=== PATIENT | male | born 2000 | race Caucasian/White ===

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

== ENCOUNTER 2019-11-02 19:26 | Inpatient (IN) ==
--- NOTE | 2019-11-02 19:55 | Emergency Department Note ---
History of Present Illness General Chief complaint: Mental Health Evaluation Stated complaint: mental health eval Time Seen by Provider: 11/02/19 19:38 Source: patient and other (Mental health wrapper caser) History of Present Illness Provider complaint: Headache Onset (ago): hour(s) Location: head Radiation: non-radiation Severity: mild Pain Consistency: + constant Quality: + aching Exacerbated By: + none Associated symptoms: + other (Upset); no chest pain, no cough, no fever/chills, no nausea/vomiting and no shortness of breath This is a 19-year-old male who is brought in by police for mental health evaluation. The patient does complain of a mild frontal headache which occurred after hitting his head with a speaker earlier this morning. He describes it as an ache. Is located in the frontal region without radiation. No modifying factors. No associated numbness or weakness in his extremities, dizziness or vomiting. According to the mental health wrapper caser the patient was here about a week ago and lied about falling when he actually hit his head against a tree. His father reported that he try to cut his stroke with a knife last night and he had to stop them. The patient denies feeling suicidal. He states that he just got upset because people aggravate him and that if he was given some time he would be fine. He denies any other physical complaints. He has no chest pain, shortness of breath, abdominal pain, vomiting or diarrhea, cough or cold symptoms or fever. He does admit to some alcohol use today and denies drug use. Home Medications Home Medications Medication Instructions Recorded Confirmed Type amitriptyline 50 mg PO HS 04/18/19 11/02/19 History clonidine HCl 0.1 mg PO HS 04/18/19 11/02/19 History quetiapine 300 mg PO HS 04/18/19 11/02/19 History hydroxyzine HCl 50 mg PO HS PRN 09/24/19 11/02/19 History melatonin 3 mg PO HS PRN 11/02/19 11/02/19 History Allergies Allergy/AdvReac Type Severity Reaction Status Date / Time Penicillins Allergy Intermediate HIVES Verified 11/02/19 20:21 haloperidol [From Haldol] AdvReac Agitated Verified 11/02/19 21:29 Past Med/Surg History Medical History Autism spectrum disorder Cannabis abuse Cluster B personality disorder Mood disorder Outbursts of anger Surgical History No pertinent past surgical history Family History Mother Bipolar disorder Uncle Drug addiction Social History Smoking Status: Current every day smoker Tobacco Type: Cigarettes Preferred Language: Kiswahili Communication Ability: Effective Visual Impairment: No Limitations Hearing Ability: Normal Cork Tile Floor Layer Required: No Beliefs That Will Affect Care: None Current Living Situation: Family Feels Safe at Home: Yes Review of Systems See HPI for pertinent positives & negatives. and A total of 10 systems reviewed and were otherwise negative Physical Exam Vital Signs Vital Signs - 24 hr 11/02/19 19:33 11/02/19 23:29 Temperature 37 C Temperature Source Oral Pulse Rate 83 Pulse Rate [Finger] 129 H Respiratory Rate 18 18 Respiratory Effort / Characteristics Non-Labored Respiratory Depth Normal Respiratory Pattern Regular Blood Pressure 161/98 H Blood Pressure [Left Arm] 149/89 H Blood Pressure Mean 119 Blood Pressure Mean [Left Arm] 109 Pulse Oximetry 96 97 Oxygen Delivery Method Room Air Room Air Sepsis Recent Fever Within 48 Hours No Sepsis New/Unexplained Change in Mental Status No Sepsis Action Taken by Nursing No Action Required Constitutional: Vital signs reviewed. Eyes: Pupils are equal round reactive to light. Conjunctiva are noninjected. ENT: No soft tissue swelling to the head. Pharynx is clear without erythema or exudate. Mucous membranes are moist. Neck supple without meningeal signs. Respiratory: Clear to auscultation bilaterally. Breath sounds are equal bilaterally. Cardiovascular: Regular rate and rhythm. No rubs or gallops. GI: Soft, nondistended and nontender. Bowel sounds are present. Musculoskeletal: No peripheral edema. Old scattered lacerations to the left forearm. No signs of cellulitis. Integumentary: No cyanosis. or jaundice. Neurologic: The patient is awake and alert. Cranial nerves II-XII are intact. Motor is 5 out of 5 all extremities. Sensation is intact to light touch all extremities. Normal speech. No pronator drift. Psychiatric: Guarded affect. Course Administered Medications Discontinued Medications Diphenhydramine HCl (Diphenhydramine Hcl 50 Mg/Ml Vial) 50 mg IM NOW STA Stop: 11/02/19 21:44 Last Admin: 11/02/19 21:57 Dose: 50 mg Documented by: [id number] Haloperidol Lactate (Haloperidol Lactate 5 Mg/Ml 1 Ml Vial) 5 mg IM NOW STA Stop: 11/02/19 21:14 Last Admin: 11/02/19 21:29 Dose: Not Given Documented by: [id number] Haloperidol Lactate (Haloperidol Lactate 5 Mg/Ml 1 Ml Vial) 10 mg IM NOW STA Stop: 11/02/19 23:56 Last Admin: 11/03/19 00:01 Dose: 10 mg Documented by: [id number] Lorazepam (Lorazepam 2 Mg/Ml Vial (Im Use)) 2 mg IM NOW STA Stop: 11/02/19 21:14 Last Admin: 11/02/19 21:29 Dose: 2 mg Documented by: [id number] Medical Decision Making Differential Diagnosis Mood disorder, suicidal ideation, concussion, contusion, alcohol intoxication Medical Records Attestation: I reviewed the patient's medical records. I did perform a limited focused review of portions of the patient's old chart on the electronic medical record. The patient was seen here in July for self- injurious behavior including head banging and cutting of his left arm. He was discharged home after treatment in the emergency department. The patient was seen here October 25 for a head injury. He had a negative head CT at that time and was discharged home. Home Medications Current Medication List: was personally reviewed by me Laboratory Data Attestation: I reviewed the patient's lab results. Result diagrams: 11/02/19 20:15 11/02/19 20:15 Lab Results 11/02/19 11/02/19 11/02/19 Range/Units 20:15 20:15 20:15 WBC 7.50 (4.8-10.8) K/uL RBC 5.09 (4.7-6.1) M/uL Hgb 16.0 (14.0-18.0) g/dL Hct 45.3 (42-52) % MCV 89.0 (80-100) fL MCH 31.4 (25-34) pg MCHC 35.3 (32-36) g/dL RDW Std Deviation 41.7 (36.4-46.3) fL RDW Coeff of Efrem 12.9 (11.5-14.5) % Plt Count 336 (130-400) K/uL MPV 8.8 (7.4-10.4) fL Immature Gran % (Auto) 0.1 % Neut % (Auto) 62.5 % Lymph % (Auto) 31.1 % [place] % (Auto) 5.3 % Eos % (Auto) 0.7 % Baso % (Auto) 0.3 % Neut # (Auto) 4.69 (1.4-6.5) K/uL Lymph # (Auto) 2.33 (1.2-3.4) K/uL [place] # (Auto) 0.40 (0.11-0.59) K/uL Eos # (Auto) 0.05 (0-0.5) K/uL Baso # (Auto) 0.02 (0-0.2) K/uL Immature Gran # (Auto) 0.01 (0.00-0.02) K/uL Sodium 142 (136-145) mmol/L Potassium 3.8 (3.5-5.1) mmol/L Chloride 110 H (98-107) mmol/L Carbon Dioxide 24 (21-32) mmol/L Anion Gap 8.0 (3-11) BUN 8 (7-18) mg/dl Creatinine 0.74 (0.6-1.4) mg/dl Est Cr Clr Drug Dosing Not Reportable Est GFR ( Amer) > 150.0 Est GFR (Non-Af Amer) 132.8 BUN/Creatinine Ratio 11.1 (10-20) Glucose 84 (70-99) mg/dl Calcium 8.8 (8.5-10.1) mg/dl Total Bilirubin 0.4 (0.2-1) mg/dl AST 19 (15-37) U/L ALT 35 (12-78) U/L Alkaline Phosphatase 70 (45-117) U/L Total Protein 7.7 (6.4-8.2) gm/dl Albumin 3.9 (3.4-5.0) gm/dl Globulin 3.8 (2.5-4.0) gm/dl Albumin/Globulin Ratio 1.0 (0.9-2) TSH 0.255 L (0.300-4.500) uIu/ml Free T4 1.15 (0.8-1.6) ng/dl Urine Color Urine Appearance (Clear) Urine pH (4.5-7.5) Ur Specific [place] (1.000-1.030) Urine Protein (Negative) Urine Glucose (UA) (Negative) Urine Ketones (Negative) Urine Blood (Negative) Urine Nitrite (Negative) Urine Bilirubin (Negative) Urine Urobilinogen (Negative) Ur Leukocyte Esterase (Negative) Salicylates < 1.7 L (2.8-20) mg/dl Urine Opiates Screen (Neg) Ur Methadone, Qual (Neg) Acetaminophen < 2 L (10-30) ug/ml Urine Barbiturates (Neg) Ur Phencyclidine (PCP) (Neg) U Amphetamin/Meth Scrn (Neg) MDMA (Ecstasy) Screen (Neg) U Benzodiazepines Scrn (Neg) Ur Cocaine Metabolite (Neg) U Marijuana (THC) Screen (Neg) Ethyl Alcohol mg/dL (0-3) mg/dl 11/02/19 11/02/19 11/02/19 Range/Units 20:15 20:28 20:28 WBC (4.8-10.8) K/uL RBC (4.7-6.1) M/uL Hgb (14.0-18.0) g/dL Hct (42-52) % MCV (80-100) fL MCH (25-34) pg MCHC (32-36) g/dL RDW Std Deviation (36.4-46.3) fL RDW Coeff of Efrem (11.5-14.5) % Plt Count (130-400) K/uL MPV (7.4-10.4) fL Immature Gran % (Auto) % Neut % (Auto) % Lymph % (Auto) % [place] % (Auto) % Eos % (Auto) % Baso % (Auto) % Neut # (Auto) (1.4-6.5) K/uL Lymph # (Auto) (1.2-3.4) K/uL [place] # (Auto) (0.11-0.59) K/uL Eos # (Auto) (0-0.5) K/uL Baso # (Auto) (0-0.2) K/uL Immature Gran # (Auto) (0.00-0.02) K/uL Sodium (136-145) mmol/L Potassium (3.5-5.1) mmol/L Chloride (98-107) mmol/L Carbon Dioxide (21-32) mmol/L Anion Gap (3-11) BUN (7-18) mg/dl Creatinine (0.6-1.4) mg/dl Est Cr Clr Drug Dosing Est GFR ( Amer) Est GFR (Non-Af Amer) BUN/Creatinine Ratio (10-20) Glucose (70-99) mg/dl Calcium (8.5-10.1) mg/dl Total Bilirubin (0.2-1) mg/dl AST (15-37) U/L ALT (12-78) U/L Alkaline Phosphatase (45-117) U/L Total Protein (6.4-8.2) gm/dl Albumin (3.4-5.0) gm/dl Globulin (2.5-4.0) gm/dl Albumin/Globulin Ratio (0.9-2) TSH (0.300-4.500) uIu/ml Free T4 (0.8-1.6) ng/dl Urine Color Yellow Urine Appearance Clear (Clear) Urine pH 6.0 (4.5-7.5) Ur Specific [place] 1.019 (1.000-1.030) Urine Protein Negative (Negative) Urine Glucose (UA) Negative (Negative) Urine Ketones Trace H (Negative) Urine Blood Negative (Negative) Urine Nitrite Negative (Negative) Urine Bilirubin Negative (Negative) Urine Urobilinogen Negative (Negative) Ur Leukocyte Esterase Negative (Negative) Salicylates (2.8-20) mg/dl Urine Opiates Screen Neg (Neg) Ur Methadone, Qual Neg (Neg) Acetaminophen (10-30) ug/ml Urine Barbiturates Neg (Neg) Ur Phencyclidine (PCP) Neg (Neg) U Amphetamin/Meth Scrn Neg (Neg) MDMA (Ecstasy) Screen Neg (Neg) U Benzodiazepines Scrn Neg (Neg) Ur Cocaine Metabolite Neg (Neg) U Marijuana (THC) Screen Neg (Neg) Ethyl Alcohol mg/dL 133.0 H (0-3) mg/dl Blood Pressure Blood Pressure Findings: Elevated blood pressure Blood Pressure Disposition: Referred to patients primary care provider Head Trauma GCS Score: 15 MDM Narrative I did evaluate the patient as noted above. The patient is brought in here by police for self-injurious behavior. His father states that he tried to cut his own throat yesterday. He did fill out a 302 petition. The patient states that he was just upset and admits to drinking alcohol earlier today. He denies suicidal ideation or homicidal ideation at this time. He complains of minor headache from hitting his head with a speaker. He is absolutely refusing head CT at this time. He is neurologically intact. I did order a urine analysis. I did order and review the patient's blood work as noted in the electronic medical record. His CBC is unremarkable without leukocytosis or anemia. Electrolytes are unremarkable as well. Serum alcohol is 133. During his evaluation in the emergency department the patient became increasingly agitated. We were unable to talk him down and he became increasingly aggressive. He was given Benadryl 50 and Ativan 2 mg IM. Apparently he has a Haldol adverse reaction listed. The patient became increasingly more agitated and had to be placed in full leather restraints. At one point he tried to break his cell phone and use the last 2 cut himself. I did signed the 302 involuntary commitment form. The delegate from [facility] did evaluate the patient. She spoke to the psychiatrist on-call who requested the patient be given 10 mg of Haldol IM as he has received Haldol multiple times in the past. I did go ahead and order 10 mg of Haldol IM. He did calm down significantly. He was admitted to the [facility] behavioral unit under a 302 warrant. Impression & Plan Mood disorder, Head injury, Self-injurious behavior, Suicidal ideation Discharge Plan Visit Data Chief Complaint: Mental Health Evaluation Stated Complaint: mental health eval ED Provider: Brenden Licea Discharge Problem: Mood disorder, Head injury, Self-injurious behavior, Suicidal ideation Forms Stand Alone Forms: [facility], Suicide Prevention Resources Prescriptions Prescriptions: No Action amitriptyline 50 mg tablet 50 mg PO HS RF: 0 quetiapine 300 mg tablet 300 mg PO HS RF: 0 clonidine HCl 0.1 mg tablet 0.1 mg PO HS RF: 0 hydroxyzine HCl 50 mg tablet 50 mg PO HS PRN (Reason: Agitation) RF: 0 melatonin 3 mg Tablet 3 mg PO HS PRN (Reason: Sleep) RF: 0 Referrals Referrals: Qing Marquez MD [Primary Care Provider] - Discharge Problem: Head injury Qualifiers: Encounter type: initial encounter Qualified Code(s): S09.90XA - Unspecified injury of head, initial encounter
[2019-11-02 20:28] LABS: Basophils # (auto) 0.02 K/uL (0-0.2); Basophils % (auto) 0.3 %; Eosinophils # (auto) 0.05 K/uL (0-0.5); Eosinophils % (auto) 0.7 %; Hematocrit (blood only) 45.3 % (42-52); Immature Granulocytes # (auto) 0.01 K/uL (0.00-0.02); Immature Granulocytes % (auto) 0.1 %; Lymphocytes # (auto) 2.33 K/uL (1.2-3.4); Lymphocytes % (auto) 31.1 %; Mean Corpuscular Hemoglobin 31.4 pg (25-34); Mean Corpuscular Hgb Conc 35.3 g/dL (32-36); Mean Platelet Volume 8.8 fL (7.4-10.4); Monocytes % (auto) 5.3 %; Neutrophils # (auto) 4.69 K/uL (1.4-6.5); Neutrophils % (auto) 62.5 %; Platelet Count 336 K/uL (130-400); RDW Coefficient of Variation 12.9 % (11.5-14.5); RDW Standard Deviation 41.7 fL (36.4-46.3); Red Blood Count 5.09 M/uL (4.7-6.1)
[2019-11-02 20:37] LABS: Appearance Urine Clear (Clear); Bilirubin Urine Negative (Negative); Blood Urine Negative (Negative); Color Urine Yellow; Glucose Urine UA Negative (Negative); Ketones Urine Trace (Negative); Leukocyte Esterase Urine Negative (Negative); Nitrite Urine Negative (Negative); Protein Urine Negative (Negative); Specific Gravity Urine 1.019 (1.000-1.030); Urobilinogen Urine Negative (Negative)
[2019-11-02 20:45] LABS: Alanine Aminotransferase 35 U/L (12-78); Albumin Level 3.9 gm/dl (3.4-5.0); Aspartate Aminotransferase 19 U/L (15-37); BUN Creatinine Ratio 11.1 (10-20); Blood Urea Nitrogen 8 mg/dl (7-18); Calcium 8.8 mg/dl (8.5-10.1); Carbon Dioxide 24 mmol/L (21-32); Chloride 110 mmol/L (98-107); Est GFR (African American) > 150.0; Est GFR (Non-African American) 132.8; Glucose 84 mg/dl (70-99); Potassium 3.8 mmol/L (3.5-5.1); Sodium 142 mmol/L (136-145)
[2019-11-02 20:55] LABS: Alkaline Phosphatase 70 U/L (45-117); Bilirubin,Total 0.4 mg/dl (0.2-1); Globulin 3.8 gm/dl (2.5-4.0); Thyroid Stimulating Hormone 0.255 uIu/ml (0.300-4.500); Total Protein 7.7 gm/dl (6.4-8.2)
[2019-11-02 20:58] LABS: Acetaminophen < 2 ug/ml (10-30); Salicylate < 1.7 mg/dl (2.8-20)
[2019-11-02] MEDS ORDERED: NICOTINE POLACRILEX 2 MG GUM MT PRN (21:00)
[2019-11-02 21:08] LABS: T4 Free Thyroxine 1.15 ng/dl (0.8-1.6)
[2019-11-02] MEDS ORDERED: LORazepam 2 MG/ML VIAL (IM USE) IM STA (21:13)
[2019-11-02] MEDS ORDERED: HALOPERIDOL LACTATE 5 MG/ML 1 ML VIAL IM STA ×2 (21:13→23:55)
[2019-11-02] MEDS ORDERED: DiphenhydrAMINE HCL 50 MG/ML VIAL IM STA (21:43)
[2019-11-02 22:01] LABS: Amphetamines+Metham, Urine Neg (Neg); Barbiturates, Urine Neg (Neg); Benzodiazepine, Urine Neg (Neg); Cocaine, Urine Neg (Neg); MDMA (Ecstacy), Urine Neg (Neg); Methadone, Urine Neg (Neg); Opiate, Urine Neg (Neg); Phencyclidine, Urine Neg (Neg)
[2019-11-02] MEDS ORDERED: KETAMINE HCL INJ 50 MG/ML 10 ML VIAL IM PRN (22:13)
[2019-11-03] MEDS ORDERED: ACETAMINOPHEN 325 MG TAB PO PRN (02:47)
[2019-11-03] MEDS ORDERED: BISMUTH SUBSALICYLATE PER ML OMNICELL CHARGE PO PRN (02:47)
[2019-11-03] MEDS ORDERED: SODIUM CHLORIDE 0.65% NA SOLN 45 ML (OCEAN) PRN (02:47)
[2019-11-03] MEDS ORDERED: MAGNESIUM HYDROXIDE SUSP 30 ML UDC PO PRN (02:47)
[2019-11-03] MEDS ORDERED: ALUMINUM/MAGNESIUM SUSP 30 ML UDC PO PRN (02:47)
[2019-11-03] MEDS ORDERED: haloperidoL 5 MG TAB PO PRN (02:48)
[2019-11-03] MEDS ORDERED: BENZTROPINE MESYLATE 1 MG TAB PO PRN (02:51)
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
[2019-11-03] MEDS ORDERED: MELATONIN 3 MG TAB PO PRN (09:32)
[2019-11-03] MEDS: cloNIDine HCL 0.1 MG TAB PO SCH ×2 (10:48→19:57)
[2019-11-03] MEDS ORDERED: QUETIAPINE FUMARATE 300 MG TABLET PO ONE (19:45)
[2019-11-03] MEDS: haloperidoL 5 MG TAB PO SCH (20:01)
[2019-11-04 06:01] LABS: Glucose Fasting 75 mg/dl (70-99)
[2019-11-04 06:07] LABS: Chol HDL Ratio 3; Cholesterol 118 mg/dl (0-200); HDL Cholesterol 42 mg/dl; LDL Cholesterol Calculated 62 mg/dl; Triglycerides 72 mg/dl (0-150); VLDL Cholesterol 14 mg/dl
--- NOTE | 2019-11-04 06:29 | Electrocardiogram Report ---
Test Reason : Blood Pressure : / mmHG Vent. Rate : 093 BPM Atrial Rate : 093 BPM P-R Int : 214 ms QRS Dur : 096 ms QT Int : 340 ms P-R-T Axes : 047 029 046 degrees QTc Int : 422 ms Sinus rhythm with 1st degree A-V block Otherwise normal ECG When compared with ECG of 24-SEP-2019 22:37, [place] interval has increased Confirmed by Jama Mchugh ([id number]) on 11/04/2019 6:29:18 AM Referred By: REFERRED SELF Confirmed By:Jama Mchugh
[2019-11-04] MEDS: cloNIDine HCL 0.1 MG TAB PO SCH ×2 (07:53→20:27)
[2019-11-04] MEDS ORDERED: OLANZAPINE ZYDIS 10 MG ORALLY DIS. TAB PO STA ×2 (09:27→11:26)
--- NOTE | 2019-11-04 09:29 | Psychiatric Progress Note ---
Date of Service November 04, 2019 Impression / Recommendations Impression 19-year-old male who lives with a family friend, James, whom he refers to as his grandfather, has a history of schizophrenia, cluster B personality disorder, mood disorder with anger outbursts, substance abuse, and autism spectrum disorder, numerous previous inpatient hospitalizations, and longstanding treatment noncompliance who presented with police after he smashed a speaker over his head, and attempted to cut his throat with a knife the day prior. He is admitted on a 302 with petition from James stating he has been increasingly aggressive, noncompliant with medications, engaging in self injury, has been depressed, angry, and suicidal. The patient was agitated and aggressive in the ER, requiring physical and chemical restraints. He was uncooperative with the admission assessment. I will file for 303 hearing to be held tomorrow, as his commitment expires on Thursday which is a holiday, and recommend medications over objection. Inpatient treatment is medically necessary due to the severity of his symptoms and risk for harm to both himself and others if discharged. He would benefit from a long-acting injectable antipsychotic. Arrangements for a case resource manager have been made and his new case resource manager, Mr. Chatman, has been introduced to the patient. The 303 petition for continued hospitalization was granted and the hearing today, and although the patient had been quite agitated during the hearing he seemed to have calm down when the testimony cited our observation that he was having substantial difficulty regulating his mood in the face of relatively minor stimuli, whether positive or negative. When it was determined that he would be retained at the hospital, the patient smiled and said that he wanted to work with us to "get better," and hope that he could be discharged "as soon as possible." Ideally, the patient will be placed on a long-term injectable psychiatric medication. He received a stat dose of Zyprexa 10 mg this morning because of agitation, and the patient seems to responded quite well to it and even made a point several times to say that he liked the medication and that he would continue to take it because he feels that it helps. Accordingly, it may be somewhat difficult to convince him to an oral medication that can be converted to an injectable medication, such as aripiprazole or paliperidone. A second opinion regarding the need for medications over objection has been provided by the undersigned, but apart from Too the patient full except recently says that he does not want to take--finding a short acting medication that can be given over objection before converting to a long- acting medication is the issue. Accordingly, we may end up continuing Zyprexa with the patient's favorable response and his personal endorsement during the s lakes[place] and at discharge. (1) Suicidal ideation: 11/02 -continue involuntary hospitalization, suicide checks for safety. -He will need a family meeting with James once he is in better behavioral control, to review standard safety recommendations including ensuring no access to weapons or medications in the home, and review of a discharge safety plan. 11/03 -Today, the patient reports that he is not having thoughts of suicide, but he also says that he has had difficulty regaining self possession when irritated or frightened or frustrated. As recently as yesterday, this difficulty regaining self possession has led to dangerous behaviors; such as breaking solid objects over his head, banging his head, or attempting to cut himself with sharp objects, and the nature and degree these volitional behaviors represent a substantial and eminent risk of serious morbidity or mortality if not successfully treated. (2) Schizophrenia: 11/02 -history of schizophrenia noted in records, has been on multiple antipsychotics and reportedly did well on clozapine, but was nonadherent. Most recently was on quetiapine prescribed by Dr. Deshpande, but indicated he had not been taking it for several months. A more potent antipsychotic is indicated for acute stabilization, and as he responded well to haloperidol in the past and on presentation in the ER, I will order 5 mg at bedtime to start. -He would benefit from a long-acting injectable antipsychotic and will work towards that during this hospitalization. Fasting labs ordered tomorrow for monitoring on an antipsychotic. -Recommend ongoing involuntary inpatient treatment, and will file for 303 hearing to be held tomorrow, as his commitment expires 11/07/2019 which is a holiday. -Recommend medications over objection, as he has a clear history of severe mental illness with repeated serious attempts to harm himself in the setting of medication noncompliance. His symptoms are unlikely to improve without medication, and he has demonstrated improvement when on psychotropic medications in the past. Dr. Mcgee will see him tomorrow for a second opinion. -Coordinate care with outpatient clinicians (C[facility] Schuster at [facility] and Dr. Bassett), unclear if he has a blended case resource manager but would benefit from one. Consider a [address] [place] [address]. 11/03 -Second opinion for medication over objection completed by Dr. Mcgee today. (See supplemental note) -With a great deal of encouragement and explanations from Dr. Mcgee and staff the patient did agree to take Zyprexa Zydis 10 mg by mouth voluntarily. Approximately 30 or 40 minutes later he approached us to say that he feels that the medication had been helpful and that he was feeling "better." Later in the morning, the patient said that he had again started to a little anxious, and given the fact that he had responded favorably and without any noted adverse effects to Zyprexa 10 mg p.o., we gave him a second dose of Zyprexa Zydis 10 mg by mouth. The patient reported that he "likes" Zyprexa Zydis because it "calm his [him] down," and allows him to think "more slowly." He also spontaneously explained that he felt that Zyprexa was helping him to be far less emotionally irritable, and that he understood that that was 1 of the major goals of the current hospitalization. -It is agreed that given the patient's long history of nonadherence the ideal medication would be one that could be given as a long-acting injectable. However, at this point, the patient is saying that he does not want any medication other than Zyprexa, and that he absolutely would not consider ever voluntarily taking haloperidol. With the patient's condition improves and he regains behavioral control, it may be possible to convince the patient to try oral immediate release Invega, and then, if tolerated, switch to Invega Sustenna. However, it is anticipated that this will be a short stay with community reentry as soon as possible. (3) Mood disorder: 11/02 -in the past has been diagnosed with rule out bipolar disorder versus depressive disorder, and his paint and table edger notes he has appeared depressed lately. Patient not cooperative with assessment today, so we will continue to try to engage him. -Consider a trial of Depakote to target mood instability and anger outbursts. 11/02 -The patient does not meet standard criteria for bipolar 1 or 2, but the diagnosis of rapid cycling or atypical bipolar disorder must be considered. Zyprexa, alone, may prove to be effective in stabilizing the patient's mood. In addition to Depakote, other mood stabilizer such as lamotrigine may be an option. However, adherence with multiple psychiatric medications can reasonably be projected to be an issue in this case. (4) Outbursts of anger: 11/02 -longstanding issue, likely related to ASD and personality traits. Continue private room and use of the ALMITA, excused from groups until under better behavioral control. 11/03 -see above. (5) Self-injurious behavior: 11/02 -work on healthy coping skills to use in place of self injury, consider Depakote as above. 11/03 -Zyprexa Zydis 10 mg twice a day as being started. The patient has received a combined dosage of 20 mg of Zyprexa Zydis today and is self reporting improvemen t. The treatment team is also noticing that the patient's behavior seems to have come under much better control and that he seems less impulsive, and less emotionally labile. (6) Autism spectrum disorder: (7) Noncompliance: 11/02 -recommend OROZCO and 304 IOC. (8) Cluster B personality disorder: Risk Factors Assessment Male: Yes : Yes Do You Have Access To A Gun?: No Health Problems: No Mental Health Diagnoses: Yes Substance Use Disorders: Yes Previous Attempt: Yes Previous Psychiatric Hospitalization: Yes Smoker: Yes Protective Factors Assessment : No Responsible for Young Children: No Employed: No Stable Relationships: No Supportive Family: No Good Rapport with Provider: No Interval History Chief Complaint "I Got Paranoid and Busted up my speaker". Review of Systems Sleep Information Total Hours of Sleep: 8.25 Sleep Comments: Pt on Q 15 minute checks. Meal Information Percent Meal Consumed - Breakfast: 0 Percent Meal Consumed - Lunch: 50 Percent Meal Consumed - Dinner: 100 Nutrition Comment: pt. ate his breakfast at 1100 Subjective Subjective Patient was seen & assessed and interval progress reviewed with treatment team. I met individually with the patient in order to assess his mental status, evaluate his response to treatment, make any necessary changes in the patient's treatment regimen and coordination with the patient, explain the purpose of, and the procedures that were to be followed, during his involuntary commitment (303) hearing this morning, and address issues, questions and concerns that may arise. The patient began by describing the circumstances that had led to his admission. He told me that he was feeling "paranoid" (in his word) and said that he was aware that people were following him, attempting to harass him, and possibly trying to hurt him. The patient notes that he was frustrated by the above circumstance and, within this context, was feeling extremely irritable and sensitive to what he referred to as "Bull Shit from people." He acknowledges that he engaged in behaviors such as breaking his "speaker" (apparently referring to a portable audio device that he uses to play or listen to music) over his head. He also acknowledges that this had happened shortly prior to his evaluation in the emergency room. The patient also acknowledges that he had "banged" his head into a tree, again and frustration because he felt that he was being harassed and followed by people, or that people were intentionally trying to irritate him. I mentioned that there was a report in the record that he had also recently held a knife to his throat, and the patient said that this was not "exactly true," but did not have an alternative explanation. Also, he acknowledges that the multiple superficial cuts about both of his forearms were caused by self-inflicted wounds. Of note is the report that, in the emergency room when being evaluated for admission to 3 . the patient broke his cell phone and used pieces of the cell phone to attempt to cut himself. During our interview, the patient became very agitated when I brought up the question of medication. He told me that he would only consider "Xanax, Ativan, or may be Klonopin," and when I told him that I would not recommend prescribing a benzodiazepine, he became even more angry and said, "I am not asking for any of that shit. I want Xanax, Ativan or Klonopin." Attempts to explain that the medications that he mentioned were all benzodiazepines met with and even anger response and it became necessary to drop the subject. He became very angry when I suggested that perhaps we could prescribe haloperidol, particularly since he had had a favorable response to it in the emergency room on the day of admission (yesterday). Paradoxically, the patient acknowledged that it had helped him, and then after seeming to have realized what he had just said, he quickly added, "but it makes me worse. I cannot take it. It makes me extremely paranoid." Several other medications were mentioned in the patient also said that he would declined to take those medications and zeroed back to "Xanax, Ativan, or Klonopin." Although the purpose and details of what was then the upcoming involuntary 303 hearing were reviewed with the patient by the undersigned prior to the hearing, he entered the hearing and immediately said, on record, "what is this? Why am I here?" He shouted over attempts to again explain the purpose of the hearing, and he repeated several times "am I I going to go home after this?!" He frequently attempted to interrupt the hearing and we had trouble redirecting him. However, he did listen intently when I (Dr. Mcgee) testified that a serious concern is the fact that the patient is so emotionally explosive and that he has demonstrated that even slight provocations can lead to angry outbursts that are so intense that they frighten other people. The patient did agree to take Zyprexa Zydis 10 mg, and about 40 minutes later he said that it helped. Later in the morning, he told me that he felt that the Zyprexa had been "really good," and that he thought that it helped him be "more calm" and that it seemed to "stop [him] from getting upset and agitated like I have been doing." Later, he complained of anxiety, and received a second dose of Zyprexa Zydis 10 mg, and he reported that the anxiety resolved fairly quickly thereafter. He was retained at his 303 hearing after the petition was granted. We also met with the patient's new case resource manager, Mr. Chatman, described our goals for our plan effort to reintegrate Mr. Melchor back into the community when clinically stable. Physical Exam Psychiatric Orientation: alert, oriented x 3 and cooperative Apperance: appropriately dressed, appropriately groomed and appeared stated age Eye Contact: + fair eye contact Motor Behavior: + psychomotor agitation Speech: + loud speech The patient's speech ranged from normal and "playful" to furious and shouting, dependent on relatively minor queues. Affect: + labile affect and + angry affect The patient's affect ranged from silly to angry in rapid succession. Mood: + irritable mood and + angry mood Thought Process: + tangential thought process, + perseveration and + concrete thought process Thought Content: + delusions (Patient reports that he is being followed and harassed by other people and that these persons, usually unknown to him, may be planning to cause physical harm or emotional distress.) and + persecution Suicidal Thoughts: denies suicidal thoughts However, the patient is repeatedly engaged in self-injurious behaviors that are such that they have the potential to have caused serious physical harm or even . Homicidal Thoughts: denies homicidal thoughts Patient reports that he is not intending to cause physical harm to other people. However, he required physical restraints yesterday in the emergency department because he was perceived as being out of control and potentially dangerous to other people. Hallucinations: + auditory hallucinations Cognition: recent memory grossly intact; + attention not intact Estimated Intelligence: + below average estimated intelligence Insight: + poor insight Judgement: + poor judgement Vital Signs (Past 24 Hours) Last Vital Signs Temp 36.6 C 11/04/19 06:00 Pulse 65 11/04/19 06:48 Resp 20 11/04/19 06:00 BP 129/87 11/04/19 06:48 Pulse Ox 96 11/03/19 03:41 Results & Data ([facility]) Laboratory Results Laboratory Results - last 24 hr 11/04/19 04:41 Fasting Glucose 75 Triglycerides 72 Cholesterol 118 LDL Cholesterol, Calc 62 VLDL Cholesterol, Calc 14 HDL Cholesterol 42 Cholesterol/HDL Ratio 3 Current Inpatient Medications Current Inpatient Medications: Current Inpatient Medications Acetaminophen (Acetaminophen 325 Mg Tab) 650 mg PO Q4H PRN PRN Reason: Headache or Minor Fever Stop: 12/03/19 02:46 Al Hydrox/Mg Hydrox/Simethicone (Aluminum/Magnesium Susp 30 Ml Udc) 30 ml PO Q4H PRN PRN Reason: GI Upset Stop: 12/03/19 02:46 Benztropine Mesylate (Benztropine Mesylate 1 Mg Tab) 1 mg PO Q4 PRN PRN Reason: EPS SYMPTOMS Stop: 12/03/19 02:50 Bismuth Subsalicylate (Bismuth Subsalicylate Per Ml Omnicell Charge) 15 ml PO PRN PRN PRN Reason: Loose Stool Stop: 12/03/19 02:46 Clonidine HCl (Clonidine Hcl 0.1 Mg Tab) 0.1 mg PO BID FANNY Stop: 12/03/19 09:44 Last Admin: 11/04/19 07:53 Dose: 0.1 mg Documented by: Haloperidol (Haloperidol 5 Mg Tab) 5 mg PO Q4 PRN PRN Reason: Agitation Stop: 12/03/19 03:59 Haloperidol (Haloperidol 5 Mg Tab) 5 mg PO HS FANNY Stop: 12/03/19 21:59 Last Admin: 11/03/19 20:01 Dose: Not Given Documented by: Hydroxyzine HCl (Hydroxyzine Hcl 25 Mg Tab) 50 mg PO HSZ PRN PRN Reason: Insomnia or Anxiety Stop: 12/03/19 02:46 Hydroxyzine HCl (Hydroxyzine Hcl 25 Mg Tab) 25 mg PO Q4H PRN PRN Reason: Anxiety Stop: 12/03/19 02:46 Lorazepam (Lorazepam 1 Mg Tab) 2 mg PO Q4 PRN PRN Reason: Agitation Stop: 12/03/19 02:49 Magnesium Hydroxide (Magnesium Hydroxide Susp 30 Ml Udc) 30 ml PO DAILY PRN PRN Reason: Constipation Stop: 12/03/19 02:46 Melatonin (Melatonin 3 Mg Tab) 3 mg PO HS PRN PRN Reason: Sleep Stop: 12/03/19 09:31 Olanzapine (Olanzapine Zydis 10 Mg Orally Dis. Tab) 10 mg PO NOW STA Stop: 11/04/19 09:28 Sodium Chloride (Sodium Chloride 0.65% Na Soln 45 Ml (Armorel)) 1 - 2 sprays NA PRN PRN PRN Reason: Nasal Dryness/Congestion Stop: 12/03/19 02:46 Mental Health & Subst Abuse Tx Therapist Name of Therapist: unknown Project Builder Name of Project Builder: Santino Salgado
--- NOTE | 2019-11-04 09:31 | Communication Note ---
Date of Service: November 04, 2019 Patient was interviewed this morning by the undersigned, and his medical record was reviewed. He carries a primary diagnosis of schizophrenia, and has a recent history of behaviors such as striking himself in the head with hard objects, holding a knife to his throat and threatening to cut himself, and, yesterday in the ED he broke his phone and tried to use the pieces to cut himself. Mr. Melchor tells us that he is being followed and harassed by persons unknown. The patient is refusing multiple antipsychotic mediations when offered, and gives non sensical explanations for this "They all make [me] worse." There is a long history of non-adherence with medications. The patient's mental illness (schizophrenia) is unlikely to respond to any intervention other than psychiatric medications, medications that he is periodically and categorically refusing, medications over his objection is medically necessary and appropriate.
[2019-11-04] MEDS: haloperidoL 5 MG TAB PO SCH (20:27)
[2019-11-05] MEDS: cloNIDine HCL 0.1 MG TAB PO SCH ×2 (08:42→20:18)
[2019-11-05] MEDS ORDERED: OLANZAPINE ZYDIS 10 MG ORALLY DIS. TAB PO SCH (09:00)
--- NOTE | 2019-11-05 09:06 | Psychiatric Progress Note ---
Date of Service November 05, 2019 Impression / Recommendations Impression 19-year-old male who lives with a family friend, James, whom he refers to as his grandfather, has a history of schizophrenia, cluster B personality disorder, mood disorder with anger outbursts, substance abuse, and autism spectrum disorder, numerous previous inpatient hospitalizations, and longstanding treatment noncompliance who presented with police after he smashed a speaker over his head, and attempted to cut his throat with a knife the day prior. He is admitted on a 302 with petition from James stating he has been increasingly aggressive, noncompliant with medications, engaging in self injury, has been depressed, angry, and suicidal. The patient was agitated and aggressive in the ER, requiring physical and chemical restraints. He was uncooperative with the admission assessment. I will file for 303 hearing to be held tomorrow, as his commitment expires on Thursday which is a holiday, and recommend medications over objection. Inpatient treatment is medically necessary due to the severity of his symptoms and risk for harm to both himself and others if discharged. He would benefit from a long-acting injectable antipsychotic. Arrangements for a casework supervisor have been made and his new casework supervisor, Mr. Chatman, has been introduced to the patient. The 303 petition for continued hospitalization was granted and the hearing today, and although the patient had been quite agitated during the hearing he seemed to have calm down when the testimony cited our observation that he was having substantial difficulty regulating his mood in the face of relatively minor stimuli, whether positive or negative. When it was determined that he would be retained at the hospital, the patient smiled and said that he wanted to work with us to "get better," and hope that he could be discharged "as soon as possible." Ideally, the patient will be placed on a long-term injectable psychiatric medication. He received a stat dose of Zyprexa 10 mg this morning because of agitation, and the patient seems to responded quite well to it and even made a point several times to say that he liked the medication and that he would continue to take it because he feels that it helps. Accordingly, it may be somewhat difficult to convince him to an oral medication that can be converted to an injectable medication, such as aripiprazole or paliperidone. A second opinion regarding the need for medications over objection has been provided by the undersigned, but apart from Too the patient full except recently says that he does not want to take--finding a short acting medication that can be given over objection before converting to a long- acting medication is the issue. Accordingly, we may end up continuing Zyprexa with the patient's favorable response and his personal endorsement during the stay and at discharge. 11/04 Reviewed. continue current meds and treatment plan though shift dosing of Zyprexa more toward hs. Will check throat swab and offer Cepacol lozenges, feel mainly sinus drainage, no additional criteria for COVID testing. Risk Factors Assessment Male: Yes : Yes Do You Have Access To A Gun?: No Health Problems: No Mental Health Diagnoses: Yes Substance Use Disorders: Yes Previous Attempt: Yes Previous Psychiatric Hospitalization: Yes Smoker: Yes Protective Factors Assessment : No Responsible for Young Children: No Employed: No Stable Relationships: No Supportive Family: No Good Rapport with Provider: No Interval History Chief Complaint "nobody listens, I'm bored, I need ADHD medication, I need to not be sleepy in the am or I won't be able to get a job". Review of Systems Sleep Information Total Hours of Sleep: 4.25 Sleep Comments: Pt on Q 15 minute checks. Meal Information Percent Meal Consumed - Breakfast: 100 Percent Meal Consumed - Lunch: 100 Percent Meal Consumed - Dinner: 100 Nutrition Comment: pt. ate his breakfast at 1100 Subjective Subjective Patient was seen & assessed and interval progress reviewed with nursing and social work. Periods of restlessness yesterday. He did accept Zyprexa zydis 10 mg X2 yesterday as prn and then agreed to standing order via Dr. Mcgee so did not require meds over objection. Erik is well known to me from my outpatient practice when he was a child/adolescent. He has always had hyperactivity, short attention span and dysregulated sleep and never been able to tolerate ADHD meds due to agitation (even with Strattera) and chatman on stimulants. He does c/o ST and had some productive cough, describes color so likely related to postnasal drip with sinus congestion, no fever. No travel or exposures. Physical Exam Psychiatric Orientation: alert Apperance: + disheveled Eye Contact: + fair eye contact Motor Behavior: + psychomotor agitation Affect: + blunted affect Mood: + depressed mood Thought Process: + concrete thought process Thought Content: reality based without delusions Suicidal Thoughts: denies suicidal thoughts Homicidal Thoughts: denies homicidal thoughts Hallucinations: no auditory hallucinations and no visual hallucinations Cognition: language grossly intact; + attention not intact Estimated Intelligence: + below average estimated intelligence Insight: + severely impaired insight Judgement: + severely impaired judgement Vital Signs (Past 24 Hours) Last Vital Signs Temp 36.9 C 11/05/19 06:00 Pulse 70 11/05/19 06:49 Resp 16 11/05/19 06:00 BP 139/78 11/05/19 06:49 Pulse Ox 96 11/03/19 03:41 Results & Data ([facility]) Current Inpatient Medications Current Inpatient Medications: Current Inpatient Medications Acetaminophen (Acetaminophen 325 Mg Tab) 650 mg PO Q4H PRN PRN Reason: Headache or Minor Fever Stop: 12/03/19 02:46 Al Hydrox/Mg Hydrox/Simethicone (Aluminum/Magnesium Susp 30 Ml Udc) 30 ml PO Q4H PRN PRN Reason: GI Upset Stop: 12/03/19 02:46 Benztropine Mesylate (Benztropine Mesylate 1 Mg Tab) 1 mg PO Q4 PRN PRN Reason: EPS SYMPTOMS Stop: 12/03/19 02:50 Bismuth Subsalicylate (Bismuth Subsalicylate Per Ml Omnicell Charge) 15 ml PO PRN PRN PRN Reason: Loose Stool Stop: 12/03/19 02:46 Clonidine HCl (Clonidine Hcl 0.1 Mg Tab) 0.1 mg PO BID FANNY Stop: 12/03/19 09:44 Last Admin: 11/05/19 08:42 Dose: 0.1 mg Documented by: Haloperidol (Haloperidol 5 Mg Tab) 5 mg PO Q4 PRN PRN Reason: Agitation Stop: 12/03/19 03:59 Haloperidol (Haloperidol 5 Mg Tab) 5 mg PO HS FANNY Stop: 12/03/19 21:59 Last Admin: 11/04/19 20:27 Dose: 5 mg Documented by: Hydroxyzine HCl (Hydroxyzine Hcl 25 Mg Tab) 50 mg PO HSZ PRN PRN Reason: Insomnia or Anxiety Stop: 12/03/19 02:46 Hydroxyzine HCl (Hydroxyzine Hcl 25 Mg Tab) 25 mg PO Q4H PRN PRN Reason: Anxiety Stop: 12/03/19 02:46 Lorazepam (Lorazepam 1 Mg Tab) 2 mg PO Q4 PRN PRN Reason: Agitation Stop: 12/03/19 02:49 Magnesium Hydroxide (Magnesium Hydroxide Susp 30 Ml Udc) 30 ml PO DAILY PRN PRN Reason: Constipation Stop: 12/03/19 02:46 Melatonin (Melatonin 3 Mg Tab) 3 mg PO HS PRN PRN Reason: Sleep Stop: 12/03/19 09:31 Olanzapine (Olanzapine Zydis 10 Mg Orally Dis. Tab) 10 mg PO BID FANNY Stop: 12/05/19 08:59 Last Admin: 11/04/19 20:27 Dose: 10 mg Documented by: Sodium Chloride (Sodium Chloride 0.65% Na Soln 45 Ml ([place])) 1 - 2 sprays NA PRN PRN PRN Reason: Nasal Dryness/Congestion Stop: 12/03/19 02:46 Mental Health & Subst Abuse Tx Psychiatrist Name of Psychiatrist: [facility] - Dr. Bassett Psychiatrist's Psychiatric Appointment Comment: [address] [place] [address], [address], [place] Therapist Name of Therapist: . Bracelet Form Coverer Name of Bracelet Form Coverer: Santino Polanco Phone Number for Bracelet Form Coverer: [phone] Post Discharge Appointments Partial or Psych Rehab Name of Partial or Psych Rehab: [facility] - Deepika Schuster Phone Number of Partial or Psych Rehab: [phone] Contact Information Discharge Discharge Address: [address] [place] [address]
[2019-11-05] MEDS ORDERED: COUGH DROP (SUGAR FREE) LOZ 24 LOZ/1 BOX BUCCAL PRN (10:50)
[2019-11-05] MEDS: PSEUDOEPHEDRINE HCL 30 MG TAB PO PRN (12:00)
[2019-11-05] MEDS: OLANZAPINE ZYDIS 5 MG ORALLY DIS. TAB PO SCH ×2 (13:21→20:13)
[2019-11-06] MEDS: PSEUDOEPHEDRINE HCL 30 MG TAB PO PRN (08:11)
[2019-11-06] MEDS: OLANZAPINE ZYDIS 5 MG ORALLY DIS. TAB PO SCH ×2 (08:11→21:11)
[2019-11-06] MEDS: cloNIDine HCL 0.1 MG TAB PO SCH ×2 (08:11→21:11)
[2019-11-06] MEDS ORDERED: OLANZAPINE ZYDIS 5 MG ORALLY DIS. TAB PO SCH (09:00)
[2019-11-06] MEDS ORDERED: NICOTINE POLACRILEX 2 MG GUM MT PRN (09:23)
[2019-11-06] MEDS: NICOTINE 14 MG/24 HR PATCH TD SCH (11:28)
--- NOTE | 2019-11-06 12:08 | Psychiatric Progress Note ---
Date of Service November 06, 2019 Impression / Recommendations Impression 19-year-old male who lives with a family friend, James, whom he refers to as his grandfather, has a history of schizophrenia, cluster B personality disorder, mood disorder with anger outbursts, substance abuse, and autism spectrum disorder, numerous previous inpatient hospitalizations, and longstanding treatment noncompliance who presented with police after he smashed a speaker over his head, and attempted to cut his throat with a knife the day prior. He is admitted on a 302 with petition from James stating he has been increasingly aggressive, noncompliant with medications, engaging in self injury, has been depressed, angry, and suicidal. The patient was agitated and aggressive in the ER, requiring physical and chemical restraints. He was uncooperative with the admission assessment. I will file for 303 hearing to be held tomorrow, as his commitment expires on Thursday which is a holiday, and recommend medications over objection. Inpatient treatment is medically necessary due to the severity of his symptoms and risk for harm to both himself and others if discharged. He would benefit from a long-acting injectable antipsychotic. Arrangements for a trimming caser have been made and his new trimming caser, Mr. Chatman, has been introduced to the patient. The 303 petition for continued hospitalization was granted and the hearing today, and although the patient had been quite agitated during the hearing he seemed to have calm down when the testimony cited our observation that he was having substantial difficulty regulating his mood in the face of relatively minor stimuli, whether positive or negative. When it was determined that he would be retained at the hospital, the patient smiled and said that he wanted to work with us to "get better," and hope that he could be discharged "as soon as possible." Ideally, the patient will be placed on a long-term injectable psychiatric medication. He received a stat dose of Zyprexa 10 mg this morning because of agitation, and the patient seems to responded quite well to it and even made a point several times to say that he liked the medication and that he would continue to take it because he feels that it helps. Accordingly, it may be somewhat difficult to convince him to an oral medication that can be converted to an injectable medication, such as aripiprazole or paliperidone. A second opinion regarding the need for medications over objection has been provided by the undersigned, but apart from Too the patient full except recently says that he does not want to take--finding a short acting medication that can be given over objection before converting to a long- acting medication is the issue. Accordingly, we may end up continuing Zyprexa with the patient's favorable response and his personal endorsement during the stay and at discharge. 11/05 minimal improvement (1) Suicidal ideation: 11/02 -continue involuntary hospitalization, suicide checks for safety. -He will need a family meeting with James once he is in better behavioral control, to review standard safety recommendations including ensuring no access to weapons or medications in the home, and review of a discharge safety plan. 11/03 -Today, the patient reports that he is not having thoughts of suicide, but he also says that he has had difficulty regaining self possession when irritated or frightened or frustrated. As recently as yesterday, this difficulty regaining self possession has led to dangerous behaviors; such as breaking solid objects over his head, banging his head, or attempting to cut himself with sharp objects, and the nature and degree these volitional behaviors represent a substantial and eminent risk of serious morbidity or mortality if not successfully treated. 11/05 reviewed, continues to deny SI (2) Schizophrenia: 11/02 -history of schizophrenia noted in records, has been on multiple antipsychotics and reportedly did well on clozapine, but was nonadherent. Most recently was on quetiapine prescribed by Dr. Deshpande, but indicated he had not been taking it for several months. A more potent antipsychotic is indicated for acute stabilization, and as he responded well to haloperidol in the past and on presentation in the ER, I will order 5 mg at bedtime to start. -He would benefit from a long-acting injectable antipsychotic and will work towards that during this hospitalization. Fasting labs ordered tomorrow for monitoring on an antipsychotic. -Recommend ongoing involuntary inpatient treatment, and will file for 303 hearing to be held tomorrow, as his commitment expires 11/07/2019 which is a holiday. -Recommend medications over objection, as he has a clear history of severe mental illness with repeated serious attempts to harm himself in the setting of medication noncompliance. His symptoms are unlikely to improve without medication, and he has demonstrated improvement when on psychotropic medications in the past. Dr. Mcgee will see him tomorrow for a second opinion. -Coordinate care with outpatient clinicians (Cory Schuster at [facility] and Dr. Bassett), unclear if he has a blended trimming caser but would benefit from one. Consider a [address] [place] [address]. 11/03 -Second opinion for medication over objection completed by Dr. Mcgee today. (See supplemental note) -With a great deal of encouragement and explanations from Dr. Mcgee and staff the patient did agree to take Zyprexa Zydis 10 mg by mouth voluntarily. Approximately 30 or 40 minutes later he approached us to say that he feels that the medication had been helpful and that he was feeling "better." Later in the morning, the patient said that he had again started to a little anxious, and given the fact that he had responded favorably and without any noted adverse effects to Zyprexa 10 mg p.o., we gave him a second dose of Zyprexa Zydis 10 mg by mouth. The patient reported that he "likes" Zyprexa Zydis because it "calm his [him] down," and allows him to think "more slowly." He also spontaneously explained that he felt that Zyprexa was helping him to be far less emotionally irritable, and that he understood that that was 1 of the major goals of the current hospitalization. -It is agreed that given the patient's long history of nonadherence the ideal medication would be one that could be given as a long-acting injectable. Duane berry, at this point, the patient is saying that he does not want any medication other than Zyprexa, and that he absolutely would not consider ever voluntarily taking haloperidol. With the patient's condition improves and he regains behavioral control, it may be possible to convince the patient to try oral immediate release Invega, and then, if tolerated, switch to Invega Sustenna. However, it is anticipated that this will be a short stay with community reentry as soon as possible. 11/05--patient is tolerating BID dosing of Zyprexa, currently 5 mg am and 15 mg hs. He does state "I won't take this if makes me gain weight". Reviewed that could retry metformin as took as teen when on various trials. He declines, "you gave me that before just give me a weight loss pill, a stimulant". Again reviewed why stimulant is not appropriate. (3) Mood disorder: 11/02 -in the past has been diagnosed with rule out bipolar disorder versus depressive disorder, and his director of manufacturing operations notes he has appeared depressed lately. Patient not cooperative with assessment today, so we will continue to try to engage him. -Consider a trial of Depakote to target mood instability and anger outbursts. 11/02 -The patient does not meet standard criteria for bipolar 1 or 2, but the diagnosis of rapid cycling or atypical bipolar disorder must be considered. Zyprexa, alone, may prove to be effective in stabilizing the patient's mood. In addition to Depakote, other mood stabilizer such as lamotrigine may be an option. However, adherence with multiple psychiatric medications can reasonably be projected to be an issue in this case. 11/05--discussed with patient as some response to lithium in past but he declines and I do not feel he will comply with Depakote due to combined weight gain with Zyprexa. Will add Ativan TID for the anxiety component and has shown to have calming effect during previous hospitalizations. No ideal for longer term rx of benzo and reviewed that cannot combine with Etoh. He has been tried on multiple psychiatric medications, including klonopin. For now will RX 0.5 mg ativan am, 0.5 mg pm and 1 mg po qhs. He is well aware it is a controlled substance with risk of dependence. (4) Outbursts of anger: 11/02 -longstanding issue, likely related to ASD and personality traits. Continue private room and use of the ALMITA, excused from groups until under better behavioral control. 11/03 -see above. 11/05 continue clonidine to address the ADHD component, he declines the patch (5) Self-injurious behavior: 11/02 -work on healthy coping skills to use in place of self injury, consider Depakote as above. 11/03 -Zyprexa Zydis 10 mg twice a day as being started. The patient has received a combined dosage of 20 mg of Zyprexa Zydis today and is self reporting improvement. The treatment team is also noticing that the patient's behavior seems to have come under much better control and that he seems less impulsive, and less emotionally labile. (6) Autism spectrum disorder: (7) Noncompliance: 11/02 -recommend OROZCO and 304 IO. (8) Cluster B personality disorder: Risk Factors Assessment Male: Yes : Yes Do You Have Access To A Gun?: No Health Problems: No Mental Health Diagnoses: Yes Substance Use Disorders: Yes Previous Attempt: Yes Previous Psychiatric Hospitalization: Yes Smoker: Yes Protective Factors Assessment : No Responsible for Young Children: No Employed: No Stable Relationships: No Supportive Family: No Good Rapport with Provider: No Interval History Chief Complaint "I hate being like this--restless all the time, you don't know what I need, etc.". Review of Systems Sleep Information Total Hours of Sleep: 8.75 Sleep Comments: Pt on Q 15 minute checks. Meal Information Percent Meal Consumed - Breakfast: 100 Percent Meal Consumed - Lunch: 100 Percent Meal Consumed - Dinner: 100 Nutrition Comment: pt. ate his breakfast at 1100 Subjective Subjective Patient was seen & assessed and interval progress reviewed with nursing and social work. very short attention span, pacing, interrupting others, swearing. Was rude to grandmother on phone call (typical). States he doesn't like prns here for sleep as increase nightmares. Tolerating shift in Zyprexa. Remains on 303 commitment. Physical Exam Psychiatric Orientation: alert; + uncooperative Apperance: appropriately groomed Eye Contact: + poor eye contact Motor Behavior: no abnormal motor movements and + psychomotor agitation (hyperactivity) Speech: normal rate/rhythm/volume of speech (but hyperverbal, intrussive) Affect: + anxious affect Mood: + irritable mood Thought Process: + perseveration and + concrete thought process Thought Content: no delusions Suicidal Thoughts: denies suicidal thoughts Homicidal Thoughts: denies homicidal thoughts Hallucinations: no auditory hallucinations and no visual hallucinations Cognition: + attention not intact Insight: + poor insight Judgement: + poor judgement Vital Signs (Past 24 Hours) Last Vital Signs Temp 36.3 C L 11/06/19 06:29 Pulse 57 L 11/06/19 06:30 Resp 18 11/06/19 06:29 BP 123/75 11/06/19 06:30 Pulse Ox 96 11/03/19 03:41 Results & Data ([facility]) Current Inpatient Medications Current Inpatient Medications: Current Inpatient Medications Acetaminophen (Acetaminophen 325 Mg Tab) 650 mg PO Q4H PRN PRN Reason: Headache or Minor Fever Stop: 12/03/19 02:46 Al Hydrox/Mg Hydrox/Simethicone (Aluminum/Magnesium Susp 30 Ml Udc) 30 ml PO Q4H PRN PRN Reason: GI Upset Stop: 12/03/19 02:46 Benztropine Mesylate (Benztropine Mesylate 1 Mg Tab) 1 mg PO Q4 PRN PRN Reason: EPS SYMPTOMS Stop: 12/03/19 02:50 Bismuth Subsalicylate (Bismuth Subsalicylate Per Ml Omnicell Charge) 15 ml PO PRN PRN PRN Reason: Loose Stool Stop: 12/03/19 02:46 Clonidine HCl (Clonidine Hcl 0.1 Mg Tab) 0.1 mg PO BID [facility] Stop: 12/03/19 09:44 Last Admin: 11/06/19 08:11 Dose: 0.1 mg Documented by: Haloperidol (Haloperidol 5 Mg Tab) 5 mg PO Q4 PRN PRN Reason: Agitation Stop: 12/03/19 03:59 Lorazepam (Lorazepam 1 Mg Tab) 2 mg PO Q4 PRN PRN Reason: Agitation Stop: 12/03/19 02:49 Lorazepam (Lorazepam 0.5 Mg Tab) 0.5 mg PO BIDM [facility] Stop: 12/06/19 09:24 Lorazepam (Lorazepam 1 Mg Tab) 1 mg PO HS [facility] Stop: 12/06/19 21:59 Magnesium Hydroxide (Magnesium Hydroxide Susp 30 Ml Udc) 30 ml PO DAILY PRN PRN Reason: Constipation Stop: 12/03/19 02:46 Melatonin (Melatonin 3 Mg Tab) 9 mg PO HS [facility] Stop: 12/06/19 21:59 Menthol (Cough Drop (Sugar Free) Krupa 24 Krupa/1 Box) 1 krupa BUCCAL Q4 PRN PRN Reason: Sore Throat Stop: 12/05/19 10:49 Last Admin: 11/05/19 16:48 Dose: 1 krupa Documented by: Miscellaneous (Remove Nicoderm Patch) 1 ea N/A DAILY@[id number] [facility] Stop: 12/07/19 08:58 Nicotine (Nicotine 14 Mg/24 Hr Patch) 14 mg TD QAM [facility] Stop: 12/07/19 08:59 Last Admin: 11/06/19 11:28 Dose: 14 mg Documented by: Nicotine Polacrilex (Nicotine Polacrilex 2 Mg Gum) 1 piece MT PRN PRN PRN Reason: nicotine withdrawal Stop: 12/06/19 09:22 Olanzapine (Olanzapine Zydis 5 Mg Orally Dis. Tab) 15 mg PO HS FANNY Stop: 12/05/19 21:59 Last Admin: 11/05/19 20:13 Dose: 15 mg Documented by: Olanzapine (Olanzapine Zydis 5 Mg Orally Dis. Tab) 5 mg PO QAM FANNY Stop: 12/05/19 12:59 Last Admin: 11/06/19 08:11 Dose: 5 mg Documented by: Pseudoephedrine HCl (Pseudoephedrine Hcl 30 Mg Tab) 30 mg PO Q6H PRN PRN Reason: Congestion Stop: 12/05/19 10:49 Last Admin: 11/06/19 08:11 Dose: 30 mg Documented by: Sodium Chloride (Sodium Chloride 0.65% Na Soln 45 Ml ([place])) 1 - 2 sprays NA PRN PRN PRN Reason: Nasal Dryness/Congestion Stop: 12/03/19 02:46 Mental Health & Subst Abuse Tx Psychiatrist Name of Psychiatrist: [facility] - Dr. Bassett Psychiatrist's Psychiatric Appointment Comment: [address] [place] [address], [facility], [address], [place] Therapist Name of Therapist: . Plastic Card Grader Cardroom Name of Plastic Card Grader Cardroom: Santino Polanco Phone Number for Plastic Card Grader Cardroom: [phone] Post Discharge Appointments Partial or Psych Rehab Name of Partial or Psych Rehab: [facility] - Deepika Schuster Phone Number of Partial or Psych Rehab: [phone] Contact Information Discharge Discharge Address: [address] [place] [address]
[2019-11-06] MEDS: LORazepam 0.5 MG TAB PO SCH ×2 (12:27→17:08)
--- NOTE | 2019-11-06 19:13 | Progress Note ---
Date of Service November 06, 2019 Assessment & Plan Admission and Anticipated Discharge Date Admission Date: November 03, 2019 Subjective patient developed throat irritation yesterday from some post nasal drip which responded to lozenges. He was improved on interactions today and remained afebrile. Staff notified me this pm that developed cough and not observing unit precautions re: masking. He is physically active about the unit but generally not physically intrussive. Directed staff to have patient mask and/or stay in AL[facility]A pending COVID test.
[2019-11-06] MEDS: LORazepam 1 MG TAB PO PRN (19:18)
[2019-11-06 20:57] LABS: Influenza A virus by PCR Neg for Influ A (Neg); Influenza B virus by PCR Neg for Influ B (Neg)
[2019-11-06] MEDS: LORazepam 1 MG TAB PO SCH (21:14)
[2019-11-06] MEDS: MELATONIN 3 MG TAB PO SCH (21:14)
[2019-11-07] MEDS: LORazepam 0.5 MG TAB PO SCH ×2 (09:25→18:32)
[2019-11-07] MEDS: cloNIDine HCL 0.1 MG TAB PO SCH ×2 (09:25→20:16)
[2019-11-07] MEDS: OLANZAPINE ZYDIS 5 MG ORALLY DIS. TAB PO SCH ×2 (09:25→20:17)
[2019-11-07] MEDS: NICOTINE 14 MG/24 HR PATCH TD SCH (09:29)
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
[2019-11-07] MEDS: LORazepam 1 MG TAB PO PRN (16:29)
[2019-11-07] MEDS: LORazepam 1 MG TAB PO SCH (20:20)
[2019-11-07] MEDS: MELATONIN 3 MG TAB PO SCH (21:50)
[2019-11-08] MEDS: cloNIDine HCL 0.1 MG TAB PO SCH (09:29)
[2019-11-08] MEDS: OLANZAPINE ZYDIS 5 MG ORALLY DIS. TAB PO SCH (09:29)
[2019-11-08] MEDS: LORazepam 0.5 MG TAB PO SCH (09:29)
[2019-11-08] MEDS: NICOTINE 14 MG/24 HR PATCH TD SCH (09:33)
--- NOTE | 2019-11-08 14:24 | Discharge Summary ---
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 less emotionally labile. 11/07 -Patient's dose of olanzapine has been adjusted to olanzapine 5 mg in the morning and 15 mg at bedtime. The patient indicates that he is tolerating this well, notes good sleep, and relative freedom from excess sedation. -The admission was primarily precipitated by the fact the patient was engaging in intentional self-injurious behaviors such as breaking objects over his head or banging his head against the tree or threatening to cut his throat with a knife. There have been no instances of intentional self-injurious behaviors (6) Autism spectrum disorder: (7) Noncompliance: 11/02 -recommend OROZCO and 304 IO. (8) Cluster B personality disorder: 11/07 -Not a focus of treatment during a current hospitalization. Mental Health & Subst Abuse Tx Psychiatrist Name of Psychiatrist: [facility] - Dr. Bassett Psychiatrist's Date of Appointment with Psychiatrist: 11/14/19 Time of Appointment with Psychiatrist: 12:20 p.m. Psychiatric Appointment Comment: [address] [facility] [facility] [address], [address], [place] Psychiatrist Release of Information: Obtained, Reviewed and Signed Therapist Name of Therapist: . Scale Clerk Name of Scale Clerk: Santino Polanco Phone Number for Scale Clerk: [phone] Case Management Appointment Comment: Will follow up with you to schedule Scale Clerk Release of Information: Obtained, Reviewed and Signed Post Discharge Appointments Partial or Psych Rehab Name of Partial or Psych Rehab: [facility] Dottie Schuster Phone Number of Partial or Psych Rehab: [phone] Date of Appointment at Partial or Psych Rehab: 11/08/19 Partial or Psych Rehab Appointment Comment: Will connect with Richie to schedule appt for this afternoon Release of Information for Partial or Psych Rehab: Obtained, Reviewed and Signed Smoking Cessation Counseling Tobacco Cessation Medication Prescribed at Discharge: Offered & Pt Refused Contact Information Discharge Discharge Address: [address] [place] [id number] Discharge Plan Discharge Items Patient Disposition: Home - Self-Care Reason For Visit: UNSPECIFIED MOOD D/O Discharge Diagnosis: Unspecified Mood Disorder Activity: Resume your previous activity Non-emergency contact: Primary Care Provider, Psychiatrist, Therapist and Flight Coordinator Call non-emergency contact if: you have any medication questions and your symptoms worsen Follow-up/Referrals: Qing Marquez MD [Primary Care Provider] - Diet: Regular Addtl Attending Provider Instructions: SPECIAL CARE INSTRUCTIONS: 1. Follow through with your scheduled aftercare appointments. If unable to keep an appointment, please call to reschedule. 2. Take your medication only as prescribed. Medication should not be changed or stopped without the approval of your doctor. In the event of worsening symptoms or concerns about side effects, contact your doctor immediately. 3. Utilize new healthy coping skills, anger management skills, and stress management skills learned during your hospitalization. Journal feelings and process them with a support person. Identify stressors or situations that may result in relapse, deterioration or inappropriate behaviors and develop a plan to deal with those issues. 4. If your coping skills are ineffective and you are in crisis, contact your outpatient providers for direction. If unable to reach your providers, please call the [facility] CRISIS LINE AT , go to the [facility] walk-in center at [address] [facility], [address], [place], or go to the closest Emergency Room. 5. Avoid alcohol and un-prescribed drugs. 6. You have been provided with the Mental Health Advance Directives Pamphlet for your review. AFTERCARE APPOINTMENTS: * Please call your insurance company prior to your scheduled appointment to confirm your aftercare providers are covered. Take your insurance information to your appointments. WHO TO CALL AND WHEN: Medical Emergencies: For questions or emergencies related to your hospital stay, please contact the Inpatient Behavioral Health Unit at [phone]. A geothermal heat pump machinist is on-call 22/09 for the Behavioral Health Unit for emergencies At any time you feel your situation is an emergency, you may also call 911 immediately. Pending Studies at Discharge: No Stand-Alone Forms: My [facility], Smoking Cessation, Suicide P revention Resources Medications and DC Order Prescriptions: New melatonin 3 mg Tablet 9 mg PO HS Qty: 90 RF: 0 olanzapine 5 mg Tablet,Disintegrating 5 mg PO QAM Qty: 30 RF: 0 olanzapine 5 mg Tablet,Disintegrating 15 mg PO HS Qty: 60 RF: 0 lorazepam 0.5 mg tablet 0.5 mg PO BID Qty: 30 RF: 1 lorazepam 0.5 mg tablet 1 mg PO DAILY MDD 30 Qty: 30 RF: 1 Continued clonidine HCl 0.1 mg tablet 0.1 mg PO HS RF: 0 Discontinued amitriptyline 50 mg tablet 50 mg PO HS RF: 0 quetiapine 300 mg tablet 300 mg PO HS RF: 0 hydroxyzine HCl 50 mg tablet 50 mg PO HS PRN (Reason: Agitation) RF: 0 melatonin 3 mg Tablet 3 mg PO HS PRN (Reason: Sleep) RF: 0 Discharge Orders: Discharge Order (Routine); Ordered 11/08/19 Ordered By: Will Mcgee Admission Data Admit Date/Time: 11/03/19 02:11 Attending Provider: Winnie Pollard Admit Provider: Bryn Stiles Primary Care Provider: Qing Marquez Other Interventions: Discharge Summary Assessment (RN) Last Done: 11/08/19 12:04 PSY Interdisciplinary Discharge Planning Last Done: 11/08/19 12:06 [place] [address] D/C day mgmt > 30 min Patient Type Established History Expanded Problem Focused Exam Expanded Problem Focused Medical Decision Making Moderate Complexity Diagnoses Suicidal ideation R45.851 Schizophrenia F20.9 Mood disorder F39 Outbursts of anger R45.4 Self-injurious behavior Z72.89 Autism spectrum disorder F84.0 Noncompliance Z91.19 Cluster B personality disorder F60.9 Time Spent (min) 60
== END 2019-11-08 14:33 | disposition home or self-care (01) | DRG 885 ==
LOC: ED 19:26 → 3S 11-03 01:59

== ENCOUNTER 2019-12-09 18:17 | Inpatient (IN) ==
[2019-12-09] MEDS ORDERED: LORazepam 1 MG TAB PO STA (18:36)
[2019-12-09 18:54] LABS: Appearance Urine Clear (Clear); Bacteria Urine Automated Negative (Negative); Bilirubin Urine Negative (Negative); Blood Urine Negative (Negative); Color Urine Yellow; Epithelial Cell Urine Auto 0-5 /lpf (0-5); Glucose Urine UA Negative (Negative); Ketones Urine Trace (Negative); Leukocyte Esterase Urine Negative (Negative); Nitrite Urine Negative (Negative); Protein Urine 1+ (Negative); RBC Urine Automated 0-4 /hpf (0-4); Specific Gravity Urine 1.024 (1.000-1.030); Urobilinogen Urine Negative (Negative); WBC Urine Automated 0 /hpf (0-5)
--- NOTE | 2019-12-09 19:01 | Emergency Department Note ---
History of Present Illness General Chief complaint: Mental Health Evaluation Stated complaint: 302 Time Seen by Provider: 12/09/19 18:22 Source: patient, RN notes reviewed, old records reviewed and police Mode of arrival: other (police) Limitations: patient cooperation and intoxication History of Present Illness Provider complaint: Hearing voices, threw self in traffic Onset (ago): hour(s) less than 1 Current Pain Intensity: 0 Treatments prior to arrival: other (alcohol) This is a 19-year-old male who presents emergency department complaining of throwing himself in traffic. The patient is brought in by police under 302 warrant. The patient reports he has been hearing voices. He cannot understand what they are saying. To self medicate for the voices he has been drinking alcohol. He reports no improvement in the voices. He tried to throw himself into traffic however the car he threw himself in front of stopped. He reports no injury from this event. Of note the patient reports he does not wish to go to [facility]. He reports at one point they gave him Haldol which he is not supposed to have. He is requesting a turkey sandwich here. Home Medications Home Medications Medication Instructions Recorded Confirmed Type clonidine HCl 0.1 mg PO HS 04/18/19 12/09/19 History lorazepam 0.5 mg PO BID #30 tab 11/08/19 12/09/19 Rx lorazepam 1 mg PO DAILY #30 tab MDD 30 11/08/19 12/09/19 Rx melatonin 9 mg PO HS #90 tab 11/08/19 12/09/19 Rx olanzapine 5 mg PO QAM #30 tab 11/08/19 12/09/19 Rx olanzapine 15 mg PO HS #60 tab 11/08/19 12/09/19 Rx hydroxyzine HCl 50 mg PO DAILY 12/09/19 12/09/19 History melatonin 25 mg PO HS 12/09/19 12/09/19 History quetiapine [Seroquel] 300 mg PO HS 12/09/19 12/09/19 History Allergies Allergy/AdvReac Type Severity Reaction Status Date / Time Penicillins Allergy Intermediate HIVES Verified 12/09/19 19:14 Past Med/Surg History Medical History Autism spectrum disorder Cannabis abuse Cluster B personality disorder Noncompliance Outbursts of anger Self-injurious behavior Suicidal ideation Surgical History No pertinent past surgical history Family History Mother Bipolar disorder Uncle Drug addiction Social History Smoking Status: Current every day smoker Tobacco Type: Cigarettes Preferred Language: Sami Communication Ability: Effective Visual Impairment: No Limitations Hearing Ability: Normal Medical Professionals Required: No Beliefs That Will Affect Care: None Current Living Situation: Family Feels Safe at Home: Yes Assistive Devices: None Review of Systems A total of 10 systems reviewed and were otherwise negative Physical Exam Vital Signs Vital Signs - 24 hr 12/09/19 20:20 12/10/19 03:20 12/10/19 11:54 Pulse Rate [Right Finger] 72 66 68 Respiratory Rate 20 20 20 Respiratory Effort / Characteristics Non-Labored Non-Labored Spontaneous Non-Labored Spontaneous Respiratory Depth Normal Normal Normal Respiratory Pattern Regular Regular Blood Pressure [Right Arm] 147/83 H 149/80 H 119/93 Blood Pressure Mean [Right Arm] 104 103 101 Blood Pressure Position [Right Arm] Lying Pulse Oximetry 97 98 97 Oxygen Delivery Method Room Air Room Air VITAL SIGNS - Vital signs and nursing notes were reviewed. GENERAL - 19-year-old male appearing stated age who is in no acute distress. Pressured speech, continues to interrupt. SKIN - Multiple scars b/l to forearms HEAD - NC/AT. EYES - PERRL with EOMI bilaterally. Sclera anicteric. Palpebral conjunctiva pin k and moist with no injection noted. EARS - No deformities of external structures noted on gross examination bilaterally. No pain elicited with palpation of the tragus bilaterally. External auditory canals without discharge or otorrhea. Tympanic membranes pearly davis without retraction or bulging. No fluid or purulent material visualized behind the TM. Handle of malleus, umbo, cone of light, pars tensa/flaccid all easily visualized. NOSE - Midline and without cyanosis. No epistaxis or purulent drainage noted. Septum midline without deviation or septal hematoma noted. MOUTH/OROPHARYNX - Without perioral cyanosis. Buccal mucosa pink and moist and without leukoplakia. Tongue midline with equal elevation of palate bilaterally. No tonsillar hypertrophy, erythema, or exudates noted. dentition noted. NECK - Neck with FROM. Supple to palpation. lymphadenopathy noted. No nuchal rigidity. LUNGS - Chest wall symmetric without accessory muscle use, intercostals retractions, or central cyanosis. Normal vesicular breath sounds CTA B/L. No wheezes, rales, or rhonchi appreciated. CARDIAC - RRR with S1/S2. No murmur, rubs, or gallops appreciated. ABDOMEN - Abdominal contour without pulsations or visible masses. BS normoactive all four quadrants. No tenderness, palpable masses, hepatosp lenomegaly, or ascites noted. EXTREMITIES - No clubbing or peripheral cyanosis. No pretibial edema present. +3/5 radial, posterior tibial, and dorsalis pedis pulses palpated throughout. +5/5 strength noted in UE/LE bilaterally. NEUROLOGIC - Cranial nerves II through XII grossly intact. Sensory intact to light touch throughout. Patellar reflexes +2/4. PSYCH - A&Ox3 and cooperates fully with examiner. Pt is very pleasant and interacts well with examiner. Course Administered Medications Nicotine (Nicotine 21 Mg/24 Hr Tdsy) 21 mg TD QAM FANNY Stop: 01/09/20 17:29 Last Admin: 12/10/19 17:51 Dose: 21 mg Documented by: [id number] Discontinued Medications Lorazepam (Lorazepam 1 Mg Tab) 2 mg PO NOW STA Stop: 12/09/19 18:37 Last Admin: 12/09/19 18:45 Dose: 2 mg Documented by: [id number] Lorazepam (Lorazepam 1 Mg Tab) 2 mg PO NOW STA Stop: 12/10/19 03:14 Last Admin: 12/10/19 03:20 Dose: 2 mg Documented by: [id number] Lorazepam (Lorazepam 1 Mg Tab) 1 mg PO NOW STA Stop: 12/10/19 12:37 Last Admin: 12/10/19 12:41 Dose: 1 mg Documented by: [id number] Lorazepam (Lorazepam 1 Mg Tab) 1 mg PO NOW STA Stop: 12/10/19 13:58 Last Admin: 12/10/19 14:23 Dose: 1 mg Documented by: [id number] Lorazepam (Lorazepam 1 Mg Tab) 2 mg SL NOW STA Stop: 12/10/19 17:21 Last Admin: 12/10/19 17:51 Dose: 2 mg Documented by: [id number] Medical Decision Making Differential Diagnosis Mood disorder, infection, hypoglycemia, electrolyte abnormalities, cardiac sources, intracerebral event, toxicologic, trauma, neurologic, as well as other pathologies. Medical Records Attestation: I reviewed the patient's medical records. Home Medications Current Medication List: was personally reviewed by me Laboratory Data Attestation: I reviewed the patient's lab results. Result diagrams: 12/09/19 18:57 12/09/19 18:57 Lab Results 12/09/19 12/09/19 12/09/19 Range/Units 18:27 18:27 18:57 WBC 6.66 (4.8-10.8) K/uL RBC 5.14 (4.7-6.1) M/uL Hgb 16.1 (14.0-18.0) g/dL Hct 46.0 (42-52) % MCV 89.5 (80-100) fL MCH 31.3 (25-34) pg MCHC 35.0 (32-36) g/dL RDW Std Deviation 40.9 (36.4-46.3) fL RDW Coeff of Efrem 12.5 (11.5-14.5) % Plt Count 292 (130-400) K/uL MPV 8.7 (7.4-10.4) fL Immature Gran % (Auto) 0.2 % Neut % (Auto) 59.5 % Lymph % (Auto) 33.2 % [place] % (Auto) 6.0 % Eos % (Auto) 0.6 % Baso % (Auto) 0.5 % Neut # (Auto) 3.97 (1.4-6.5) K/uL Lymph # (Auto) 2.21 (1.2-3.4) K/uL [place] # (Auto) 0.40 (0.11-0.59) K/uL Eos # (Auto) 0.04 (0-0.5) K/uL Baso # (Auto) 0.03 (0-0.2) K/uL Immature Gran # (Auto) 0.01 (0.00-0.02) K/uL Sodium (136-145) mmol/L Potassium (3.5-5.1) mmol/L Chloride (98-107) mmol/L Carbon Dioxide (21-32) mmol/L Anion Gap (3-11) BUN (7-18) mg/dl Creatinine (0.6-1.4) mg/dl Est Cr Clr Drug Dosing Est GFR ( Amer) Est GFR (Non-Af Amer) BUN/Creatinine Ratio (10-20) Glucose (70-99) mg/dl Calcium (8.5-10.1) mg/dl Total Bilirubin (0.2-1) mg/dl AST (15-37) U/L ALT (12-78) U/L Alkaline Phosphatase (45-117) U/L Total Protein (6.4-8.2) gm/dl Albumin (3.4-5.0) gm/dl Globulin (2.5-4.0) gm/dl Albumin/Globulin Ratio (0.9-2) TSH (0.300-4.500) uIu/ml Urine Color Yellow Urine Appearance Clear (Clear) Urine pH 6.0 (4.5-7.5) Ur Specific [place] 1.024 (1.000-1.030) Urine Protein 1+ H (Negative) Urine Glucose (UA) Negative (Negative) Urine Ketones Trace H (Negative) Urine Blood Negative (Negative) Urine Nitrite Negative (Negative) Urine Bilirubin Negative (Negative) Urine Urobilinogen Negative (Negative) Ur Leukocyte Esterase Negative (Negative) Urine WBC (Auto) 0 (0-5) /hpf Urine RBC (Auto) 0-4 (0-4) /hpf U Hyaline Cast (Auto) 1-5 (0-5) /lpf U Epithel Cells (Auto) 0-5 (0-5) /lpf Urine Bacteria (Auto) Negative (Negative) Salicylates (2.8-20) mg/dl Urine Opiates Screen Neg (Neg) Ur Methadone, Qual Neg (Neg) Acetaminophen (10-30) ug/ml Urine Barbiturates Neg (Neg) Ur Phencyclidine (PCP) Neg (Neg) U Amphetamin/Meth Scrn Neg (Neg) MDMA (Ecstasy) Screen Neg (Neg) U Benzodiazepines Scrn Neg (Neg) Ur Cocaine Metabolite Neg (Neg) U Marijuana (THC) Screen Neg (Neg) Ethyl Alcohol mg/dL (0-3) mg/dl COVID-19 Eval Order COVID-19 PCR (Negative) 12/09/19 12/09/19 12/09/19 Range/Units 18:57 18:57 18:57 WBC (4.8-10.8) K/uL RBC (4.7-6.1) M/uL Hgb (14.0-18.0) g/dL Hct (42-52) % MCV (80-100) fL MCH (25-34) pg MCHC (32-36) g/dL RDW Std Deviation (36.4-46.3) fL RDW Coeff of Efrem (11.5-14.5) % Plt Count (130-400) K/uL MPV (7.4-10.4) fL Immature Gran % (Auto) % Neut % (Auto) % Lymph % (Auto) % [place] % (Auto) % Eos % (Auto) % Baso % (Auto) % Neut # (Auto) (1.4-6.5) K/uL Lymph # (Auto) (1.2-3.4) K/uL [place] # (Auto) (0.11-0.59) K/uL Eos # (Auto) (0-0.5) K/uL Baso # (Auto) (0-0.2) K/uL Immature Gran # (Auto) (0.00-0.02) K/uL Sodium 139 (136-145) mmol/L Potassium 3.8 (3.5-5.1) mmol/L Chloride 108 H (98-107) mmol/L Carbon Dioxide 25 (21-32) mmol/L Anion Gap 6.0 (3-11) BUN 11 (7-18) mg/dl Creatinine 0.79 (0.6-1.4) mg/dl Est Cr Clr Drug Dosing Not Reportable Est GFR ( Amer) 149.8 Est GFR (Non-Af Amer) 129.3 BUN/Creatinine Ratio 13.4 (10-20) Glucose 83 (70-99) mg/dl Calcium 9.6 (8.5-10.1) mg/dl Total Bilirubin 0.4 (0.2-1) mg/dl AST 25 (15-37) U/L ALT 31 (12-78) U/L Alkaline Phosphatase 74 (45-117) U/L Total Protein 7.5 (6.4-8.2) gm/dl Albumin 3.8 (3.4-5.0) gm/dl Globulin 3.7 (2.5-4.0) gm/dl Albumin/Globulin Ratio 1.0 (0.9-2) TSH 0.441 (0.300-4.500) uIu/ml Urine Color Urine Appearance (Clear) Urine pH (4.5-7.5) Ur Specific [place] (1.000-1.030) Urine Protein (Negative) Urine Glucose (UA) (Negative) Urine Ketones (Negative) Urine Blood (Negative) Urine Nitrite (Negative) Urine Bilirubin (Negative) Urine Urobilinogen (Negative) Ur Leukocyte Esterase (Negative) Urine WBC (Auto) (0-5) /hpf Urine RBC (Auto) (0-4) /hpf U Hyaline Cast (Auto) (0-5) /lpf U Epithel Cells (Auto) (0-5) /lpf Urine Bacteria (Auto) (Negative) Salicylates 1.8 L (2.8-20) mg/dl Urine Opiates Screen (Neg) Ur Methadone, Qual (Neg) Acetaminophen < 2 L (10-30) ug/ml Urine Barbiturates (Neg) Ur Phencyclidine (PCP) (Neg) U Amphetamin/Meth Scrn (Neg) MDMA (Ecstasy) Screen (Neg) U Benzodiazepines Scrn (Neg) Ur Cocaine Metabolite (Neg) U Marijuana (THC) Screen (Neg) Ethyl Alcohol mg/dL 125.0 H (0-3) mg/dl COVID-19 Eval Order COVID-19 PCR (Negative) 12/09/19 12/09/19 Range/Units 22:55 22:55 WBC (4.8-10.8) K/uL RBC (4.7-6.1) M/uL Hgb (14.0-18.0) g/dL Hct (42-52) % MCV (80-100) fL MCH (25-34) pg MCHC (32-36) g/dL RDW Std Deviation (36.4-46.3) fL RDW Coeff of Efrem (11.5-14.5) % Plt Count (130-400) K/uL MPV (7.4-10.4) fL Immature Gran % (Auto) % Neut % (Auto) % Lymph % (Auto) % [place] % (Auto) % Eos % (Auto) % Baso % (Auto) % Neut # (Auto) (1.4-6.5) K/uL Lymph # (Auto) (1.2-3.4) K/uL [place] # (Auto) (0.11-0.59) K/uL Eos # (Auto) (0-0.5) K/uL Baso # (Auto) (0-0.2) K/uL Immature Gran # (Auto) (0.00-0.02) K/uL Sodium (136-145) mmol/L Potassium (3.5-5.1) mmol/L Chloride (98-107) mmol/L Carbon Dioxide (21-32) mmol/L Anion Gap (3-11) BUN (7-18) mg/dl Creatinine (0.6-1.4) mg/dl Est Cr Clr Drug Dosing Est GFR ( Amer) Est GFR (Non-Af Amer) BUN/Creatinine Ratio (10-20) Glucose (70-99) mg/dl Calcium (8.5-10.1) mg/dl Total Bilirubin (0.2-1) mg/dl AST (15-37) U/L ALT (12-78) U/L Alkaline Phosphatase (45-117) U/L Total Protein (6.4-8.2) gm/dl Albumin (3.4-5.0) gm/dl Globulin (2.5-4.0) gm/dl Albumin/Globulin Ratio (0.9-2) TSH (0.300-4.500) uIu/ml Urine Color Urine Appearance (Clear) Urine pH (4.5-7.5) Ur Specific [place] (1.000-1.030) Urine Protein (Negative) Urine Glucose (UA) (Negative) Urine Ketones (Negative) Urine Blood (Negative) Urine Nitrite (Negative) Urine Bilirubin (Negative) Urine Urobilinogen (Negative) Ur Leukocyte Esterase (Negative) Urine WBC (Auto) (0-5) /hpf Urine RBC (Auto) (0-4) /hpf U Hyaline Cast (Auto) (0-5) /lpf U Epithel Cells (Auto) (0-5) /lpf Urine Bacteria (Auto) (Negative) Salicylates (2.8-20) mg/dl Urine Opiates Screen (Neg) Ur Methadone, Qual (Neg) Acetaminophen (10-30) ug/ml Urine Barbiturates (Neg) Ur Phencyclidine (PCP) (Neg) U Amphetamin/Meth Scrn (Neg) MDMA (Ecstasy) Screen (Neg) U Benzodiazepines Scrn (Neg) Ur Cocaine Metabolite (Neg) U Marijuana (THC) Screen (Neg) Ethyl Alcohol mg/dL (0-3) mg/dl COVID-19 Eval Order Covid19 Done at [facility] COVID-19 PCR NEGATIVE (Negative) MDM Narrative Patient was seen and evaluated as above in room A8. Review was performed of nursing notes and vital signs. I did review pertinent previous visits and patient history. After obtaining a thorough history and physical examination the above work up was performed. This is a 19-year-old male with a history of personality disorder as well as autism that threw himself into traffic in a suicide gesture. He also reports drinking today. He was medically cleared by me after his alcohol level cleared. He was signed out to Dr Apodaca at change of shift. While in the department, I personally reevaluated the patient several times and each time the patient was found to be resting comfortably. The patient was educ ated upon management, educated upon todays findings/results, educated upon importance of follow up from today's visit, educated upon symptoms in which to return, had questions answered prior to discharge, verbalized understanding, and was discharged home in good condition. The patient was evaluated during the global COVID-19 pandemic, and that diagnosis was suspected/considered upon their initial presentation. Their evaluation, treatment and testing was consistent with current guidelines for patients who present with complaints or symptoms that may be related to COVID- 19. Impression & Plan Suicide gesture, Alcohol intoxication Discharge Plan Visit Data Chief Complaint: Mental Health Evaluation Stated Complaint: 302 ED Provider: Rao Easton Discharge Problem: Suicide gesture, Alcohol intoxication Forms Stand Alone Forms: My [facility], Suicide Prevention Resources Prescriptions Prescriptions: No Action clonidine HCl 0.1 mg tablet 0.1 mg PO HS RF: 0 melatonin 3 mg Tablet 9 mg PO HS Qty: 90 RF: 0 olanzapine 5 mg Tablet,Disintegrating 5 mg PO QAM Qty: 30 RF: 0 olanzapine 5 mg Tablet,Disintegrating 15 mg PO HS Qty: 60 RF: 0 lorazepam 0.5 mg tablet 0.5 mg PO BID Qty: 30 RF: 1 lorazepam 0.5 mg tablet 1 mg PO DAILY MDD 30 Qty: 30 RF: 1 quetiapine [Seroquel] 300 mg tablet 300 mg PO HS RF: 0 hydroxyzine HCl 50 mg tablet 50 mg PO DAILY RF: 0 melatonin 5 mg Tablet 25 mg PO HS RF: 0 Discharge Problem: Suicide gesture Qualifiers: Encounter type: initial encounter Qualified Code(s): X83.8XXA - Intentional self-harm by other specified means, initial encounter Alcohol intoxication Qualifiers: Complication of substance-induced condition: uncomplicated Qualified Code(s): F10.920 - Alcohol use, unspecified with intoxication, uncomplicated
[2019-12-09 19:10] LABS: Basophils # (auto) 0.03 K/uL (0-0.2); Basophils % (auto) 0.5 %; Eosinophils # (auto) 0.04 K/uL (0-0.5); Eosinophils % (auto) 0.6 %; Hemoglobin 16.1 g/dL (14.0-18.0); Immature Granulocytes # (auto) 0.01 K/uL (0.00-0.02); Immature Granulocytes % (auto) 0.2 %; Lymphocytes # (auto) 2.21 K/uL (1.2-3.4); Lymphocytes % (auto) 33.2 %; Mean Corpuscular Hemoglobin 31.3 pg (25-34); Mean Corpuscular Volume 89.5 fL (80-100); Mean Platelet Volume 8.7 fL (7.4-10.4); Neutrophils # (auto) 3.97 K/uL (1.4-6.5); Neutrophils % (auto) 59.5 %; Platelet Count 292 K/uL (130-400); RDW Coefficient of Variation 12.5 % (11.5-14.5); RDW Standard Deviation 40.9 fL (36.4-46.3); Red Blood Count 5.14 M/uL (4.7-6.1); White Blood Count 6.66 K/uL (4.8-10.8)
[2019-12-09 19:12] LABS: Barbiturates, Urine Neg (Neg)
[2019-12-09 19:29] LABS: Alanine Aminotransferase 31 U/L (12-78); Albumin Level 3.8 gm/dl (3.4-5.0); Aspartate Aminotransferase 25 U/L (15-37); BUN Creatinine Ratio 13.4 (10-20); Blood Urea Nitrogen 11 mg/dl (7-18); Calcium 9.6 mg/dl (8.5-10.1); Carbon Dioxide 25 mmol/L (21-32); Chloride 108 mmol/L (98-107); Est GFR (African American) 149.8; Est GFR (Non-African American) 129.3; Glucose 83 mg/dl (70-99); Potassium 3.8 mmol/L (3.5-5.1); Sodium 139 mmol/L (136-145)
[2019-12-09 19:34] LABS: Acetaminophen < 2 ug/ml (10-30); Salicylate 1.8 mg/dl (2.8-20)
[2019-12-09 19:36] LABS: Amphetamines+Metham, Urine Neg (Neg); Benzodiazepine, Urine Neg (Neg); Cocaine, Urine Neg (Neg); MDMA (Ecstacy), Urine Neg (Neg); Methadone, Urine Neg (Neg); Opiate, Urine Neg (Neg); Phencyclidine, Urine Neg (Neg)
[2019-12-09 19:39] LABS: Alkaline Phosphatase 74 U/L (45-117); Bilirubin,Total 0.4 mg/dl (0.2-1); Globulin 3.7 gm/dl (2.5-4.0); Thyroid Stimulating Hormone 0.441 uIu/ml (0.300-4.500); Total Protein 7.5 gm/dl (6.4-8.2)
--- NOTE | 2019-12-10 01:02 | Emergency Department Note ---
ED Visit Note This case was signed out to me at change of shift awaiting bed placement. 0115: The patient is cooperative at this time. The bed search continues. 0315: The patient is requesting something to help him relax and sleep. He was given 2 mg of oral Ativan. 0640: The case was signed out to Dr. Alcaraz awaiting bed placement. . : Suicide gesture Qualifiers: Encounter type: initial encounter Qualified Code(s): X83.8XXA - Intentional self-harm by other specified means, initial encounter Alcohol intoxication Qualifiers: Complication of substance-induced condition: uncomplicated Qualified Code(s): F10.920 - Alcohol use, unspecified with intoxication, uncomplicated
[2019-12-10] MEDS ORDERED: LORazepam 1 MG TAB PO STA ×3 (03:13→13:57)
--- NOTE | 2019-12-10 06:49 | Emergency Department Note ---
ED Visit Note 0649: Signout from Dr. Apodaca. 19-year-old male who is intoxicated with alcohol who presented for suicidal gesture/ideation after trying to throw himself into traffic last night. Patient medically cleared vital signs stable. Awaiting psychiatric placement. 1504: Vital signs stable. Awaiting psychiatric placement. Case signed out to Dr. chen. . : Suicide gesture Qualifiers: Encounter type: initial encounter Qualified Code(s): X83.8XXA - Intentional self-harm by other specified means, initial encounter Alcohol intoxication Qualifiers: Complication of substance-induced condition: uncomplicated Qualified Code(s): F10.920 - Alcohol use, unspecified with intoxication, uncomplicated
--- NOTE | 2019-12-10 15:05 | Emergency Department Note ---
ED Visit Note The patient was taken in signout from Dr. Alcaraz at the change of shift. The patient seen initially by Dr. Easton. Please see that note for details. The patient was pending inpatient psychiatric placement for suicidal ideation with attempt at self-harm by being found lying in the road last night. The patient did present intoxicated with alcohol of 125. After ED observation it was determined the patient is medically cleared. 302 has been signed. Placement pending. Patient signed out to Dr. Easton. . : Suicide gesture Qualifiers: Encounter type: initial encounter Qualified Code(s): X83.8XXA - Intentional self-harm by other specified means, initial encounter Alcohol intoxication Qualifiers: Complication of substance-induced condition: uncomplicated Qualified Code(s): F10.920 - Alcohol use, unspecified with intoxication, uncomplicated
[2019-12-10] MEDS ORDERED: NICOTINE POLACRILEX 2 MG GUM MT PRN (17:20)
[2019-12-10] MEDS ORDERED: LORazepam 1 MG TAB SL STA (17:20)
[2019-12-10] MEDS ORDERED: OLANZapine 5 MG TABLET PO STA (17:21)
--- NOTE | 2019-12-10 17:23 | Emergency Department Note ---
ED Visit Note Received patient in sign out. History and physical verified by me. At change of shift patient is angrily pacing hallway and wont respond to verbal deescalation. Demanding cigarettes. He is belligerent and angry and is a risk to other patients. Knowing this patient's past medical history as well as his criminal history he will need to be sedated further if he cannot control his actions. Security called to the bedside. The patient was offered oral medications however he refused these therefore he was given IM Zyprexa and IM Ativan. He continued to pace around the hallway without wearing a mask during a time of a pandemic without his shirt on. He is become an interference to the other patients and is risking a catastrophe. He eventually slept after the Zyprexa and ativan and was signed out to Dr Apodaca. . : Suicide gesture Qualifiers: Encounter type: initial encounter Qualified Code(s): X83.8XXA - Intentional self-harm by other specified means, initial encounter Alcohol intoxication Qualifiers: Complication of substance-induced condition: uncomplicated Qualified Code(s): F10.920 - Alcohol use, unspecified with intoxication, uncomplicated
[2019-12-10] MEDS ORDERED: NICOTINE 21 MG/24 HR TDSY TD SCH (17:30)
[2019-12-10] MEDS ORDERED: LORazepam 2 MG/ML VIAL (IM USE) IM STA (20:21)
[2019-12-10] MEDS ORDERED: OLANZapine 10 MG/2.1 ML SDV IM STA (20:21)
--- NOTE | 2019-12-11 05:24 | Emergency Department Note ---
ED Visit Note This case has been signed out to me awaiting bed placement. The patient has been sleeping throughout my shift. The patient will be evaluated by staff from 3 S. in the morning. The case will be signed out to Dr. Alcaraz at change of shift for bed placement. . : Suicide gesture Qualifiers: Encounter type: initial encounter Qualified Code(s): X83.8XXA - Intentional self-harm by other specified means, initial encounter Alcohol intoxication Qualifiers: Complication of substance-induced condition: uncomplicated Qualified Code(s): F10.920 - Alcohol use, unspecified with intoxication, uncomplicated
--- NOTE | 2019-12-11 07:45 | Emergency Department Note ---
ED Visit Note 0744: Signout from Dr. Apodaca. Vital signs stable. Patient medically cleared. Awaiting psychiatric evaluation/placement. 1100: Dr. Pollard psychiatry stated Erik's "grandfather" James, reported concerns about patient as he has been noncompliant with medications for at least 5 weeks, abusing drugs and alcohol, staying at a homeless senior care, and has upcoming court date for aggravated assault. James visited patient yesterday and Erik told him he was going to say whatever he needed to get out of "this shithole," and didn't care about anything. Given his high risk for self harm, I'd recommend a 302 and expanding the bed search to facilities more likely to be able to manage him, such as [facility], [facility]. Psychiatry states they might have a discharge on the floor available tomorrow and might be able to admit him to the floor tomorrow. 1417: Patient became agitated with staff and required restraints as well as Zyprexa IM, Haldol IM, Ativan IM. Patient required physical restraints also. 1453: Case signed out to Dr. chen . : Suicide gesture Qualifiers: Encounter type: initial encounter Qualified Code(s): X83.8XXA - Intentional self-harm by other specified means, initial encounter Alcohol intoxication Qualifiers: Complication of substance-induced condition: uncomplicated Qualified Code(s): F10.920 - Alcohol use, unspecified with intoxication, uncomplicated
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
[2019-12-11] MEDS ORDERED: LORazepam 2 MG/ML VIAL (IM USE) IM STA ×2 (11:45→19:19)
[2019-12-11] MEDS ORDERED: HALOPERIDOL LACTATE 5 MG/ML 1 ML VIAL IM STA (11:45)
[2019-12-11] MEDS ORDERED: diphenhydrAMINE 50 MG/ML VIAL IM STA (11:45)
[2019-12-11] MEDS ORDERED: ZIPRASIDONE 20 MG/ML SDV IM STA (12:55)
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
[2019-12-11] MEDS ORDERED: OLANZapine 10 MG/2.1 ML SDV IM STA (19:19)
--- NOTE | 2019-12-11 19:56 | Emergency Department Note ---
ED Visit Note Received patient in signout. At change of shift the patient is standing in the hallway without a shirt being belligerent. As we have a full mental health denis he is refusing commands to stay in his room he has become threatening to the nursing staff. For this reason he will be sedated again with Zyprexa and Ativan. Signed out to Dr Apodaca at change of shift. . : Suicide gesture Qualifiers: Encounter type: initial encounter Qualified Code(s): X83.8XXA - Intentional self-harm by other specified means, initial encounter Alcohol intoxication Qualifiers: Complication of substance-induced condition: uncomplicated Qualified Code(s): F10.920 - Alcohol use, unspecified with intoxication, uncomplicated
[2019-12-12] MEDS ORDERED: ZOLPIDEM TARTRATE 5 MG TAB PO PRN (01:02)
--- NOTE | 2019-12-12 03:00 | Emergency Department Note ---
ED Visit Note This case was signed out to me at change of shift awaiting bed placement. I have cared for this patient over the past couple of nights while he has been held here in the emergency department. The patient was asking for something to help him sleep. He was given 5 mg of oral Ambien. 0520: The patient is still not sleeping at this time. However, he is cooperative. He declines wanting anything more to help him sleep. Patient will be signed out to Dr. Bosch at change of shift awaiting further evaluation by psychiatry and possible bed placement. . : Suicide gesture Qualifiers: Encounter type: initial encounter Qualified Code(s): X83.8XXA - Intentional self-harm by other specified means, initial encounter Alcohol intoxication Qualifiers: Complication of substance-induced condition: uncomplicated Qualified Code(s): F10.920 - Alcohol use, unspecified with intoxication, uncomplicated
[2019-12-12] MEDS ORDERED: LORazepam 1 MG TAB SL STA (08:02)
[2019-12-12] MEDS ORDERED: hydrOXYzine HCl 25 MG TAB PO PRN ×2 (11:25)
[2019-12-12] MEDS ORDERED: ALUMINUM/MAGNESIUM SUSP 30 ML UDC PO PRN (11:25)
[2019-12-12] MEDS ORDERED: BISMUTH SUBSALICYLATE LIQD 236 ML PO PRN (11:25)
[2019-12-12] MEDS ORDERED: MAGNESIUM HYDROXIDE SUSP 30 ML UDC PO PRN (11:25)
[2019-12-12] MEDS ORDERED: ACETAMINOPHEN 325 MG TAB PO PRN (11:25)
[2019-12-12] MEDS ORDERED: SODIUM CHLORIDE 0.65% NA SOLN 45 ML (OCEAN) PRN (11:25)
[2019-12-12] MEDS ORDERED: ZIPRASIDONE 20 MG/ML SDV IM STA (11:28)
[2019-12-12] MEDS ORDERED: LORazepam 2 MG/4 ML VIAL IV ONE (11:29)
[2019-12-12] MEDS ORDERED: OLANZapine 10 MG/2.1 ML SDV IM PRN (11:31)
[2019-12-12] MEDS ORDERED: LORazepam 2 MG/ML VIAL (IM USE) IM STA (11:32)
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
--- NOTE | 2019-12-12 14:02 | Emergency Department Note ---
ED Visit Note The patient was signed out to me. The patient received Ativan sublingual while here as well as IM Geodon and IM Ativan. He was accepted at [facility] . : Suicide gesture Qualifiers: Encounter type: initial encounter Qualified Code(s): X83.8XXA - Intentional self-harm by other specified means, initial encounter Alcohol intoxication Qualifiers: Complication of substance-induced condition: uncomplicated Qualified Code(s): F10.920 - Alcohol use, unspecified with intoxication, uncomplicated
[2019-12-12] MEDS: cloNIDine HCL 0.1 MG TAB PO SCH (18:56)
[2019-12-12] MEDS: OLANZapine 10 MG TAB PO PRN (18:57)
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
[2019-12-13] MEDS ORDERED: NICOTINE POLACRILEX 2 MG GUM MT PRN (08:15)
[2019-12-13] MEDS: NICOTINE 21 MG/24 HR TDSY TD SCH ×2 (10:10→13:20)
[2019-12-13] MEDS: FLUTICASONE PROPIONATE NA SPR 16 GM BTL SCH ×2 (10:10→11:03)
--- NOTE | 2019-12-13 12:48 | Hospitalist Progress Note ---
Date of Service December 13, 2019 Assessment & Plan (1) Sinusitis: unclear reliability of hx, but does note that he was sick with congestion for a while and then has been getting worse the last few days -- therefore, risk/benefit favors treating as bacterial overgrowth -PCN allergy "severe hives" -- probably could treat w cephalosporin but don't want to risk reaction given circumstances -doxy 100mg bid x 7-10 days (7 if better by then, 10 if slower to improve); would not anticipate rapid immediate improvement - likely to take a few days for improvement to begin -afrin BID for drainage/decongestion 3 days (6 doses max - to avoid rebound congestion) -will sign off for now, if not showing significant improvement by around 12/16 (or if any marked worsening -- fever/intractable facial pain/SOB) then please reconsult me directly. Admission and Anticipated Discharge Date Admission Date: December 12, 2019 Subjective asked to see for congestion/green drainage notes sick for a while w congestion - really can't give a good time frame - on directed questioning even gives very scant details but seems to loosely endorse probably a few weeks. green drainage, congestion. does not that things definitely have been getting worse since coming to ER no other acute sx noted, again fairly vague historian at best outside of stating bad congestion and green drainage. notes PCN causes "severe hives" Review of Systems Review of Systems: Other difficult historian but ROS seems otherwise negative except for as above Physical Exam Physical Exam: gen aao pleasant but soemwhat odd affect, nad. heent nc at mmm. pharynx clear no exudate or tonsilar hypertrophy, maybe faint erythema. (+) TTP L>R maxillary > frontal sinuses. breathing unlabored no accessory muscles good effort skin no rashes no pallor or icterus neuro no focal deficits Results & Data Results & Data ([facility]) Vital Signs (Past 12 Hours) Vital Signs Temp Pulse Resp BP 12/13/19 06:32 98.2 F 76 16 121/81 PG Care Time/CCT Total # of Minutes Spent Total Time Spent with Patient: Total time spent is greater than 50% in coordination of care (as documented) at patient's floor/unit and/or counseling patient: Coding Level of Care Code 62244 Inpt Consult Level 2 Diagnoses Sinusitis J32.9
[2019-12-13] MEDS: DOXYCYCLINE HYCLATE 100 MG CAP PO SCH ×2 (13:44→19:30)
[2019-12-13] MEDS: OLANZapine 10 MG TAB PO PRN ×2 (13:44→19:33)
[2019-12-13] MEDS ORDERED: LORazepam 1 MG TAB PO STA (14:46)
[2019-12-13] MEDS: cloNIDine HCL 0.1 MG TAB PO SCH (19:30)
[2019-12-13] MEDS: OXYMETAZOLINE 0.05% 30 ML BTL SCH (19:32)
[2019-12-14] MEDS: OLANZapine 10 MG TAB PO PRN ×2 (01:30→10:36)
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
[2019-12-14] MEDS: DOXYCYCLINE HYCLATE 100 MG CAP PO SCH (08:36)
[2019-12-14] MEDS: NICOTINE 21 MG/24 HR TDSY TD SCH (08:39)
[2019-12-14] MEDS: FLUTICASONE PROPIONATE NA SPR 16 GM BTL SCH (08:39)
[2019-12-14] MEDS: OXYMETAZOLINE 0.05% 30 ML BTL SCH (08:41)
[2019-12-14] MEDS ORDERED: OLANZapine 10 MG TAB PO SCH (09:00)
--- NOTE | 2019-12-14 11:23 | Discharge Summary ---
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 negative symptoms of schizophrenia, and it is difficult to tell if hallucinations are related to a mood disorder, substance abuse, or personality disorder. Continue to monitor and gather information. 12/12 -patient denying hallucinations since arrival, unwilling to discuss the hallucinations he was experiencing when he first came to the ER. Although his UDS was negative, we cannot rule out substance abuse, as multiple substances are not detected in our drug screen. (5) Outbursts of anger: 12/11 -diagnosis of oppositional defiant disorder as a child, and now demonstrating antisocial personality traits as an adult. -I have ordered olanzapine 10 mg p.o. and IM as needed for psychosis and/or agitation. If this is ineffective, we could try ziprasidone 15 mg IM, which could be combined with lorazepam 2 mg IM (this combination was helpful in the ER). 12/12 -behavior is consistent with antisocial personality disorder, patient uses intimidation and threats to attempt to manipulate others. He has already been informed that if he is violent or threatening here, that police will be conta cted and criminal charges pressed. He is aware of what he is doing, is not currently manic or psychotic, and should be held responsible for his behavior. (6) Alcohol abuse: 12/11 -we will need to address with patient once he is awake and cooperative. His alcohol abuse has contributed to disinhibition, worsening of underlying symptoms and unsafe behavior. -Avoid prescription of controlled substances given the risk of abuse/misuse/negative outcomes. 12/12 -patient is refusing the brief intervention, remains agitated and uncooperative. 12/13 - Brief intervention was offered and accepted Intervention was greater than 5 min in length. Brief interventions include: 1. Assess Readiness to Quit, 2. Advise: Help Patient to Reduce or Abstain from Alcohol, 3. Agree: Set Specific, Feasible Goals, 4. Assist: Anticipate barriers, Problem-Solving Solutions. Social work to 5. Arrange: Referrals to appropriate treatment. Summary of intervention: The patient is in contemplation stage with regards to transtheoretical model of change. The patient is advised to decrease alcohol consumption due to depressant effects and risk of interactions with prescription medications. The patient agreed to abstain from alcohol, and will be provided with recovery materials to continue to education self on how to cope with their condition without drinking. (7) Autism spectrum disorder: 12/11 -I am unaware if he was actually diagnosed with this as a child, as we do not have copies of neuropsychological testing, but it is listed in the EMR as a past diagnosis. It would be helpful to clarify this. Mental Health & Subst Abuse Tx Banker Mason Name of Banker Mason: Chevy, "won't talk to him." Post Discharge Appointments Smoking Cessation Counseling Tobacco Cessation Medication Prescribed at Discharge: Offered & Pt Refused Discharge Plan Discharge Items Patient Disposition: Home - Self-Care Reason For Visit: SUICIDE ATTEMPT/AGGRESSIVE BEHAVIOR Discharge Diagnosis: Mood disorder NOS Alcohol abuse Activity: Per Instructions section Non-emergency contact: Primary Care Provider, Psychiatrist, Therapist and [employer] Tech Call non-emergency contact if: you have any medication questions and your symptoms worsen Follow-up/Referrals: PCP,NO [Primary Care Provider] - Diet: Regular Addtl Attending Provider Instructions: SPECIAL CARE INSTRUCTIONS: 1. Follow through with your scheduled aftercare appointments. If unable to keep an appointment, please call to reschedule. 2. Take your medication only as prescribed. Medication should not be changed or stopped without the approval of your doctor. In the event of worsening symptoms or concerns about side effects, contact your doctor immediately. 3. Utilize new healthy coping skills, anger management skills, and stress management skills learned during your hospitalization. Journal feelings and process them with a support person. Identify stressors or situations that may result in relapse, deterioration or inappropriate behaviors and develop a plan to deal with those issues. 4. If your coping skills are ineffective and you are in crisis, contact your outpatient providers for direction. If unable to reach your providers, please call the [facility] CRISIS LINE AT , go to the [facility] walk-in center at [address], [address], [place], or go to the closest Emergency Room. 5. Avoid alcohol and un-prescribed drugs. 6. You have been provided with the Mental Health Advance Directives Pamphlet for your review. AFTERCARE APPOINTMENTS: * Please call your insurance company prior to your scheduled appointment to confirm your aftercare providers are covered. Take your insurance information to your appointments. WHO TO CALL AND WHEN: Medical Emergencies: For questions or emergencies related to your hospital stay, please contact the Inpatient Behavioral Health Unit at [phone]. A special agent in charge is on-call 22/09 for the Behavioral Health Unit for emergencies At any time you feel your situation is an emergency, you may also call 911 immediately. Pending Studies at Discharge: No Stand-Alone Forms: My [facility], Smoking Cessation, Suicide Prevention Resources Medications and DC Order Prescriptions: New doxycycline hyclate 100 mg Capsule 100 mg PO BID Qty: 18 RF: 0 olanzapine 10 mg Tablet 10 mg PO BID Qty: 60 RF: 0 Continued clonidine HCl 0.1 mg tablet 0.1 mg PO HS RF: 0 melatonin 3 mg Tablet 9 mg PO HS Qty: 90 RF: 0 fluticasone propionate 50 mcg/actuation spray,suspension 1 spray INTRANASAL DAILY RF: 0 Discontinued olanzapine 5 mg Tablet,Disintegrating 5 mg PO QAM Qty: 30 RF: 0 olanzapine 5 mg Tablet,Disintegrating 15 mg PO HS Qty: 60 RF: 0 quetiapine [Seroquel] 300 mg tablet 300 mg PO HS RF: 0 hydroxyzine HCl 50 mg tablet 50 mg PO DAILY RF: 0 lorazepam 0.5 mg tablet 0.5 mg PO UD RF: 0 Discharge Orders: Discharge Order (Routine); Ordered 12/14/19 Ordered By: Winnie Pollard Admission Data Admit Date/Time: 12/12/19 11:25 Attending Provider: Winnie Pollard Admit Provider: Winnie Pollard Primary Care Provider: PCP,NO Other Providers: Jayce Starks ; Yoko Hernandez ; Wilmer Terry ; Kevin Liu ; Anna Jackson ; Brenden Josue ; Marquise Soto ; Hardik Wilcox ; Brisa Jeter ; Christy Aguilar ; Halle Langley ; Iker Gallagher ; Aliza Sosa ; Brenda Hernandez ; Ashish Daniel ; Ian Munson ; Lai Gill ; Cassidy Joseph ; Antonino Yates ; Jonas Garcia ; Wilmer Harrison ; Avinash Blanchard ; Rehana Escalona ; Yolie Escalona ; Jerman Lee ; Radha Bailey ; Kailash Bailey ; Feliciano Breen ; Parker Reyes Other Interventions: Discharge Summary Assessment (RN) Last Done: 12/14/19 10:45 Coding Level of Care Code 58232 D/C day mgmt > 30 min Diagnoses Antisocial personality disorder F60.2 Noncompliance Z91.19 Mood disorder F39 Auditory hallucination R44.0 Outbursts of anger R45.4 Alcohol abuse F10.10 Autism spectrum disorder F84.0
== END 2019-12-14 11:22 | disposition home or self-care (01) | DRG 883 ==
LOC: ED 18:17 → 3S 12-12 11:25

== ENCOUNTER 2020-07-29 19:48 | Inpatient (IN) ==
[2020-07-29] MEDS ORDERED: RAPID SEQUENCE INDUCTION BAG ONE (19:49)
[2020-07-29] MEDS ORDERED: ONDANSETRON INJ 2 MG/ML 2 ML VIAL IV STA (19:57)
[2020-07-29] MEDS ORDERED: SODIUM CHLORIDE 0.9% 1000ML 1,000 ML IV SCH (20:00)
[2020-07-29] MEDS ORDERED: PROPOFOL IV EMULSION 10 MG/ML 100 ML VIAL IV ONE (20:10)
[2020-07-29 20:18] LABS: Basophils # (auto) 0.06 K/uL (0-0.2); Basophils % (auto) 0.6 %; Eosinophils # (auto) 0.18 K/uL (0-0.5); Eosinophils % (auto) 1.9 %; Hematocrit (blood only) 48.1 % (42-52); Hemoglobin 16.6 g/dL (14.0-18.0); Lymphocytes # (auto) 4.17 K/uL (1.2-3.4); Lymphocytes % (auto) 43.9 %; Mean Corpuscular Hgb Conc 34.5 g/dL (32-36); Mean Corpuscular Volume 92.9 fL (80-100); Mean Platelet Volume 8.8 fL (7.4-10.4); Monocytes # (auto) 0.47 K/uL (0.11-0.59); Monocytes % (auto) 4.9 %; Neutrophils # (auto) 4.62 K/uL (1.4-6.5); Neutrophils % (auto) 48.7 %; Platelet Count 385 K/uL (130-400); RDW Coefficient of Variation 13.2 % (11.5-14.5); RDW Standard Deviation 44.8 fL (36.4-46.3); Red Blood Count 5.18 M/uL (4.7-6.1)
--- NOTE | 2020-07-29 20:26 | Emergency Department Note ---
Impression & Plan Aggressive behavior, Head banging, Outbursts of anger, Mood disorder, Antisocial personality disorder ED Provider Note NAME: DANYEL Lawrence SENIOR AGE: 20 SEX: M : 2000 ARRIVES VIA: Police Cruiser INFORMANT: Patient, the [place] [employer] ED PROVIDER(S): Santiago Gonzales DO CHIEF COMPLAINT: Overdose HPI: The patient is a 20-year-old male who presented to the emergency department with police. We received a prehospital notification from the police about this patient because he was very combative. He was exhibiting self harming behavior. When the patient arrived he was very difficult to obtain a history from as he was yelling and thrashing about. I was able to obtain some history from the patient as well as from the police. Apparently the patient does have a history of alcohol abuse as well as suicidal ideation. The patient recently had a friend who is staying with him who . There is some suspicion this may have been an overdose. It is unclear if it was accidental or intentional. The patient then started to drink alcohol this evening and then called the police. Apparently he has done this before. He was having suicidal ideation. The patient also cut his left arm with a steak knife. On route to the hospital the patient was thrashing about and hit his head as well as his face. He was pu nching himself. The police were very fearful for his overall safety so presented to the emergency department with him as quickly as possible. Upon arrival to the emergency department the patient was very verbally abusive. He was still thrashing about and trying to hurt himself. The patient was a clear threat to himself as well as staff. He was also threatening me personally as well as my children. The patient was threatening to kill me and "masturbate while my kids ". He received ketamine for clear agitation. He was still admitting to wanting to . The patient himself did deny any drug use but did admit to significant alcohol use prior to calling the police. ROS: See above HPI for pertinent positives & negatives. A total of 10 systems reviewed and were otherwise negative. PAST MEDICAL HISTORY: See Below PAST SURGICAL HISTORY: See Below FAMILY HISTORY: See Below SOCIAL HISTORY: See Below HOME MEDICATIONS: See Below ALLERGIES: See Below VITALS: See Below PHYSICAL EXAMINATION: GENERAL: The patient is awake and alert but very anxious appearing. He is thrashing about. He follows commands intermittently. EYES: The conjunctivae are injected bilaterally. The pupils are round and reactive. EARS, NOSE, MOUTH AND THROAT: The nose is without any evidence of any deformity. Mucous membranes are moist. There is a bite rony to the tongue. There is also a cut on his inner upper lip. There is clotted blood in the right nares. No septal hematoma was noted. No active bleeding was noted. Dentition appeared intact. NECK: The neck is nontender and supple. RESPIRATORY: Normal respiratory effort is noted there is no evidence of wheezing rhonchi or rales CARDIOVASCULAR: Tachycardic rate with regular rhythm was noted. There is no definite murmur. GASTROINTESTINAL: The abdomen is soft. Abdomen is nontender. MUSCULOSKELETAL/EXTREMITIES: There is no evidence of gross deformity full range of motion is noted in the hips and shoulders. SKIN: No pedal edema was noted. Skin was warm and dry. There is a superficial laceration to the left forearm. No active bleeding was noted. NEUROLOGIC: Patient is awake and oriented to person place and situation. Strength was symmetric. Patellar tendon reflexes were 2+ bilaterally. MEDICAL DECISION MAKING: The patient is a 20-year-old male who presented to the emergency department for an evaluation after the police brought the patient to the emergency department. The patient has a history of similar episodes in the past. When the police picked the patient up he became very belligerent and aggressive. We were notified about the patient coming and told to be ready with security. Upon arrival the patient was very aggressive and threatening to staff and he was also hurting himself. Because of this behavior the patient was sedated and intubated for patient safety as well as staff safety. He was medically cleared in the emergency department but will still require medical management until he is no longer a threat to himself or others. He was treated multiple times with sedation to help manage the endotracheal tube. I discussed his case with the varnishing unit operator group as well as the on-call [facility] hospitalist group. They have agreed to evaluate the patient in the emergency department for further management and disposition. Triage Nursing notes reviewed. Prior medical records reviewed Vital Signs: reviewed and remarkable for elevated blood pressure and tachycardia. Differential diagnosis: Overdose, toxicologic, infection, hypoglycemia, electrolyte abnormalities, cardiac sources, intracerebral event, neurologic, trauma, as well as other pathologies. ER treatment provided: See below Diagnostics interpreted by me: ECG: EKG was obtained in the emergency department. My interpretation is sinus tachycardia at 114 bpm. There was no ectopy. There was no acute ST segment abnormalities noted. Nonspecific interventricular conduction delay was noted with a QRS duration of 108. QTc was 463. This was compared to a tracing from November 022019. No significant changes were noted. Cardiac Monitoring: An order was placed for continuous cardiac monitoring. The monitor shows a rate of 98 bpm with sinus rhythm. Laboratory studies: As stated above and show below. Imaging studies: See below Consultation(s): 2114: I discussed this case with Dr. Pope. ED COURSE: Procedures: none Critical Care: I have personally spent greater than 60 minutes of critical care time in the direct management of this patient. This includes bedside care, interpretation of diagnostic studies, and testing, discussion with consultants, patient, and family members, and other required patient management activities. This 60 minutes is in excess of all separately billable procedures. Past Med/Surg History Medical History Alcohol abuse Alcohol intoxication Antisocial personality disorder Autism spectrum disorder Cannabis abuse Cluster B personality disorder Noncompliance Outbursts of anger Self-injurious behavior Suicidal ideation Suicide gesture Surgical History No pertinent past surgical history Family History Mother Bipolar disorder Uncle Drug addiction Social History Smoking Status: Smoker, status unknown Tobacco Type: Cigarettes Hx Alcohol Use: Yes Alcohol type: beer, wine and hard liquor Preferred Language: Swedish Communication Ability: Effective Communication Ability Comment: pt currently intubated Visual Impairment: No Limitations Hearing Ability: Normal Licensed Nuclear Operator Required: No Beliefs That Will Affect Care: None Current Living Situation: Family Other Information That Helps Us Care for You: No Assistive Devices: None Allergies Allergies Allergy/AdvReac Type Severity Reaction Status Date / Time Penicillins Allergy Intermediate Unknown Verified 05/08/20 01:36 haloperidol [From Haldol] AdvReac Unknown Verified 05/08/20 01:36 Home Meds Home Medications Medication Instructions Recorded Confirmed clonidine HCl 0.1 mg PO HS 05/08/20 05/08/20 lorazepam 0.5 mg PO UD PRN 05/08/20 05/08/20 olanzapine 20 mg PO DAILY 05/08/20 05/08/20 Results & Data (ED) Vital Signs Vital Signs - 24 hr 07/29/20 19:53 07/29/20 20:02 07/29/20 20:06 Temperature Source Oral Pulse Rate 115 H 111 H 108 H Pulse Rate from SpO2 Sensor 109 H 112 H Respiratory Rate 18 Blood Pressure 175/115 H 175/115 H 169/121 H Blood Pressure Mean 135 135 137 Pulse Oximetry 97 100 100 Oxygen Delivery Method Room Air Sepsis Recent Fever Within 48 Hours No Sepsis New/Unexplained Change in Mental Status N/A Sepsis Action Taken by Nursing No Action Required End-Tidal CO2 07/29/20 20:08 07/29/20 20:10 07/29/20 20:11 Temperature Source Pulse Rate 119 H 114 H 113 H Pulse Rate from SpO2 Sensor 119 H 115 H 114 H Respiratory Rate Blood Pressure 167/128 H 163/125 H 158/129 H Blood Pressure Mean 141 137 138 Pulse Oximetry 100 100 100 Oxygen Delivery Method Sepsis Recent Fever Within 48 Hours Sepsis New/Unexplained Change in Mental Status Sepsis Action Taken by Nursing End-Tidal CO2 07/29/20 20:13 07/29/20 20:15 07/29/20 20:18 Temperature Source Pulse Rate 114 H 115 H 115 H Pulse Rate from SpO2 Sensor 114 H 115 H 116 H Respiratory Rate Blood Pressure 156/114 H 170/125 H 171/127 H Blood Pressure Mean 128 140 141 Pulse Oximetry 100 99 98 Oxygen Delivery Method Sepsis Recent Fever Within 48 Hours Sepsis New/Unexplained Change in Mental Status Sepsis Action Taken by Nursing End-Tidal CO2 46 07/29/20 20:20 07/29/20 20:23 07/29/20 20:25 Temperature Source Pulse Rate 118 H 121 H 123 H Pulse Rate from SpO2 Sensor 118 H 121 H 123 H Respiratory Rate Blood Pressure 168/120 H 172/128 H 179/131 H Blood Pressure Mean 136 142 147 Pulse Oximetry 97 99 95 Oxygen Delivery Method Sepsis Recent Fever Within 48 Hours Sepsis New/Unexplained Change in Mental Status Sepsis Action Taken by Nursing End-Tidal CO2 50 51 51 07/29/20 20:28 07/29/20 20:30 07/29/20 20:33 Temperature Source Pulse Rate 119 H 113 H 117 H Pulse Rate from SpO2 Sensor 119 H 116 H 117 H Respiratory Rate Blood Pressure 174/124 H 171/120 H 168/119 H Blood Pressure Mean 140 137 135 Pulse Oximetry 94 95 95 Oxygen Delivery Method Sepsis Recent Fever Within 48 Hours Sepsis New/Unexplained Change in Mental Status Sepsis Action Taken by Nursing End-Tidal CO2 52 52 52 07/29/20 20:35 07/29/20 21:02 07/29/20 21:03 Temperature Source Pulse Rate 115 H 108 H 102 H Pulse Rate from SpO2 Sensor 115 H 108 H 101 H Respiratory Rate Blood Pressure 186/128 H 195/143 H 189/133 H Blood Pressure Mean 147 160 151 Pulse Oximetry 94 98 96 Oxygen Delivery Method Sepsis Recent Fever Within 48 Hours Sepsis New/Unexplained Change in Mental Status Sepsis Action Taken by Nursing End-Tidal CO2 52 8 47 07/29/20 21:05 07/29/20 21:08 07/29/20 21:10 Temperature Source Pulse Rate 102 H 102 H 105 H Pulse Rate from SpO2 Sensor 102 H 102 H 106 H Respiratory Rate Blood Pressure 198/138 H 160/118 H 173/116 H Blood Pressure Mean 158 132 135 Pulse Oximetry 96 96 96 Oxygen Delivery Method Sepsis Recent Fever Within 48 Hours Sepsis New/Unexplained Change in Mental Status Sepsis Action Taken by Nursing End-Tidal CO2 43 47 21 07/29/20 21:13 07/29/20 21:15 07/29/20 21:18 Temperature Source Pulse Rate 98 H 102 H 97 H Pulse Rate from SpO2 Sensor 98 H 101 H 97 H Respiratory Rate Blood Pressure 178/119 H 162/115 H 157/102 H Blood Pressure Mean 138 130 120 Pulse Oximetry 96 95 96 Oxygen Delivery Method Sepsis Recent Fever Within 48 Hours Sepsis New/Unexplained Change in Mental Status Sepsis Action Taken by Nursing End-Tidal CO2 54 52 47 07/29/20 21:20 Temperature Source Pulse Rate 96 H Pulse Rate from SpO2 Sensor 96 H Respiratory Rate Blood Pressure 155/102 H Blood Pressure Mean 119 Pulse Oximetry 96 Oxygen Delivery Method Sepsis Recent Fever Within 48 Hours Sepsis New/Unexplained Change in Mental Status Sepsis Action Taken by Nursing End-Tidal CO2 43 Home Medications Current Medication List: was personally reviewed by me Laboratory Data Attestation: I reviewed the patient's lab results. Result diagrams: 07/29/20 20:01 07/29/20 20:01 Lab Results 07/29/20 07/29/20 07/29/20 Range/Units 20:01 20:01 20:01 WBC 9.50 (4.8-10.8) K/uL RBC 5.18 (4.7-6.1) M/uL Hgb 16.6 (14.0-18.0) g/dL Hct 48.1 (42-52) % MCV 92.9 (80-100) fL MCH 32.0 (25-34) pg MCHC 34.5 (32-36) g/dL RDW Std Deviation 44.8 (36.4-46.3) fL RDW Coeff of Efrem 13.2 (11.5-14.5) % Plt Count 385 (130-400) K/uL MPV 8.8 (7.4-10.4) fL Immature Gran % (Auto) 0.0 % Neut % (Auto) 48.7 % Lymph % (Auto) 43.9 % [place]ward % (Auto) 4.9 % Eos % (Auto) 1.9 % Baso % (Auto) 0.6 % Neut # (Auto) 4.62 (1.4-6.5) K/uL Lymph # (Auto) 4.17 H (1.2-3.4) K/uL [place]ward # (Auto) 0.47 (0.11-0.59) K/uL Eos # (Auto) 0.18 (0-0.5) K/uL Baso # (Auto) 0.06 (0-0.2) K/uL Immature Gran # (Auto) 0.00 (0.00-0.02) K/uL PT 10.1 (9.0-12.0) Seconds INR 1.0 (0.9-1.1) APTT 25.1 (21.0-31.0) Seconds PTT Ratio 1.0 Sodium 141 (136-145) mmol/L Potassium 3.5 (3.5-5.1) mmol/L Chloride 106 (98-107) mmol/L Carbon Dioxide 17 L (21-32) mmol/L Anion Gap 17.0 H (3-11) BUN 13 (7-18) mg/dl Creatinine 0.92 (0.6-1.4) mg/dl Est Cr Clr Drug Dosing 136.9 ml/min Est GFR ( Amer) 137.3 ml/min Est GFR (Non-Af Amer) 118.5 ml/min BUN/Creatinine Ratio 13.7 (10-20) Glucose 80 (70-99) mg/dl Calcium 9.0 (8.5-10.1) mg/dl Magnesium 2.1 (1.8-2.4) mg/dl Total Bilirubin 0.4 (0.2-1) mg/dl AST 25 (15-37) U/L ALT 35 (12-78) U/L Alkaline Phosphatase 65 (45-117) U/L Total Creatine Kinase 255 (39-308) U/L Troponin I < 0.015 (0-0.045) ng/ml Total Protein 8.1 (6.4-8.2) gm/dl Albumin 4.3 (3.4-5.0) gm/dl Globulin 3.8 (2.5-4.0) gm/dl Albumin/Globulin Ratio 1.1 (0.9-2) Lipase 122 (73-393) U/L Urine Color Urine Appearance (Clear) Urine pH (4.5-7.5) Ur Specific [place] (1.000-1.030) Urine Protein (Negative) Urine Glucose (UA) (Negative) Urine Ketones (Negative) Urine Blood (Negative) Urine Nitrite (Negative) Urine Bilirubin (Negative) Urine Urobilinogen (Negative) Ur Leukocyte Esterase (Negative) Salicylates (2.8-20) mg/dl Urine Opiates Screen (Neg) Ur Methadone, Qual (Neg) Acetaminophen (10-30) ug/ml Urine Barbiturates (Neg) Ur Phencyclidine (PCP) (Neg) U Amphetamin/Meth Scrn (Neg) MDMA (Ecstasy) Screen (Neg) U Benzodiazepines Scrn (Neg) Ur Cocaine Metabolite (Neg) U Marijuana (THC) Screen (Neg) Ethyl Alcohol mg/dL (0-3) mg/dl COVID-19 Eval Order SARS-CoV-2 (PCR) (Negative) 07/29/20 07/29/20 07/29/20 Range/Units 20:01 20:10 20:25 WBC (4.8-10.8) K/uL RBC (4.7-6.1) M/uL Hgb (14.0-18.0) g/dL Hct (42-52) % MCV (80-100) fL MCH (25-34) pg MCHC (32-36) g/dL RDW Std Deviation (36.4-46.3) fL RDW Coeff of Efrem (11.5-14.5) % Plt Count (130-400) K/uL MPV (7.4-10.4) fL Immature Gran % (Auto) % Neut % (Auto) % Lymph % (Auto) % Woodward % (Auto) % Eos % (Auto) % Baso % (Auto) % Neut # (Auto) (1.4-6.5) K/uL Lymph # (Auto) (1.2-3.4) K/uL [place] # (Auto) (0.11-0.59) K/uL Eos # (Auto) (0-0.5) K/uL Baso # (Auto) (0-0.2) K/uL Immature Gran # (Auto) (0.00-0.02) K/uL PT (9.0-12.0) Seconds INR (0.9-1.1) APTT (21.0-31.0) Seconds PTT Ratio Sodium (136-145) mmol/L Potassium (3.5-5.1) mmol/L Chloride (98-107) mmol/L Carbon Dioxide (21-32) mmol/L Anion Gap (3-11) BUN (7-18) mg/dl Creatinine (0.6-1.4) mg/dl Est Cr Clr Drug Dosing ml/min Est GFR ( Amer) ml/min Est GFR (Non-Af Amer) ml/min BUN/Creatinine Ratio (10-20) Glucose (70-99) mg/dl Calcium (8.5-10.1) mg/dl Magnesium (1.8-2.4) mg/dl Total Bilirubin (0.2-1) mg/dl AST (15-37) U/L ALT (12-78) U/L Alkaline Phosphatase (45-117) U/L Total Creatine Kinase (39-308) U/L Troponin I (0-0.045) ng/ml Total Protein (6.4-8.2) gm/dl Albumin (3.4-5.0) gm/dl Globulin (2.5-4.0) gm/dl Albumin/Globulin Ratio (0.9-2) Lipase (73-393) U/L Urine Color Yellow Urine Appearance Clear (Clear) Urine pH 5.5 (4.5-7.5) Ur Specific [place] 1.007 (1.000-1.030) Urine Protein Negative (Negative) Urine Glucose (UA) Negative (Negative) Urine Ketones Negative (Negative) Urine Blood Negative (Negative) Urine Nitrite Negative (Negative) Urine Bilirubin Negative (Negative) Urine Urobilinogen Negative (Negative) Ur Leukocyte Esterase Negative (Negative) Salicylates < 1.7 L (2.8-20) mg/dl Urine Opiates Screen (Neg) Ur Methadone, Qual (Neg) Acetaminophen < 2 L (10-30) ug/ml Urine Barbiturates (Neg) Ur Phencyclidine (PCP) (Neg) U Amphetamin/Meth Scrn (Neg) MDMA (Ecstasy) Screen (Neg) U Benzodiazepines Scrn (Neg) Ur Cocaine Metabolite (Neg) U Marijuana (THC) Screen (Neg) Ethyl Alcohol mg/dL 152.2 H (0-3) mg/dl COVID-19 Eval Order SARS-CoV-2 (PCR) (Negative) 07/29/20 07/29/20 07/29/20 Range/Units 20:25 20:30 20:30 WBC (4.8-10.8) K/uL RBC (4.7-6.1) M/uL Hgb (14.0-18.0) g/dL Hct (42-52) % MCV (80-100) fL MCH (25-34) pg MCHC (32-36) g/dL RDW Std Deviation (36.4-46.3) fL RDW Coeff of Efrem (11.5-14.5) % Plt Count (130-400) K/uL MPV (7.4-10.4) fL Immature Gran % (Auto) % Neut % (Auto) % Lymph % (Auto) % [place] % (Auto) % Eos % (Auto) % Baso % (Auto) % Neut # (Auto) (1.4-6.5) K/uL Lymph # (Auto) (1.2-3.4) K/uL [place] # (Auto) (0.11-0.59) K/uL Eos # (Auto) (0-0.5) K/uL Baso # (Auto) (0-0.2) K/uL Immature Gran # (Auto) (0.00-0.02) K/uL PT (9.0-12.0) Seconds INR (0.9-1.1) APTT (21.0-31.0) Seconds PTT Ratio Sodium (136-145) mmol/L Potassium (3.5-5.1) mmol/L Chloride (98-107) mmol/L Carbon Dioxide (21-32) mmol/L Anion Gap (3-11) BUN (7-18) mg/dl Creatinine (0.6-1.4) mg/dl Est Cr Clr Drug Dosing ml/min Est GFR ( Amer) ml/min Est GFR (Non-Af Amer) ml/min BUN/Creatinine Ratio (10-20) Glucose (70-99) mg/dl Calcium (8.5-10.1) mg/dl Magnesium (1.8-2.4) mg/dl Total Bilirubin (0.2-1) mg/dl AST (15-37) U/L ALT (12-78) U/L Alkaline Phosphatase (45-117) U/L Total Creatine Kinase (39-308) U/L Troponin I (0-0.045) ng/ml Total Protein (6.4-8.2) gm/dl Albumin (3.4-5.0) gm/dl Globulin (2.5-4.0) gm/dl Albumin/Globulin Ratio (0.9-2) Lipase (73-393) U/L Urine Color Urine Appearance (Clear) Urine pH (4.5-7.5) Ur Specific [place] (1.000-1.030) Urine Protein (Negative) Urine Glucose (UA) (Negative) Urine Ketones (Negative) Urine Blood (Negative) Urine Nitrite (Negative) Urine Bilirubin (Negative) Urine Urobilinogen (Negative) Ur Leukocyte Esterase (Negative) Salicylates (2.8-20) mg/dl Urine Opiates Screen Neg (Neg) Ur Methadone, Qual Neg (Neg) Acetaminophen (10-30) ug/ml Urine Barbiturates Neg (Neg) Ur Phencyclidine (PCP) Neg (Neg) U Amphetamin/Meth Scrn Neg (Neg) MDMA (Ecstasy) Screen Neg (Neg) U Benzodiazepines Scrn Neg (Neg) Ur Cocaine Metabolite Neg (Neg) U Marijuana (THC) Screen Neg (Neg) Ethyl Alcohol mg/dL (0-3) mg/dl COVID-19 Eval Order Covid19 at [facility] SARS-CoV-2 (PCR) NEGATIVE (Negative) Administered Medications Discontinued Medications Etomidate (Etomidate 2 Mg/Ml 20 Ml Vial) Confirm Administered Dose 40 mg IV .STK-MED ONE Stop: 07/29/20 22:30 Last Increment: 07/29/20 22:31 Dose: 20 mg Documented by: [id number] Sodium Chloride (Nss 1000ml) 1,000 mls @ 999 mls/hr IV .Q1H1M FANNY Stop: 07/29/20 21:00 Last Infusion: 07/29/20 21:01 Dose: 0 mls/hr Documented by: [id number] Admin: 07/29/20 20:00 Dose: 999 mls/hr Documented by: [id number] Miscellaneous (Rapid Sequence Induction Bag) Confirm Administered Dose 1 ea .ROUTE .STK-MED ONE Stop: 07/29/20 19:50 Last Admin: 07/29/20 20:38 Dose: 1 ea Documented by: [id number] Ondansetron HCl (Ondansetron Inj 2 Mg/Ml 2 Ml Vial) 4 mg IV NOW STA Stop: 07/29/20 19:58 Last Admin: 07/29/20 20:39 Dose: Not Given Documented by: [id number] Propofol (Propofol Iv Emulsion 10 Mg/Ml 100 Ml Vial) Confirm Administered Dose 1,000 mg IV .STK-MED ONE Stop: 07/29/20 20:11 Last Admin: 07/29/20 20:10 Dose: 1,000 mg Documented by: [id number] Cosigned by: [id number] Imaging Data Radiologist's Impression: Cervical Spine CT 07/29/20 19:57 CT SCAN OF THE CERVICAL SPINE CLINICAL HISTORY: Trauma. COMPARISON STUDY: CT of the cervical spine dated 05/08/2020. TECHNIQUE: CT scan of the cervical spine is performed from the skull base to the upper thoracic spine. Images are reviewed in the axial, sagittal, and coronal planes. IV contrast was not administered for this examination. A dose lowering technique was utilized adhering to the principles of ALARA. CT DOSE: 1452.73 mGy.cm FINDINGS: Skeletal structures: The skeletal structures are well mineralized. There is no evidence of fracture or subluxation involving the cervical spine. Vertebral body height and alignment are maintained. There is straightening of the cervical lordosis. The odontoid process and lateral masses are intact. The atlantoaxial articulation is preserved. The spinous processes appear intact. Intervertebral discs: The disc spaces are well maintained. Central canal: Widely patent. Soft tissues: The prevertebral and paraspinous soft tissues are within normal limits. Fluid/secretions fill the pharynx. Calvarium: The visualized calvarium at the skull base appears intact. Brain parenchyma: Partially visualized brain parenchyma at the skull base is within normal limits. Sinuses and mastoids: The visualized paranasal sinuses are clear. The mastoid air cells are well pneumatized. Cerumen fills the external auditory canals. Lung apices: An endotracheal tube is in place. Apical lung parenchyma is clear as visualized. IMPRESSION: There is no evidence of fracture or subluxation involving the cervical spine. ACT 112: Negative or not required by law. Electronically signed by: Dewayne Lackey M.D. 07/29/2020 9:07 PM Chest X-Ray 07/29/20 19:57 SINGLE VIEW CHEST CLINICAL HISTORY: Intubation. Overdose. FINDINGS: 2 AP, portable, supine and upright chest radiographs are obtained. No prior studies are available for comparison at the time of dictation. The examination is degraded by portable technique and patient rotation. An endotracheal tube has been placed. On the initial image this projects over the right mainstem bronchus. On the second image this is been pulled back and projects 1.4 cm above the luis. The cardiomediastinal silhouette is unremarkable. The lungs and pleural spaces are clear. No pneumothorax is seen. The bony thorax is grossly intact. IMPRESSION: 1. An endotracheal tube has been placed as above. This projects 1.4 cm above the luis. 2. There is no airspace consolidation, pleural effusion, or pneumothorax.. ACT 112: Negative or not required by law. Electronically signed by: Dewayne Lackey M.D. 07/29/2020 8:[address] 07/29/20 19:57 CT SCAN OF THE FACIAL BONES WITHOUT IV CONTRAST CLINICAL HISTORY: Trauma. Intoxication. Facial injury. COMPARISON STUDY: CT of the facial bones dated 11/23/2018. TECHNIQUE: High-resolution CT scan of the facial bones is performed. Images are reviewed in the axial, sagittal, and coronal planes. IV contrast was not administered for this examination. A dose lowering technique was utilized adhering to the principles of ALARA. FINDINGS: The skeletal structures are well mineralized. There is no evidence of facial bone fracture. The bony orbits are intact and the orbital contents are within normal limits. The zygomatic arches, nasal bones, and pterygoid plates are preserved. The maxilla and mandible are intact. There are no layering blood products within the paranasal sinuses. There is no air-fluid level in the right maxillary antrum. Mild mucosal thickening is noted in the ethmoid sinuses. The remaining paranasal sinuses are clear. The mastoid air cells are well pneumatized. The visualized calvarium and upper cervical spine are maintained. Partially imaged brain parenchyma is within normal limits. Cerumen fills the external auditory canals. An endotracheal tube is in place. There is fluid within the nasal cavity and pharynx. IMPRESSION: There is no evidence of facial bone fracture. ACT 112: Negative or not required by law. Electronically signed by: Dewayne Lackey M.D. 07/29/2020 9:[address] 07/29/20 19:57 CT SCAN OF THE BRAIN WITHOUT IV CONTRAST CLINICAL HISTORY: Trauma. COMPARISON STUDY: CT of the brain dated 05/08/2020. TECHNIQUE: Unenhanced axial CT scan of the brain is performed from the vertex to the skull base. A dose lowering technique was utilized adhering to the principles of ALARA. The examination is compromised by motion artifact. The patient was scanned twice in an effort to improve image quality. FINDINGS: An endotracheal tube is noted on the manager nursing tomogram. Brain parenchyma: The brain parenchyma is normal in appearance. There is no hemorrhage, mass effect, or evidence of acute territorial ischemia by CT criteria. Sharma-white matter differentiation is preserved. No extra-axial fluid collection is seen. Ventricles, sulci, cisterns: Normal in configuration. Intracranial vasculature: The visualized intracranial vasculature at the skull base is normal in appearance. Calvarium: There is no depressed calvarial fracture. Sinuses and mastoids: There is an air-fluid level in the right maxillary antrum. The remaining visualized paranasal sinuses are clear. The mastoid air cells are well pneumatized. Orbits: The bony orbits are grossly intact. IMPRESSION: No acute intracranial abnormality noting a motion degraded ex amination. ACT 112: Negative or not required by law. Electronically signed by: Dewayne Lackey M.D. 07/29/2020 9:03 PM Discharge Plan Visit Data Chief Complaint: Mental Health Evaluation Stated Complaint: 302 MENTAL HEALTH EVAL ED Provider: Santiago Gonzales Discharge Problem: Aggressive behavior, Head banging, Outbursts of anger, Mood disorder, Antisocial personality disorder Patient Disposition: Admitted As Inpatient Condition: Good Discharge Instructions Interventions: ED Discharge Assessment Last Done: 07/29/20 22:25
[2020-07-29 20:28] LABS: Partial Thromboplastin Time 25.1 Seconds (21.0-31.0); Prothrombin Time 10.1 Seconds (9.0-12.0)
--- NOTE | 2020-07-29 20:34 | XRay Report ---
SINGLE VIEW CHEST CLINICAL HISTORY: Intubation. Overdose. FINDINGS: 2 AP, portable, supine and upright chest radiographs are obtained. No prior studies are donny ilable for comparison at the time of dictation. The examination is degraded by portable technique and patient rotation. An endotracheal tube has been placed. On the initial image this projects over the right mainstem bronchus. On the second image this is been pulled back and projects 1.4 cm above the c alex. The cardiomediastinal silhouette is unremarkable. The lungs and pleural spaces are clear. No p neumothorax is seen. The bony thorax is grossly intact. IMPRESSION: 1. An endotracheal tube has been placed as above. This projects 1.4 cm above the luis. 2. There is no airspace consolidation, pleural effusion, or pneumothorax.. ACT 112: Negative or not required by law. Electronically signed by: Dewayne Lackey M.D. 07/29/2020 8:33 PM
[2020-07-29 20:38] LABS: Alanine Aminotransferase 35 U/L (12-78); Albumin Level 4.3 gm/dl (3.4-5.0); Aspartate Aminotransferase 25 U/L (15-37); BUN Creatinine Ratio 13.7 (10-20); Blood Urea Nitrogen 13 mg/dl (7-18); Carbon Dioxide 17 mmol/L (21-32); Chloride 106 mmol/L (98-107); Creatinine Clr Calc Pharmacy 136.9 ml/min; Est GFR (African American) 137.3 ml/min; Est GFR (Non-African American) 118.5 ml/min; Glucose 80 mg/dl (70-99); Lipase 122 U/L (73-393); Magnesium 2.1 mg/dl (1.8-2.4); Potassium 3.5 mmol/L (3.5-5.1); Sodium 141 mmol/L (136-145)
[2020-07-29 20:40] LABS: Acetaminophen < 2 ug/ml (10-30)
[2020-07-29 20:40] LABS: Appearance Urine Clear (Clear); Bilirubin Urine Negative (Negative); Blood Urine Negative (Negative); Color Urine Yellow; Glucose Urine UA Negative (Negative); Ketones Urine Negative (Negative); Leukocyte Esterase Urine Negative (Negative); Nitrite Urine Negative (Negative); Protein Urine Negative (Negative); Specific Gravity Urine 1.007 (1.000-1.030); Urobilinogen Urine Negative (Negative); pH Urine 5.5 (4.5-7.5)
[2020-07-29 20:41] LABS: Salicylate < 1.7 mg/dl (2.8-20)
[2020-07-29 20:43] LABS: Albumin Globulin Ratio 1.1 (0.9-2); Alkaline Phosphatase 65 U/L (45-117); Bilirubin,Total 0.4 mg/dl (0.2-1); Creatine Kinase 255 U/L (39-308); Globulin 3.8 gm/dl (2.5-4.0); Total Protein 8.1 gm/dl (6.4-8.2); Troponin I < 0.015 ng/ml (0-0.045)
--- NOTE | 2020-07-29 21:04 | CT Scan Report ---
CT SCAN OF THE BRAIN WITHOUT IV CONTRAST CLINICAL HISTORY: Trauma. COMPARISON STUDY: CT of the brain dated 05/08/2020. TECHNIQUE: Unenhanced axial CT scan of the brain is performed from the vertex to the skull base. A d ose lowering technique was utilized adhering to the principles of ALARA. The examination is compromis ed by motion artifact. The patient was scanned twice in an effort to improve image quality. FINDINGS: An endotracheal tube is noted on the buckle strap puncher tomogram. Brain parenchyma: The brain parenchyma is normal in appearance. There is no hemorrhage, mass effect, or evidence of acute territorial ischemia by CT criteria. Sharma-white matter differentiation is preser santiago. No extra-axial fluid collection is seen. Ventricles, sulci, cisterns: Normal in configuration. Intracranial vasculature: The visualized intracranial vasculature at the skull base is normal in appe arance. Calvarium: There is no depressed calvarial fracture. Sinuses and mastoids: There is an air-fluid level in the right maxillary antrum. The remaining visual ized paranasal sinuses are clear. The mastoid air cells are well pneumatized. Orbits: The bony orbits are grossly intact. IMPRESSION: No acute intracranial abnormality noting a motion degraded examination. ACT 112: Negative or not required by law. Electronically signed by: Dewayne Lackey M.D. 07/29/2020 9:03 PM
--- NOTE | 2020-07-29 21:08 | CT Scan Report ---
CT SCAN OF THE CERVICAL SPINE CLINICAL HISTORY: Trauma. COMPARISON STUDY: CT of the cervical spine dated 05/08/2020. TECHNIQUE: CT scan of the cervical spine is performed from the skull base to the upper thoracic spine . Images are reviewed in the axial, sagittal, and coronal planes. IV contrast was not administered fo r this examination. A dose lowering technique was utilized adhering to the principles of ALARA. CT DOSE: 1452.73 mGy.cm FINDINGS: Skeletal structures: The skeletal structures are well mineralized. There is no evidence of fracture o r subluxation involving the cervical spine. Vertebral body height and alignment are maintained. There is straightening of the cervical lordosis. The odontoid process and lateral masses are intact. The a tlantoaxial articulation is preserved. The spinous processes appear intact. Intervertebral discs: The disc spaces are well maintained. Central canal: Widely patent. Soft tissues: The prevertebral and paraspinous soft tissues are within normal limits. Fluid/secretion s fill the pharynx. Calvarium: The visualized calvarium at the skull base appears intact. Brain parenchyma: Partially visualized brain parenchyma at the skull base is within normal limits. Sinuses and mastoids: The visualized paranasal sinuses are clear. The mastoid air cells are well pneu matized. Cerumen fills the external auditory canals. Lung apices: An endotracheal tube is in place. Apical lung parenchyma is clear as visualized. IMPRESSION: There is no evidence of fracture or subluxation involving the cervical spine. ACT 112: Negative or not required by law. Electronically signed by: Dewayne Lackey M.D. 07/29/2020 9:07 PM
--- NOTE | 2020-07-29 21:12 | CT Scan Report ---
CT SCAN OF THE FACIAL BONES WITHOUT IV CONTRAST CLINICAL HISTORY: Trauma. Intoxication. Facial injury. COMPARISON STUDY: CT of the facial bones dated 11/23/2018. TECHNIQUE: High-resolution CT scan of the facial bones is performed. Images are reviewed in the axia l, sagittal, and coronal planes. IV contrast was not administered for this examination. A dose lower ing technique was utilized adhering to the principles of ALARA. FINDINGS: The skeletal structures are well mineralized. There is no evidence of facial bone fracture. The bony orbits are intact and the orbital contents are within normal limits. The zygomatic arches, nasal bones, and pterygoid plates are preserved. The maxilla and mandible are intact. There are no la yering blood products within the paranasal sinuses. There is no air-fluid level in the right maxillar y antrum. Mild mucosal thickening is noted in the ethmoid sinuses. The remaining paranasal sinuses ar e clear. The mastoid air cells are well pneumatized. The visualized calvarium and upper cervical spin e are maintained. Partially imaged brain parenchyma is within normal limits. Cerumen fills the manager story al auditory canals. An endotracheal tube is in place. There is fluid within the nasal cavity and phar ynx. IMPRESSION: There is no evidence of facial bone fracture. ACT 112: Negative or not required by law. Electronically signed by: Dewayne Lackey M.D. 07/29/2020 9:11 PM
--- NOTE | 2020-07-29 21:23 | History & Physical Report ---
Date of Service July 29, 2020 Assessment & Plan (1) Admitted to intensive care unit: The patient was intubated in the emergency department for self protection and protection of others. He is admitted to the intensive care unit. Consult to the fulfillment coordinator. Routine ICU orders for intubated patient Present on Admission?: Yes (2) Aggressive behavior: Aggressive behavior/antisocial personality disorder/autism spectrum disorder/head-banging/homicidal ideation/outbursts of anger/self-injurious behavior- Patient was brought to the emergency department by the police and was found to be very combative. He was a danger to himself and others, and patient was intubated in the ED. All medications will be held. Psychiatry will be consulted when the patient is extubated, and will likely need admission to mental health unit. Present on Admission?: Yes (3) Antisocial personality disorder: Present on Admission?: Yes (4) Cluster B personality disorder: Present on Admission?: Yes (5) Mood disorder: Present on Admission?: Yes (6) Autism spectrum disorder: Present on Admission?: Yes (7) Head banging: Present on Admission?: Yes (8) Homicidal ideation: Present on Admission?: Yes (9) Outbursts of anger: Present on Admission?: Yes (10) Self-injurious behavior: Present on Admission?: Yes (11) Endotracheally intubated: See above Present on Admission?: Yes History of Present Illness Chief Complaint: The patient presented to the emergency department with uncontrolled aggressive behavior, head banging, outbursts of anger, mood disorder antisocial personality disorder. Primary Care Provider: NO PCP The patient is a 20-year-old male who was brought to the emergency department with police due to being very combative, exhibiting self harming behavior, yelling and thrashing about in the ED, and threatening to hurt himself and staff. Patient was intubated after receiving ketamine IV, with plans to admit to the ICU. Patient was noted to have a history of alcohol abuse, and alcohol level in the ED with 152.2. There were no active signs of infection. Allergies Allergy/AdvReac Type Severity Reaction Status Date / Time Penicillins Allergy Intermediate Unknown Verified 05/08/20 01:36 haloperidol [From Haldol] AdvReac Unknown Verified 05/08/20 01:36 Home Medications Medication Instructions Recorded Confirmed Type clonidine HCl 0.1 mg PO HS 05/08/20 05/08/20 History lorazepam 0.5 mg PO UD PRN 05/08/20 05/08/20 History olanzapine 20 mg PO DAILY 05/08/20 05/08/20 History Past Med/Surg History Medical History Alcohol abuse Alcohol intoxication Antisocial personality disorder Autism spectrum disorder Cannabis abuse Cluster B personality disorder Noncompliance Outbursts of anger Self-injurious behavior Suicidal ideation Suicide gesture Surgical History No pertinent past surgical history Family History Mother Bipolar disorder Uncle Drug addiction Social History Smoking Status: Smoker, status unknown Tobacco Type: Cigarettes Hx Alcohol Use: Yes Alcohol type: beer, wine and hard liquor Preferred Language: Slovak Communication Ability: Effective Communication Ability Comment: pt currently intubated Visual Impairment: No Limitations Hearing Ability: Normal Rehab Services Aide Required: No Beliefs That Will Affect Care: None Current Living Situation: Family Other Information That Helps Us Care for You: No Assistive Devices: None Review of Systems Review of Systems: Unobtainable due to cognitive status Physical Exam Physical Exam: The patient is sedated and intubated, well developed and well nourished, normocephalic and atraumatic, lying in bed and in no acute distress. HEENT--PERRL, EOMI, mucous membranes and oropharynx dry. Neck--No JVD. No bruits. Heart--mildly tachycardic normal S1 and S2. No murmurs, rubs or gallops. Lungs--clear bilaterally, no respiratory distress, no accessory muscle use. Abdomen--normal bowel sounds and soft. Nontender. Nondistended, no hernias or masses, no organomegaly. Extremities--no cyanosis or clubbing. No edema. There are good distal pulses b/l. Dermatologic--normal skin turgor, normal color, no abnormal lymph nodes, no rash. Neurologic--limited exam Rheumatologic--limited exam Psychiatric-limited exam due to sedation and intubation Results & Data Results & Data ([facility]) Vital Signs (Past 12 Hours) Vital Signs Pulse Resp BP Pulse Ox 07/29/20 20:35 115 H 186/128 H 94 07/29/20 20:33 117 H 168/119 H 95 07/29/20 20:30 113 H 171/120 H 95 07/29/20 20:28 119 H 174/124 H 94 07/29/20 20:25 123 H 179/131 H 95 07/29/20 20:23 121 H 172/128 H 99 07/29/20 20:20 118 H 168/120 H 97 07/29/20 20:18 115 H 171/127 H 98 07/29/20 20:15 115 H 170/125 H 99 07/29/20 20:13 114 H 156/114 H 100 07/29/20 20:11 113 H 158/129 H 100 07/29/20 20:10 114 H 163/125 H 100 07/29/20 20:08 119 H 167/128 H 100 07/29/20 20:06 108 H 169/121 H 100 07/29/20 20:02 111 H 175/115 H 100 07/29/20 19:53 115 H 18 175/115 H 97 Laboratory Results Laboratory Results WBC 9.50 K/uL (4.8-10.8) 07/29/20 20:01 RBC 5.18 M/uL (4.7-6.1) 07/29/20 20:01 Hgb 16.6 g/dL (14.0-18.0) 07/29/20 20:01 Hct 48.1 % (42-52) 07/29/20 20:01 MCV 92.9 fL (80-100) 07/29/20 20:01 MCH 32.0 pg (25-34) 07/29/20 20:01 MCHC 34.5 g/dL (32-36) 07/29/20 20:01 RDW Std Deviation 44.8 fL (36.4-46.3) 07/29/20 20:01 RDW Coeff of Efrem 13.2 % (11.5-14.5) 07/29/20 20:01 Plt Count 385 K/uL (130-400) 07/29/20 20:01 MPV 8.8 fL (7.4-10.4) 07/29/20 20:01 Immature Gran % (Auto) 0.0 % 07/29/20 20:01 Neut % (Auto) 48.7 % 07/29/20 20:01 Lymph % (Auto) 43.9 % 07/29/20 20:01 Quay % (Auto) 4.9 % 07/29/20 20:01 Eos % (Auto) 1.9 % 07/29/20 20:01 Baso % (Auto) 0.6 % 07/29/20 20:01 Neut # (Auto) 4.62 K/uL (1.4-6.5) 07/29/20 20:01 Lymph # (Auto) 4.17 K/uL (1.2-3.4) H 07/29/20 20:01 Quay # (Auto) 0.47 K/uL (0.11-0.59) 07/29/20 20:01 Eos # (Auto) 0.18 K/uL (0-0.5) 07/29/20 20:01 Baso # (Auto) 0.06 K/uL (0-0.2) 07/29/20 20:01 Immature Gran # (Auto) 0.00 K/uL (0.00-0.02) 07/29/20 20:01 PT 10.1 Seconds (9.0-12.0) 07/29/20 20: INR 1.0 (0.9-1.1) 07/29/20 20: APTT 25.1 Seconds (21.0-31.0) 07/29/20 20: PTT Ratio 1.0 07/29/20 20:01 Sodium 141 mmol/L (136-145) 07/29/20 20:01 Potassium 3.5 mmol/L (3.5-5.1) 07/29/20 20:01 Chloride 106 mmol/L (98-107) 07/29/20 20:01 Carbon Dioxide 17 mmol/L (21-32) L 07/29/20 20:01 Anion Gap 17.0 (3-11) H 07/29/20 20:01 BUN 13 mg/dl (7-18) 07/29/20 20:01 Creatinine 0.92 mg/dl (0.6-1.4) 07/29/20 20: Est Cr Clr Drug Dosing 136.9 ml/min 07/29/20 20:01 Est GFR ( Amer) 137.3 ml/min 07/29/20 20: Est GFR (Non-Af Amer) 118.5 ml/min 07/29/20 20:01 BUN/Creatinine Ratio 13.7 (10-20) 07/29/20 20: Glucose 80 mg/dl (70-99) 07/29/20 20: POC Glucose 76 mg/dl (70-99) 07/29/20 23:26 Calcium 9.0 mg/dl (8.5-10.1) 07/29/20 20: Magnesium 2.1 mg/dl (1.8-2.4) 07/29/20 20: Total Bilirubin 0.4 mg/dl (0.2-1) 07/29/20 20: AST 25 U/L (15-37) 07/29/20 20: ALT 35 U/L (12-78) 07/29/20 20: Alkaline Phosphatase 65 U/L (45-117) 07/29/20 20: Total Creatine Kinase 255 U/L (39-308) 07/29/20 20: Troponin I < 0.015 ng/ml (0-0.045) 07/29/20 20: Total Protein 8.1 gm/dl (6.4-8.2) 07/29/20 20: Albumin 4.3 gm/dl (3.4-5.0) 07/29/20 20: Globulin 3.8 gm/dl (2.5-4.0) 07/29/20 20: Albumin/Globulin Ratio 1.1 (0.9-2) 07/29/20 20: Lipase 122 U/L (73-393) 07/29/20 20: Urine Color Yellow 07/29/20: Urine Appearance Clear (Clear) 07/29/20: Urine pH 5.5 (4.5-7.5) 07/29/20 20: Ur Specific [place] 1.007 (1.000-1.030) 07/29/20 20: Urine Protein Negative (Negative) 07/29/20 Urine Glucose (UA) Negative (Negative) 05/30/21 20:25 Urine Ketones Negative (Negative) 07/29/20 20:25 Urine Blood Negative (Negative) 07/29/20 20:25 Urine Nitrite Negative (Negative) 07/29/20 20:25 Urine Bilirubin Negative (Negative) 07/29/20 20:25 Urine Urobilinogen Negative (Negative) 07/29/20 20:25 Ur Leukocyte Esterase Negative (Negative) 07/29/20 20:25 Salicylates < 1.7 mg/dl (2.8-20) L 07/29/20 20:01 Urine Opiates Screen Neg (Neg) 07/29/20 20:25 Ur Methadone, Qual Neg (Neg) 07/29/20 20:25 Acetaminophen < 2 ug/ml (10-30) L 07/29/20 20:01 Urine Barbiturates Neg (Neg) 07/29/20 20:25 Ur Phencyclidine (PCP) Neg (Neg) 07/29/20 20:25 U Amphetamin/Meth Scrn Neg (Neg) 07/29/20 20:25 MDMA (Ecstasy) Screen Neg (Neg) 07/29/20 20:25 U Benzodiazepines Scrn Neg (Neg) 07/29/20 20:25 Ur Cocaine Metabolite Neg (Neg) 07/29/20 20:25 U Marijuana (THC) Screen Neg (Neg) 07/29/20 20:25 Ethyl Alcohol mg/dL 152.2 mg/dl (0-3) H 07/29/20 20:10 COVID-19 Eval Order Covid19 at [facility] 07/29/20 20:30 SARS-CoV-2 (PCR) NEGATIVE (Negative) 07/29/20 20:[address] 07/29/20 19:57 CT SCAN OF THE CERVICAL SPINE CLINICAL HISTORY: Trauma. COMPARISON STUDY: CT of the cervical spine dated 05/08/2020. TECHNIQUE: CT scan of the cervical spine is performed from the skull base to the upper thoracic spine. Images are reviewed in the axial, sagittal, and coronal planes. IV contrast was not administered for this examination. A dose lowering technique was utilized adhering to the principles of ALARA. CT DOSE: 1452.73 mGy.cm FINDINGS: Skeletal structures: The skeletal structures are well mineralized. There is no evidence of fracture or subluxation involving the cervical spine. Vertebral body height and alignment are maintained. There is straightening of the cervical lordosis. The odontoid process and lateral masses are intact. The atlantoaxial articulation is preserved. The spinous processes appear intact. Intervertebral discs: The disc spaces are well maintained. Central canal: Widely patent. Soft tissues: The prevertebral and paraspinous soft tissues are within normal limits. Fluid/secretions fill the pharynx. Calvarium: The visualized calvarium at the skull base appears intact. Brain parenchyma: Partially visualized brain parenchyma at the skull base is within normal limits. Sinuses and mastoids: The visualized paranasal sinuses are clear. The mastoid air cells are well pneumatized. Cerumen fills the external auditory canals. Lung apices: An endotracheal tube is in place. Apical lung parenchyma is clear as visualized. IMPRESSION: There is no evidence of fracture or subluxation involving the cervi julian spine. ACT 112: Negative or not required by law. Electronically signed by: Dewayne Lackey M.D. 07/29/2020 9:[address] 07/29/20 19:57 CT SCAN OF THE FACIAL BONES WITHOUT IV CONTRAST CLINICAL HISTORY: Trauma. Intoxication. Facial injury. COMPARISON STUDY: CT of the facial bones dated 11/23/2018. TECHNIQUE: High-resolution CT scan of the facial bones is performed. Images are reviewed in the axial, sagittal, and coronal planes. IV contrast was not administered for this examination. A dose lowering technique was utilized adhering to the principles of ALARA. FINDINGS: The skeletal structures are well mineralized. There is no evidence of facial bone fracture. The bony orbits are intact and the orbital contents are within normal limits. The zygomatic arches, nasal bones, and pterygoid plates are preserved. The maxilla and mandible are intact. There are no layering blood products within the paranasal sinuses. There is no air-fluid level in the right maxillary antrum. Mild mucosal thickening is noted in the ethmoid sinuses. The remaining paranasal sinuses are clear. The mastoid air cells are well pneumatized. The visualized calvarium and upper cervical spine are maintained. Partially imaged brain parenchyma is within normal limits. Cerumen fills the external auditory canals. An endotracheal tube is in place. There is fluid wi thin the nasal cavity and pharynx. IMPRESSION: There is no evidence of facial bone fracture. ACT 112: Negative or not required by law. Electronically signed by: Dewayne Lackey M.D. 07/29/2020 9:[address] 07/29/20 19:57 CT SCAN OF THE BRAIN WITHOUT IV CONTRAST CLINICAL HISTORY: Trauma. COMPARISON STUDY: CT of the brain dated 05/08/2020. TECHNIQUE: Unenhanced axial CT scan of the brain is performed from the vertex to the skull base. A dose lowering technique was utilized adhering to the principles of ALARA. The examination is compromised by motion artifact. The patient was scanned twice in an effort to improve image quality. FINDINGS: An endotracheal tube is noted on the scene painter tomogram. Brain parenchyma: The brain parenchyma is normal in appearance. There is no hemorrhage, mass effect, or evidence of acute territorial ischemia by CT criteria. Sharma-white matter differentiation is preserved. No extra-axial fluid collection is seen. Ventricles, sulci, cisterns: Normal in configuration. Intracranial vasculature: The visualized intracranial vasculature at the skull base is normal in appearance. Calvarium: There is no depressed calvarial fracture. Sinuses and mastoids: There is an air-fluid level in the right maxillary antrum. The remaining visualized paranasal sinuses are clear. The mastoid air cells are well pneumatized. Orbits: The bony orbits are grossly intact. IMPRESSION: No acute intracranial abnormality noting a motion degraded examination. ACT 112: Negative or not required by law. Electronically signed by: Dewayne Lackey M.D. 07/29/2020 9:03 PM Chest X-Ray 07/29/20 21:43 SINGLE VIEW CHEST CLINICAL HISTORY: Vomiting. FINDINGS: An AP, portable, supine chest radiograph is compared to study performed earlier the same day 07/29/2020. The endotracheal tube has been pulled back, now projecting 4.5 cm above the luis. An enteric tube has been placed. The tip projects below the diaphragm and is coiled over the gastric fundus. The cardiomediastinal silhouette is unremarkable. Atelectasis is noted in the right upper lobe. No airspace consolidation is seen typical for pneumonia and no large pleural effusion is identified. No pneumothorax is seen. The bony thorax is grossly intact. IMPRESSION: 1. Endotracheal and enteric tubes are in place as above. 2. Right upper lobe atelectasis is new as compared to previous. ACT 112: Negative or not required by law. Electronically signed by: Dewayne Lackey M.D. 07/29/2020 10:07 PM KUB X-Ray 07/29/20 21:43 KUB CLINICAL HISTORY: Vomiting. FINDINGS: An AP, portable, supine abdominal radiograph is compared to study dated 07/15/2011 and correlated with abdominal CT dated 09/24/2019. There is a nonobstructed abdominal bowel gas pattern. [id number] fecal retention is seen throughout the colon. No evidence of intraperitoneal free air is identified on these supine views. An enteric tube is partially visualized projecting below the left hemidiaphragm. The bony structures appear intact. IMPRESSION: 1. No bowel obstruction. 2. An enteric tube projects below the diaphragm. Electronically signed by: Dewayne Lackey M.D. 07/29/2020 10:05 PM Code Status & VTE Plan Code Status Full code VTE Prophylaxis Plan VTE Prophylaxis will be ordered: Yes Critical Care Time Critical Care Time: Yes Total Critical Care Time: 40 PG Care Time/CCT Total # of Minutes Spent Total Time Spent with Patient: Total time spent is greater than 50% in coordination of care (as documented) at patient's floor/unit and/or counseling patient: Critical Care Time: Yes Total Critical Care Time: 40 Coding Level of Care Code 00582 Initial Inpt Care Lvl 3 Diagnoses Admitted to intensive care unit Z78.9 Aggressive behavior R46.89 Antisocial personality disorder F60.2 Cluster B personality disorder F60.9 Mood disorder F39 Autism spectrum disorder F84.0 Head banging F98.4 Homicidal ideation R45.850 Outbursts of anger R45.4 Self-injurious behavior Z72.89 Endotracheally intubated Z97.8 Additional Codes Critical Care Time - Critical Care Time: Yes ([id number]) Time Spent (min) 40
[2020-07-29 21:35] LABS: Amphetamines+Metham, Urine Neg (Neg); Barbiturates, Urine Neg (Neg); Benzodiazepine, Urine Neg (Neg); Cocaine, Urine Neg (Neg); MDMA (Ecstacy), Urine Neg (Neg); Methadone, Urine Neg (Neg); Opiate, Urine Neg (Neg); Phencyclidine, Urine Neg (Neg)
--- NOTE | 2020-07-29 21:40 | Procedure Note ---
Procedure Note Date of Service July 29, 2020 APC: Andrea Day PA-C. Attending: Dr. Hoffman A time-out was completed verifying correct patient, procedure, site, positioning. Patient was evaluated and required intubation for airway protection and safety of patient/staff in the setting of acute psychosis and self-harm as well as violent activity towards staff. Sedative agent used: Etomidate Paralysis agent used: Succinylcholine Emergent consent was implied given patients rapidly declining clinical status and need for airway protection. The patient was prepared in the appropriate fashion. Sedation was achieved utilizing Etomidate and Succinylcholine, per Dr. Gonzales administration. The patient was easily ventilated using [id number] to achieve adequate oxygenation. A 8.0 Mongolian endotracheal tube was placed under Video Laryngoscope to 27 cm at the lip. The stylette was removed and balloon was inflated with 10mL of air. Appropriate Colorimetric change was appreciated. Bilateral breath sounds were heard without air sounds in the abdomen - decreased LEFT breath sounds. Tube backed out [address] Gonzales was present for the entire procedure. Post Intubation Chest X-ray shows ET Tube in the RIGHT mainstem. Backed out an additional 3cm w/ repeat CXR showing 1.5 cm above the luis. Without pneumothorax. Patient tolerated the procedure well and there were no immediate complications. Coding CPT Codes Resuscitation - Resuscitation: 61591 Endotracheal Intubation, emergency ([id number]) [facility] [place] Codes (Charges) Resuscitation Resuscitation: 09338 Endotracheal Intubation, emergency
--- NOTE | 2020-07-29 22:06 | XRay Report ---
KUB CLINICAL HISTORY: Vomiting. FINDINGS: An AP, portable, supine abdominal radiograph is compared to study dated 07/15/2011 and corre lated with abdominal CT dated 09/24/2019. There is a nonobstructed abdominal bowel gas pattern. Mild-t o-moderate fecal retention is seen throughout the colon. No evidence of intraperitoneal free air is i dentified on these supine views. An enteric tube is partially visualized projecting below the left he midiaphragm. The bony structures appear intact. IMPRESSION: 1. No bowel obstruction. 2. An enteric tube projects below the diaphragm. Electronically signed by: Dewayne Lackey M.D. 07/29/2020 10:05 PM
--- NOTE | 2020-07-29 22:08 | XRay Report ---
SINGLE VIEW CHEST CLINICAL HISTORY: Vomiting. FINDINGS: An AP, portable, supine chest radiograph is compared to study performed earlier the same da y 07/29/2020. The endotracheal tube has been pulled back, now projecting 4.5 cm above the luis. An e nteric tube has been placed. The tip projects below the diaphragm and is coiled over the gastric fund us. The cardiomediastinal silhouette is unremarkable. Atelectasis is noted in the right upper lobe. N o airspace consolidation is seen typical for pneumonia and no large pleural effusion is identified. N o pneumothorax is seen. The bony thorax is grossly intact. IMPRESSION: 1. Endotracheal and enteric tubes are in place as above. 2. Right upper lobe atelectasis is new as compared to previous. ACT 112: Negative or not required by law. Electronically signed by: Dewayne Lackey M.D. 07/29/2020 10:07 PM
--- NOTE | 2020-07-29 22:23 | Critical Care Consultation ---
Date of Consultation July 29, 2020 Assessment & Plan (1) Admitted to intensive care unit: Reason Critically Ill: 20-year-old male with acute agitation and aggressiveness towards staff in the setting of alcohol intoxication requiring emergent endotracheal intubation for patient/staff safety and airway management. NEURO - * CAM ICU: Unable to assess * Aggressive behavior: * Patient is combative with police as well as staff. * Did respond to ketamine slightly. Still requiring four-point restraint. * Patient intubated for airway protection as well as for safety of himself and staff. * A degree of his behavior certainly could be triggered by his alcohol consumption. * On review of prior hospital visits/hospitalizations, patient has been aggressive in the past. He has an extensive history of antisocial personality disorder with minimal effectiveness of previously prescribed medications. * Patient will remain endotracheally intubated overnight. At this point, his medical alcohol should be completely cleared. * CT of head, neck, and facial bones all unremarkable. * Aim for early extubation. * 302 petition on chart: * Filled out by local police department. * Patient has been held at this facility on 302 warrants in the past. * Will require psych evaluation when appropriate. CARDIAC/VASCULAR - * No prior cardiac history. * Monitor on telemetry. RESPIRATORY - * Required endotracheal intubation: * Necessary in the setting of the suicidal/homicidal patient with aggressive behavior towards staff. * Wean down ventilator settings as tolerated. * Aim for early extubation. GI/NUTRITION - * OG in place. * Prophylaxis: Famotidine RENAL/LYTES - * No significant electrolyte derangements. * IVF: Normosol@100 mL/hr - * Harris in place - Strict I&Os. ENDO - * No h/o DM or Thyroid Dz * BSGs per unit protocol. ISS --> gtt per unit policy. HEME - * Stable H&H ID - * No concerns for infectious contribution at this time. LINES/IV ACCESS - * PIVs x3 DVT PROPHYLAXIS - * Lovenox * SCDs I have personally spent 45 minutes of critical care time in the direct management of this patient. This is a life/limb threatening event. This includes time spent evaluating patient, direct bedside care, chart review, placing orders, interpretation of diagnostic studies, discussion with consultants, patient, and family members, as well as other required patient management activities. This time is exclusive of all separately billable procedures, and teaching time and separate from and in addition to any other critical care service time. Thank you for allowing us to participate in the care of this patient. Please refer to my attending physician's documentation for any further recommendations. (2) Endotracheally intubated: (3) Aggressive behavior: (4) Antisocial personality disorder: (5) Alcohol abuse: (6) Cluster B personality disorder: (7) Noncompliance: Supervising Physician Co-Signing Physician Notes I have personally evaluated and examined this patient. I agree with assessment and plan of Joy Day PA-C. Patient intubated for combative behavior and acute intoxication. History of Present Illness History of Present Illness Patient is a 20-year-old male with a significant past medical history of mental health disease who presented to the emergency department in the company of local police department after he had apparently contacted them and was apparently very combative in route to the emergency department. He had apparently self- inflicted a cut to his LEFT arm with a steak knife. On presentation to the emergency department, the patient was extremely combative with staff as well as extremely verbally offensive. Patient was restrained in four-point restraints and received ketamine. While this did provide some relief of aggressive behavior, the patient still is a threat to himself as well as other staff members. Patient was intubated by myself at the request of emergency physician secondary to escalating doses of sedation needed to maintain safety for patient and staff. Remainder of HPI unable to be obtained secondary to current level of sedation. Allergies Allergy/AdvReac Type Severity Reaction Status Date / Time Penicillins Allergy Intermediate Unknown Verified 05/08/20 01:36 haloperidol [From Haldol] AdvReac Unknown Verified 05/08/20 01:36 Home Medications Medication Instructions Recorded Confirmed Type clonidine HCl 0.1 mg PO HS 05/08/20 05/08/20 History lorazepam 0.5 mg PO UD PRN 05/08/20 05/08/20 History olanzapine 20 mg PO DAILY 05/08/20 05/08/20 History Patient History Medical History Alcohol abuse Alcohol intoxication Antisocial personality disorder Autism spectrum disorder Cannabis abuse Cluster B personality disorder Noncompliance Outbursts of anger Self-injurious behavior Suicidal ideation Suicide gesture Surgical History No pertinent past surgical history Family History Mother Bipolar disorder Uncle Drug addiction Social History Smoking Status: Smoker, status unknown Tobacco Type: Cigarettes Hx Alcohol Use: Yes Alcohol type: beer, wine and hard liquor Preferred Language: Iraqi Communication Ability: Effective Communication Ability Comment: pt currently intubated Visual Impairment: No Limitations Hearing Ability: Normal Metal Grader Required: No Beliefs That Will Affect Care: None Current Living Situation: Family Other Information That Helps Us Care for You: No Assistive Devices: None Review of Systems Review of Systems: Unobtainable due to endotracheal tube and Unobtainable due to reduced consciousness Physical Exam Physical Exam: VITAL SIGNS - Vital signs and nursing notes were reviewed. GENERAL - 20-year-old male appearing his stated age who is in 4 point restraints and sedate. SKIN - Without rashes. HEAD - NC/AT. EYES - PERRL with EOMI bilaterally. Sclera anicteric. EARS - No deformities of external structures noted on gross examination bilaterally. NOSE - Midline and without cyanosis. Dried epistaxis noted to the external nares bilaterally. MOUTH/OROPHARYNX - Without perioral cyanosis. Buccal mucosa pink and moist and without leukoplakia. Good dentition noted. NECK - Neck with FROM. Supple to palpation. No nuchal rigidity. LUNGS - Chest wall symmetric without accessory muscle use, intercostals retractions, or central cyanosis. Normal vesicular breath sounds CTA B/L. No wheezes, rales, or rhonchi appreciated. CARDIAC - RRR with S1/S2. No murmur, rubs, or gallops appreciated. ABDOMEN - Abdominal contour flat without pulsations or visible masses. BS normoactive all four quadrants. No tenderness, palpable masses, hepatosp lenomegaly, or ascites noted. EXTREMITIES - No clubbing or peripheral cyanosis. No pretibial edema present. +3/5 radial and dorsalis pedis pulses palpated throughout. +5/5 strength noted in UE/LE bilaterally. NEUROLOGIC - Cranial nerves II through XII grossly intact. No focal neurological deficits noted. Unable to fully assess secondary to level of sedation. Results & Data Results & Data ([facility]) Vital Signs (Past 12 Hours) Vital Signs Pulse Resp BP Pulse Ox 07/29/20 21:54 89 144/98 H 100 07/29/20 21:48 97 H 156/108 H 100 07/29/20 21:45 99 H 168/116 H 98 07/29/20 21:43 93 H 176/122 H 98 07/29/20 21:40 94 H 170/120 H 98 07/29/20 21:38 96 H 167/117 H 97 07/29/20 21:35 98 H 165/112 H 92 07/29/20 21:33 87 154/102 H 100 07/29/20 21:30 89 155/100 H 100 07/29/20 21:28 91 H 152/101 H 100 07/29/20 21:25 93 H 160/104 H 100 07/29/20 21:23 98 H 171/103 H 98 07/29/20 21:20 96 H 155/102 H 96 07/29/20 21:18 97 H 157/102 H 96 07/29/20 21:15 102 H 162/115 H 95 07/29/20 21:13 98 H 178/119 H 96 07/29/20 21:10 105 H 173/116 H 96 07/29/20 21:08 102 H 160/118 H 07/29/20 21:05 102 H 198/138 H 96 07/29/20 21:03 102 H 189/133 H 96 07/29/20 21:02 108 H 195/143 H 98 07/29/20 20:35 115 H 186/128 H 94 07/29/20 20:33 117 H 168/119 H 95 07/29/20 20:30 113 H 171/120 H 95 07/29/20 20:28 119 H 174/124 H 94 07/29/20 20:25 123 H 179/131 H 95 07/29/20 20:23 121 H 172/128 H 99 07/29/20 20:20 118 H 168/120 H 97 07/29/20 20:18 115 H 171/127 H 98 07/29/20 20:15 115 H 170/125 H 99 07/29/20 20:13 114 H 156/114 H 100 07/29/20 20:11 113 H 158/129 H 100 07/29/20 20:10 114 H 163/125 H 100 07/29/20 20:08 119 H 167/128 H 100 07/29/20 20:06 108 H 169/121 H 100 07/29/20 20:02 111 H 175/115 H 100 07/29/20 19:53 115 H 18 175/115 H 97 Coding Level of Care Code Critical Care 1st 30-74 mins Diagnoses Admitted to intensive care unit Z78.9 Endotracheally intubated Z97.8 Aggressive behavior R46.89 Antisocial personality disorder F60.2 Alcohol abuse F10.10 Cluster B personality disorder F60.9 Noncompliance Z91.19 Time Spent (min) 45
--- NOTE | 2020-07-29 22:26 | Critical Care Consultation ---
Date of Consultation July 29, 2020 History of Present Illness Allergies Allergy/AdvReac Type Severity Reaction Status Date / Time Penicillins Allergy Intermediate Unknown Verified 05/08/20 01:36 haloperidol [From Haldol] AdvReac Unknown Verified 05/08/20 01:36 Home Medications Medication Instructions Recorded Confirmed Type clonidine HCl 0.1 mg PO HS 05/08/20 05/08/20 History lorazepam 0.5 mg PO UD PRN 05/08/20 05/08/20 History olanzapine 20 mg PO DAILY 05/08/20 05/08/20 History Patient History Medical History Alcohol abuse Alcohol intoxication Antisocial personality disorder Autism spectrum disorder Cannabis abuse Cluster B personality disorder Noncompliance Outbursts of anger Self-injurious behavior Suicidal ideation Suicide gesture Surgical History No pertinent past surgical history Family History Mother Bipolar disorder Uncle Drug addiction Social History Smoking Status: Smoker, status unknown Tobacco Type: Cigarettes Hx Alcohol Use: Yes Alcohol type: beer, wine and hard liquor Preferred Language: Maltese Communication Ability: Effective Communication Ability Comment: pt currently intubated Visual Impairment: No Limitations Hearing Ability: Normal Heavy Equipment Supervisor Required: No Beliefs That Will Affect Care: None Current Living Situation: Family Other Information That Helps Us Care for You: No Assistive Devices: None Results & Data Results & Data ([facility]) Vital Signs (Past 12 Hours) Vital Signs Pulse Resp BP Pulse Ox 07/29/20 21:54 89 144/98 H 100 07/29/20 21:48 97 H 156/108 H 100 07/29/20 21:45 99 H 168/116 H 98 07/29/20 21:43 93 H 176/122 H 98 07/29/20 21:40 94 H 170/120 H 98 07/29/20 21:38 96 H 167/117 H 97 07/29/20 21:35 98 H 165/112 H 92 07/29/20 21:33 87 154/102 H 100 07/29/20 21:30 89 155/100 H 100 07/29/20 21:28 91 H 152/101 H 100 07/29/20 21:25 93 H 160/104 H 100 07/29/20 21:23 98 H 171/103 H 07/29/20 21:20 96 H 155/102 H 07/29/20 21:18 97 H 157/102 H 07/29/20 21:15 102 H 162/115 H 95 07/29/20 21:13 98 H 178/119 H 07/29/20 21:10 105 H 173/116 H 07/29/20 21:08 102 H 160/118 H 07/29/20 21:05 102 H 198/138 H 07/29/20 21:03 102 H 189/133 H 07/29/20 21:02 108 H 195/143 H 07/29/20 20:35 115 H 186/128 H 07/29/20 20:33 117 H 168/119 H 07/29/20 20:30 113 H 171/120 H 07/29/20 20:28 119 H 174/124 H 07/29/20 20:25 123 H 179/131 H 07/29/20 20:23 121 H 172/128 H 07/29/20 20:20 118 H 168/120 H 97 07/29/20 20:18 115 H 171/127 H 07/29/20 20:15 115 H 170/125 H 07/29/20 20:13 114 H 156/114 H 07/29/20 20:11 113 H 158/129 H 100 07/29/20 20:10 114 H 163/125 H 07/29/20 20:08 119 H 167/128 H 07/29/20 20:06 108 H 169/121 H 100 07/29/20 20:02 111 H 175/115 H 07/29/20 19:53 115 H 18 175/115 H 97 Coding
[2020-07-29] MEDS ORDERED: ACETAMINOPHEN 1000 MG/100 ML IV IV PRN (22:29)
[2020-07-29] MEDS ORDERED: ETOMIDATE 2 MG/ML 20 ML VIAL IV ONE (22:29)
[2020-07-29] MEDS ORDERED: ALBUT/IPRATROP 3MG/0.5MG NEB 3 ML VIAL INH PRN (22:29)
[2020-07-29] MEDS ORDERED: ICU PROTOCOL FOR HYPERGLYCEMIA PRN (22:29)
[2020-07-29] MEDS ORDERED: STAT IV Infusion **Titration per Protocol STA (22:44)
[2020-07-29] MEDS ORDERED: ENOXAPARIN INJ 40 MG/0.4 ML SYR SQ SCH (23:00)
[2020-07-29] MEDS: NORMOSOL-R 1,000 ML IV SCH (23:09)
[2020-07-29] MEDS: FAMOTIDINE 20 MG in SYRINGE 3 ML IV SCH (23:13)
[2020-07-29] MEDS ORDERED: GLUCOSE 10 TABS/TUBE PO PRN (23:27)
[2020-07-29] MEDS ORDERED: GLUCAGON FOR INJ 1 MG VIAL SQ PRN (23:27)
[2020-07-29] MEDS ORDERED: GLUCOSE 40% GEL 15 GM TUBE PO PRN (23:27)
[2020-07-29] MEDS ORDERED: DEXTROSE 50% 50 ML SYRINGE IV PRN (23:27)
[2020-07-29] MEDS ORDERED: CARBOHYDRATES FOR HYPOGLYCEMIA PO PRN (23:27)
[2020-07-29] MEDS: propofoL 1,000 MG/100 ML VIAL IV SCH ×2 (23:40→23:52)
[2020-07-30] MEDS: PROPOFOL BOLUS FROM BAG IV PRN ×3 (00:04→04:46)
[2020-07-30] MEDS: fentaNYL DRIP 1,250 MCG/250 ML BAG IV SCH ×2 (00:11→14:11)
[2020-07-30] MEDS: propofoL 1,000 MG/100 ML VIAL IV SCH ×4 (03:13→14:11)
[2020-07-30 03:17] LABS: iSTAT Arterial Blood Gas HCO3 24 meg/L (19-24); iSTAT Arterial Blood Gas pCO2 39 mmHg (35-46); iSTAT Arterial Blood Gas pO2 142 mmHg (80-95); iSTAT Carbon Dioxide 25 mmol/L (24-31); iSTAT Hematocrit 43 % (42-52); iSTAT Hemoglobin 14.6 g/dl (14.0-18.0); iSTAT Potassium 3.8 mmol/L (3.3-5.0); iSTAT Sodium 140 mmol/L (135-144)
[2020-07-30 05:40] LABS: Basophils # (auto) 0.03 K/uL (0-0.2); Basophils % (auto) 0.3 %; Eosinophils # (auto) 0.09 K/uL (0-0.5); Eosinophils % (auto) 0.9 %; Hematocrit (blood only) 41.6 % (42-52); Hemoglobin 14.5 g/dL (14.0-18.0); Immature Granulocytes # (auto) 0.02 K/uL (0.00-0.02); Immature Granulocytes % (auto) 0.2 %; Lymphocytes # (auto) 2.66 K/uL (1.2-3.4); Lymphocytes % (auto) 26.5 %; Mean Corpuscular Hemoglobin 31.1 pg (25-34); Mean Corpuscular Hgb Conc 34.9 g/dL (32-36); Mean Corpuscular Volume 89.3 fL (80-100); Mean Platelet Volume 8.5 fL (7.4-10.4); Neutrophils # (auto) 6.34 K/uL (1.4-6.5); Neutrophils % (auto) 63.1 %; Platelet Count 265 K/uL (130-400); RDW Coefficient of Variation 13.2 % (11.5-14.5); RDW Standard Deviation 42.9 fL (36.4-46.3); Red Blood Count 4.66 M/uL (4.7-6.1); White Blood Count 10.04 K/uL (4.8-10.8)
[2020-07-30 06:17] LABS: Alanine Aminotransferase 27 U/L (12-78); Albumin Globulin Ratio 1.1 (0.9-2); Albumin Level 3.4 gm/dl (3.4-5.0); Alkaline Phosphatase 52 U/L (45-117); Aspartate Aminotransferase 21 U/L (15-37); BUN Creatinine Ratio 17.5 (10-20); Bilirubin,Total 0.8 mg/dl (0.2-1); Blood Urea Nitrogen 10 mg/dl (7-18); Calcium 7.7 mg/dl (8.5-10.1); Carbon Dioxide 23 mmol/L (21-32); Chloride 110 mmol/L (98-107); Creatinine Clr Calc Pharmacy 210.7 ml/min; Est GFR (African American) > 150.0 ml/min; Est GFR (Non-African American) 144.7 ml/min; Glucose 76 mg/dl (70-99); Phosphorus 3.8 mg/dl (2.5-4.9); Potassium 3.8 mmol/L (3.5-5.1); Sodium 140 mmol/L (136-145); Total Protein 6.4 gm/dl (6.4-8.2)
--- NOTE | 2020-07-30 08:22 | XRay Report ---
XR chest 1V portable CLINICAL HISTORY: Respiratory failure COMPARISON STUDY: 07/29/2020 FINDINGS: There is an endotracheal tube 4.7 cm above the luis. There is an enteric tube within the stomach. There are bilateral perihilar opacities, likely atelectatic although an infectious/inflammat ory process could appear similar. There are no large pleural effusions. There is no pneumothorax.[ IMPRESSION: 1. Satisfactory positioning of the endotracheal tube and nasogastric tubes 2. Bilateral perihilar opacities likely atelectatic although an infectious/inflammatory process could appear similar ACT 112: Negative or not required by law. Electronically signed by: Nadir Miller M.D. 07/30/2020 8:20 AM
--- NOTE | 2020-07-30 08:47 | Critical Care Progress Note ---
Date of Service July 30, 2020 Assessment & Plan (1) Admitted to intensive care unit: Neurologic: Currently intubated and sedated with propofol and fentanyl. Weaning down sedation to assess his mental status. We will likely extubate today. He is currently on a 302. Psych is following. Started on thiamine given the presence of alcohol in his bloodstream. Urine drug screen negative. Pulmonary: Minimal ventilator support at this time. Intubated due to aggressive behavior and a threat to himself and those immediately around him Cardiovascular: No issues. Continue to monitor on telemetry. QTc is acceptable. 5 mg of olanzapine ordered for p.o. administration this morning. Gastrointestinal: OG in place. Famotidine for prophylaxis. Renal: No issues. Infectious disease: No infectious process at this time. Hematologic: No issues. Endocrine: No issues. Lines and tubes: Peripheral IVs x3. Intubated. VTE prophylaxis: Lovenox. CODE STATUS: Full code Family at bedside: Not available at bedside I have personally spent 33 minutes of critical care time in the direct man agement of this patient. This is a life/limb threatening event. This includes time spent evaluating patient, direct bedside care, chart review, placing orders, interpretation of diagnostic studies, discussion with consultants, patient, and family members, as well as other required patient management activities. This time is exclusive of all separately billable procedures, and teaching time and separate from and in addition to any other critical care service time. Thank you for allowing us to participate in the care of this patient. (2) Aggressive behavior: (3) Alcohol abuse: (4) Antisocial personality disorder: Admission and Anticipated Discharge Date Admission Date: July 29, 2020 Subjective Patient continues to be heavily sedated with propofol and fentanyl this morning. No significant events since being intubated. Intubated overnight due to combativeness in the ER. Review of Systems Review of Systems: Unobtainable due to cognitive status and Unobtainable due to endotracheal tube Physical Exam Physical Exam: VITAL SIGNS - Vital signs and nursing notes were reviewed. GENERAL - 20-year-old male appearing his stated age who is in 4 point restraints and sedate. SKIN - Without rashes. HEAD - NC/AT. EYES - PERRL with EOMI bilaterally. Sclera anicteric. EARS - No deformities of external structures noted on gross examination bilaterally. NOSE - Midline and without cyanosis. Dried epistaxis noted to the external nares bilaterally. MOUTH/OROPHARYNX - Without perioral cyanosis. Buccal mucosa pink and moist and without leukoplakia. Good dentition noted. NECK - Neck with FROM. Supple to palpation. No nuchal rigidity. LUNGS - Chest wall symmetric without accessory muscle use, intercostals retractions, or central cyanosis. Normal vesicular breath sounds CTA B/L. No wheezes, rales, or rhonchi appreciated. CARDIAC - RRR with S1/S2. No murmur, rubs, or gallops appreciated. ABDOMEN - Abdominal contour flat without pulsations or visible masses. BS normoactive all four quadrants. No tenderness, palpable masses, hepatosplenomegaly, or ascites noted. EXTREMITIES - No clubbing or peripheral cyanosis. No pretibial edema present. +3/5 radial and dorsalis pedis pulses palpated throughout. +5/5 strength noted in UE/LE bilaterally. NEUROLOGIC - Cranial nerves II through XII grossly intact. No focal neurological deficits noted. Unable to fully assess secondary to level of sedation. Results & Data Results & Data ([facility]) Vital Signs (Past 12 Hours) Vital Signs Temp Pulse Resp BP Pulse Ox 07/30/20 05:42 67 125/70 97 07/30/20 05:30 98.8 F 70 136/76 95 07/30/20 05:00 73 120/73 07/30/20 04:30 75 135/73 94 07/30/20 04:00 98.6 F 75 126/73 94 07/30/20 03:30 72 137/76 95 07/30/20 03:10 79 07/30/20 03:05 76 20 97 07/30/20 03:00 74 139/86 98 07/30/20 02:30 75 132/76 98 07/30/20 02:00 99.0 F 76 133/75 97 07/30/20 01:30 82 137/95 100 07/30/20 01:00 82 143/93 H 100 07/30/20 00:53 79 142/99 H 100 07/30/20 00:30 80 156/98 H 100 07/30/20 00:12 88 157/102 H 100 07/30/20 00:00 88 151/113 H 100 07/29/20 23:30 89 143/95 H 100 07/29/20 23:25 90 21 100 07/29/20 23:00 90 155/103 H 07/29/20 22:25 94 H 159/103 H 07/29/20 22:23 104 H 167/102 H 07/29/20 22:20 100 H 163/118 H 07/29/20 22:15 91 H 148/101 H 100 07/29/20 22:13 87 151/99 H 100 07/29/20 22:10 84 148/105 H 100 07/29/20 22:08 88 152/102 H 100 07/29/20 22:05 90 150/103 H 100 07/29/20 22:03 86 150/101 H 100 07/29/20 22:00 86 149/98 H 100 07/29/20 21:58 89 155/104 H 100 07/29/20 21:55 89 151/101 H 100 07/29/20 21:54 89 144/98 H 100 07/29/20 21:48 97 H 156/108 H 100 07/29/20 21:45 99 H 168/116 H 98 07/29/20 21:43 93 H 176/122 H 98 07/29/20 21:40 94 H 170/120 H 98 07/29/20 21:38 96 H 167/117 H 97 07/29/20 21:35 98 H 165/112 H 92 07/29/20 21:33 87 154/102 H 100 07/29/20 21:30 89 155/100 H 100 07/29/20 21:28 91 H 152/101 H 100 07/29/20 21:25 93 H 160/104 H 100 07/29/20 21:23 98 H 171/103 H 98 07/29/20 21:20 96 H 155/102 H 96 07/29/20 21:18 97 H 157/102 H 07/29/20 21:15 102 H 162/115 H 95 07/29/20 21:13 98 H 178/119 H 96 07/29/20 21:10 105 H 173/116 H 07/29/20 21:08 102 H 160/118 H 96 07/29/20 21:05 102 H 198/138 H 96 07/29/20 21:03 102 H 189/133 H 96 07/29/20 21:02 108 H 195/143 H 98 vital signs, labs and imaging reviewed Coding Level of Care Code Critical Care 1st 30-74 mins Diagnoses Admitted to intensive care unit Z78.9 Aggressive behavior R46.89 Alcohol abuse F10.10 Antisocial personality disorder F60.2 Time Spent (min) 33
[2020-07-30] MEDS: NORMOSOL-R 1,000 ML IV SCH (08:54)
[2020-07-30] MEDS ORDERED: OLANZapine 5 MG TABLET PO SCH (09:00)
[2020-07-30] MEDS ORDERED: THIAMINE HCL 100 MG in SYRINGE 9 ML IV SCH (09:00)
[2020-07-30] MEDS: FAMOTIDINE 20 MG in SYRINGE 3 ML IV SCH (09:38)
--- NOTE | 2020-07-30 10:10 | Electrocardiogram Report ---
Test Reason : Blood Pressure : / mmHG Vent. Rate : 114 BPM Atrial Rate : 114 BPM P-R Int : 164 ms QRS Dur : 108 ms QT Int : 336 ms P-R-T Axes : 019 032 032 degrees QTc Int : 463 ms Sinus tachycardia Otherwise normal ECG When compared with ECG of 03-NOV-2019 01:04, AR interval has decreased Confirmed by Micha Smith ([id number]) on 07/30/2020 10:10:15 AM Referred By: REFERRED SELF Confirmed By:Micha Smith
--- NOTE | 2020-07-30 10:21 | Electrocardiogram Report ---
Test Reason : Blood Pressure : / mmHG Vent. Rate : 059 BPM Atrial Rate : 059 BPM P-R Int : 170 ms QRS Dur : 098 ms QT Int : 414 ms P-R-T Axes : 047 046 040 degrees QTc Int : 409 ms Sinus bradycardia Otherwise normal ECG When compared with ECG of 29-JUL-2020 20:35, (unconfirmed) Vent. rate has decreased BY 55 BPM Confirmed by Micha Smith ([id number]) on 07/30/2020 10:21:31 AM Referred By: REFERRED SELF Confirmed By:Micha Smith
--- NOTE | 2020-07-30 14:38 | Discharge Summary ---
Date of Service July 30, 2020 Admission HPI Per Admitting Provider The patient is a 20-year-old male who was brought to the emergency department with police due to being very combative, exhibiting self harming behavior, yelling and thrashing about in the ED, and threatening to hurt himself and staff. Patient was intubated after receiving ketamine IV, with plans to admit to the ICU. Patient was noted to have a history of alcohol abuse, and alcohol level in the ED with 152.2. There were no active signs of infection. Principal Diagnosis Severe agitation, alcohol intoxication Discharge Exam Constitutional WD/WN, vitals as above Eyes + anicteric sclerae and EOM intact bilaterally Neck trachea midline, no thyromegaly Respiratory normal respiratory effort, lungs clear to auscultation Cardiovascular RRR, no murmur, no edema Chest (Breasts) Chest: normal inspection of chest Gastrointestinal (Abdomen) normal bowel sounds, soft, nontender, no hepatosplenomegaly Musculoskeletal Extremities: extremities normal to inspection; no cyanosis and no clubbing Skin no rashes, warm and dry Neurologic moves all extremities and awake; no focal motor deficits Psychiatric Orientation: alert and oriented x 3 Eye Contact: good eye contact Speech: normal rate/rhythm/volume of speech Affect: + flat affect Lymphatic no lymphedema Discharge Data Allergies Allergy/AdvReac Type Severity Reaction Status Date / Time Penicillins Allergy Intermediate Unknown Verified 05/08/20 01:36 haloperidol [From Haldol] AdvReac Unknown Verified 05/08/20 01:36 Consultations 07/29/20 20:18 Consult Screwdown Operator Stat 07/29/20 21:15 ED Decision to Admit Stat 07/29/20 22:29 Consult Screwdown Operator Routine 07/30/20 11:17 Consult Psychiatry Routine Ordered Studies 07/29/20 19:57 CT cervical spine wo con Stat CT facial bones wo con Stat CT head/brain wo con Stat Cervical Spine CT 07/29/20 19:57 CT SCAN OF THE CERVICAL SPINE CLINICAL HISTORY: Trauma. COMPARISON STUDY: CT of the cervical spine dated 05/08/2020. TECHNIQUE: CT scan of the cervical spine is performed from the skull base to the upper thoracic spine. Images are reviewed in the axial, sagittal, and coronal planes. IV contrast was not administered for this examination. A dose lowering technique was utilized adhering to the principles of ALARA. CT DOSE: 1452.73 mGy.cm FINDINGS: Skeletal structures: The skeletal structures are well mineralized. There is no evidence of fracture or subluxation involving the cervical spine. Vertebral body height and alignment are maintained. There is straightening of the cervical lordosis. The odontoid process and lateral masses are intact. The atlantoaxial articulation is preserved. The spinous processes appear intact. Intervertebral discs: The disc spaces are well maintained. Central canal: Widely patent. Soft tissues: The prevertebral and paraspinous soft tissues are within normal limits. Fluid/secretions fill the pharynx. Calvarium: The visualized calvarium at the skull base appears intact. Brain parenchyma: Partially visualized brain parenchyma at the skull base is within normal limits. Sinuses and mastoids: The visualized paranasal sinuses are clear. The mastoid air cells are well pneumatized. Cerumen fills the external auditory canals. Lung apices: An endotracheal tube is in place. Apical lung parenchyma is clear as visualized. IMPRESSION: There is no evidence of fracture or subluxation involving the cervical spine. ACT 112: Negative or not required by law. Electronically signed by: Dewayne Lackey M.D. 07/29/2020 9:07 PM Chest X-Ray 07/29/20 19:57 SINGLE VIEW CHEST CLINICAL HISTORY: Intubation. Overdose. FINDINGS: 2 AP, portable, supine and upright chest radiographs are obtained. No prior studies are available for comparison at the time of dictation. The examination is degraded by portable technique and patient rotation. An endotracheal tube has been placed. On the initial image this projects over the right mainstem bronchus. On the second image this is been pulled back and projects 1.4 cm above the luis. The cardiomediastinal silhouette is unremarkable. The lungs and pleural spaces are clear. No pneumothorax is seen. The bony thorax is grossly intact. IMPRESSION: 1. An endotracheal tube has been placed as above. This projects 1.4 cm above the luis. 2. There is no airspace consolidation, pleural effusion, or pneumothorax.. ACT 112: Negative or not required by law. Electronically signed by: Dewayne Lackey M.D. 07/29/2020 8:[address] 07/29/20 19:57 CT SCAN OF THE FACIAL BONES WITHOUT IV CONTRAST CLINICAL HISTORY: Trauma. Intoxication. Facial injury. COMPARISON STUDY: CT of the facial bones dated 11/23/2018. TECHNIQUE: High-resolution CT scan of the facial bones is performed. Images are reviewed in the axial, sagittal, and coronal planes. IV contrast was not administered for this examination. A dose lowering technique was utilized adhering to the principles of ALARA. FINDINGS: The skeletal structures are well mineralized. There is no evidence of facial bone fracture. The bony orbits are intact and the orbital contents are within normal limits. The zygomatic arches, nasal bones, and pterygoid plates are preserved. The maxilla and mandible are intact. There are no layering blood products within the paranasal sinuses. There is no air-fluid level in the right maxillary antrum. Mild mucosal thickening is noted in the ethmoid sinuses. The remaining paranasal sinuses are clear. The mastoid air cells are well pneumatized. The visualized calvarium and upper cervical spine are maintained. Partially imaged brain parenchyma is within normal limits. Cerumen fills the external auditory canals. An endotracheal tube is in place. There is fluid within the nasal cavity and pharynx. IMPRESSION: There is no evidence of facial bone fracture. ACT 112: Negative or not required by law. Electronically signed by: Dewayne Lackey M.D. 07/29/2020 9:[address] 07/29/20 19:57 CT SCAN OF THE BRAIN WITHOUT IV CONTRAST CLINICAL HISTORY: Trauma. COMPARISON STUDY: CT of the brain dated 05/08/2020. TECHNIQUE: Unenhanced axial CT scan of the brain is performed from the vertex to the skull base. A dose lowering technique was utilized adhering to the principles of ALARA. The examination is compromised by motion artifact. The patient was scanned twice in an effort to improve image quality. FINDINGS: An endotracheal tube is noted on the parachute cushion installer tomogram. Brain parenchyma: The brain parenchyma is normal in appearance. There is no hemorrhage, mass effect, or evidence of acute territorial ischemia by CT criteria. Sharma-white matter differentiation is preserved. No extra-axial fluid collection is seen. Ventricles, sulci, cisterns: Normal in configuration. Intracranial vasculature: The visualized intracranial vasculature at the skull base is normal in appearance. Calvarium: There is no depressed calvarial fracture. Sinuses and mastoids: There is an air-fluid level in the right maxillary antrum. The remaining visualized paranasal sinuses are clear. The mastoid air cells are well pneumatized. Orbits: The bony orbits are grossly intact. IMPRESSION: No acute intracranial abnormality noting a motion degraded examination. ACT 112: Negative or not required by law. Electronically signed by: Dewayne Lackey M.D. 07/29/2020 9:03 PM Chest X-Ray 07/29/20 21:43 SINGLE VIEW CHEST CLINICAL HISTORY: Vomiting. FINDINGS: An AP, portable, supine chest radiograph is compared to study performed earlier the same day 07/29/2020. The endotracheal tube has been pulled back, now projecting 4.5 cm above the luis. An enteric tube has been placed. The tip projects below the diaphragm and is coiled over the gastric fundus. The cardiomediastinal silhouette is unremarkable. Atelectasis is noted in the right upper lobe. No airspace consolidation is seen typical for pneumonia and no large pleural effusion is identified. No pneumothorax is seen. The bony thorax is grossly intact. IMPRESSION: 1. Endotracheal and enteric tubes are in place as above. 2. Right upper lobe atelectasis is new as compared to previous. ACT 112: Negative or not required by law. Electronically signed by: Dewayne Lackey M.D. 07/29/2020 10:07 PM KUB X-Ray 07/29/20 21:43 KUB CLINICAL HISTORY: Vomiting. FINDINGS: An AP, portable, supine abdominal radiograph is compared to study dated 07/15/2011 and correlated with abdominal CT dated 09/24/2019. There is a nonobstructed abdominal bowel gas pattern. [id number] fecal retention is seen throughout the colon. No evidence of intraperitoneal free air is identified on these supine views. An enteric tube is partially visualized projecting below the left hemidiaphragm. The bony structures appear intact. IMPRESSION: 1. No bowel obstruction. 2. An enteric tube projects below the diaphragm. Electronically signed by: Dewayne Lackey M.D. 07/29/2020 10:05 PM Chest X-Ray 07/30/20 06:00 XR chest 1V portable CLINICAL HISTORY: Respiratory failure COMPARISON STUDY: 07/29/2020 FINDINGS: There is an endotracheal tube 4.7 cm above the luis. There is an enteric tube within the stomach. There are bilateral perihilar opacities, likely atelectatic although an infectious/inflammatory process could appear similar. There are no large pleural effusions. There is no pneumothorax.[ IMPRESSION: 1. Satisfactory positioning of the endotracheal tube and nasogastric tubes 2. Bilateral perihilar opacities likely atelectatic although an infectious/inflammatory process could appear similar ACT 112: Negative or not required by law. Electronically signed by: Nadir Miller M.D. 07/30/2020 8:20 AM Hospital Course (1) Admitted to intensive care unit: The patient was intubated in the emergency department for self protection and protection of others after becoming intoxicated with EtOH and calling the police, making threats of self-harm and harm to others after arrival in ER. He was sedated throughout the night and was able to be extubated the next morning by Screwdown Operator. He was eating and drinking, had no complaints and denied any SI/HI. Labs were unremarkable and urine drug screen negative. Was seen by Psychiatry and no further inpatient Psych stay warranted. Pt can be discharged to home and resume home meds. It is unclear which meds he is taking as he has not filled his Seroquel and lorazepam in quite some time, however there was a recent fill of his clonidine. He can continue his usual home meds and f/u with outpt Psych. Appreciate Screwdown Operator and Psychiatry management, stable for dc to home Harris was discontinued prior to discharge (2) Aggressive behavior: Aggressive behavior/antisocial personality disorder/autism spectrum disorder/head-banging/homicidal ideation/outbursts of anger/self-injurious behavior- as above (3) Antisocial personality disorder: (4) Cluster B personality disorder: (5) Mood disorder: (6) Autism spectrum disorder: (7) Head banging: (8) Homicidal ideation: (9) Outbursts of anger: (10) Self-injurious behavior: (11) Endotracheally intubated: See above Total Time Total Time Spent Total Time Spent (In Minutes): 35 min Discharge Plan Discharge Items Patient Disposition: Home - Self-Care Reason For Visit: AGITATION, INTUBATED IN ED Discharge Diagnosis: Severe agitation Condition on Discharge: Good Activity: Resume your previous activity Non-emergency contact: Primary Care Provider Call non-emergency contact if: you have any medication questions and your symptoms worsen Follow-up/Referrals: PCP,NO [Primary Care Provider] - Diet: Regular Addtl Attending Provider Instructions: Please follow up with your primary care provider within 1-2 weeks. Pending Studies at Discharge: No Stand-Alone Forms: My [facility], Smoking Cessation Medications and DC Order Prescriptions: Continued clonidine HCl 0.1 mg tablet 0.1 mg PO HS RF: 0 Discontinued lorazepam 0.5 mg tablet 0.5 mg PO UD PRN (Reason: Anxiety) RF: 0 olanzapine 20 mg tablet 20 mg PO DAILY RF: 0 Discharge Orders: Discharge Order (Routine); Ordered 07/30/20 Ordered By: Brisa Jeter Admission Data Admit Date/Time: 07/29/20 21:22 Attending Provider: Brisa Jeter Admit Provider: Jayce Starks Primary Care Provider: PCP,NO Other Providers: Avinash Hoffman ; Jayce Starks ; Bri Whitehead ; Dr Constantin ; Georgia Avila ; Thomas Prasad Other Interventions: Discharge Summary Assessment (RN) Last Done: 07/30/20 15:05 Coding Level of Care Code D/C Day Management >30 mins Diagnoses Admitted to intensive care unit Z78.9 Aggressive behavior R46.89 Antisocial personality disorder F60.2 Cluster B personality disorder F60.9 Mood disorder F39 Autism spectrum disorder F84.0 Head banging F98.4 Homicidal ideation R45.850 Outbursts of anger R45.4 Self-injurious behavior Z72.89 Endotracheally intubated Z97.8
[2020-07-30] MEDS ORDERED: SUCCINYLCHOLINE CHLORIDE 20 MG/ML 10 ML VIAL IV ONE (15:34)
[2020-07-30] MEDS ORDERED: KETAMINE HCL INJ 50 MG/ML 10 ML VIAL IV ONE (15:34)
[2020-07-30] MEDS ORDERED: ROCURONIUM BROMIDE 10 MG/ML 5 ML VIAL IV ONE (15:34)
[2020-07-30] MEDS ORDERED: MIDAZOLAM HCL 5 MG/ML 1 ML VIAL IV ONE (15:34)
[2020-07-30] MEDS ORDERED: ETOMIDATE 2 MG/ML 20 ML VIAL IV ONE (15:34)
--- NOTE | 2020-07-30 15:40 | Psychiatric Consultation ---
Date of Consultation July 30, 2020 Impression / Recommendations Impression Patient is a 89-bmuq-n male with antisocial personality disorder who presented following a episode of belligerence while intoxicated. At this time patient is denying any suicidal or homicidal ideation. He is denying and void of any psychotic symptoms. Patient does have a baseline level of anger and impulsivity which put him at chronic risk in the community. Patient unwilling to go to alcohol rehab at this time. Furthermore inpatient hospitalizations have not been shown to be helpful for this patient specifically, likely due to his anti-social tendencies. Patient has a supply of medications that he can take which will help to address his mood as well as outpatient providers who can adjust those medications as necessary. There is no further assistance inpatient psychiatry can provide at this time. Patient can be discharged back to the community. Inventory Assets Strengths: Desire to get better Needs: Sobriety, medication compliance Risk Factors Assessment Male: Yes : No Do You Have Access To A Gun?: No Mental Health Diagnoses: Yes Previous Psychiatric Hospitalization: Yes Hopelessness: No Protective Factors Assessment Stable Relationships: Yes Supportive Family: Yes Psych History Chief Complaint "I do not want to be here". History of Present Illness Patient seen today alongside liaison. Patient is a 23-year-old male with an extensive past psychiatric history notable for multiple inpatient hospitalizations due to anger and aggression. Patient had presented last night severely intoxicated and extremely belligerent. Required intubation for safety. Upon awakening today patient continued to be somewhat aggressive and rude with staff. Upon evaluation patient was initially rude to fiction and nonfiction prose writer and liaison although did warm up after some time. Patient is able to adamantly deny any current suicidal ideation. He states that he was drinking due to grief he has with a friend and forgot to take his medications last night. He stated that this caused him to be quite upset and more inebriated he got the more upset he got. He remembers reaching out to the police but does not remember much after that. Patient denies any psychotic symptoms today or in the past. States that he is normally compliant with medication and is unsure why he was unable to take his dosages last night. He denies any manic or paranoid symptoms at presently. He states that he has a plan to go live with his grandpa which he feels will be more helpful for him to prevent his drinking. Patient states that he has a supply of medications at home, and that he is willing to continue his medications and follow-up with outpatient providers. Past Psychiatric History Previous Psych History: Multiple inpatient hospitalizations Current Psychiatric Diagnosis: Antisocial personality disorder Do You Have Access To A Gun?: No History of Previous Suicide Attempt: Yes Allergies Allergy/AdvReac Type Severity Reaction Status Date / Time Penicillins Allergy Intermediate Unknown Verified 05/08/20 01:36 haloperidol [From Haldol] AdvReac Unknown Verified 05/08/20 01:36 Home Medications Medication Instructions Recorded Confirmed Type clonidine HCl 0.1 mg PO HS 05/08/20 05/08/20 History Personal History Beliefs That Will Affect Care: None Patient History Medical History Alcohol abuse Alcohol intoxication Antisocial personality disorder Autism spectrum disorder Cannabis abuse Cluster B personality disorder Noncompliance Outbursts of anger Self-injurious behavior Suicidal ideation Suicide gesture Surgical History No pertinent past surgical history Family History Mother Bipolar disorder Uncle Drug addiction Social History Smoking Status: Smoker, status unknown Tobacco Type: Cigarettes Hx Alcohol Use: Yes Alcohol type: beer, wine and hard liquor Preferred Language: Martiniquais Communication Ability: Effective Communication Ability Comment: pt currently intubated Visual Impairment: No Limitations Hearing Ability: Normal Blower And Compressor Assembler Required: No Beliefs That Will Affect Care: None Current Living Situation: Family Other Information That Helps Us Care for You: No Assistive Devices: None Physical Exam Psychiatric: Orientation: alert Apperance: appeared stated age Eye Contact: + fair eye contact Motor Behavior: no abnormal motor movements Speech: + loud speech Affect: + irritable affect Mood: + angry mood Thought Process: goal directed thought process and linear/logical thought process Thought Content: reality based without delusions; no delusions, no derealization, no hopelessness and no worthlessness Suicidal Thoughts: denies suicidal thoughts Homicidal Thoughts: denies homicidal thoughts Hallucinations: no auditory hallucinations and no visual hallucinations Cognition: recent memory grossly intact Estimated Intelligence: average estimated intelligence Insight: + fair insight Judgement: + limited judgement Vital Signs (Past 24 Hours): Last Vital Signs Temp 37.1 C 07/30/20 15:05 Pulse 97 H 07/30/20 15:00 Resp 26 H 07/30/20 15:05 BP 143/88 H 07/30/20 13:00 Pulse Ox 98 07/30/20 15:05 Review of Systems All systems reviewed & are unremarkable except as noted in HPI & below Results & Data (PSY) Medications Administered Enoxaparin Sodium (Enoxaparin Inj 40 Mg/0.4 Ml Syr) 40 mg SQ Q24H FANNY Stop: 08/28/20 22:59 Last Admin: 07/29/20 23:12 Dose: 40 mg Documented by: [id number] Fentanyl Citrate (Fentanyl Bolus From Bag) 50 mcg IV Q60M PRN PRN Reason: Pain or Agitation Stop: 08/12/20 22:43 Last Admin: 07/30/20 04:45 Dose: 50 mcg Documented by: [id number] Admin: 07/30/20 03:25 Dose: 50 mcg Documented by: [id number] Admin: 07/30/20 01:39 Dose: 50 mcg Documented by: [id number] Admin: 07/29/20 23:04 Dose: 50 mcg Documented by: [id number] Parenteral Electrolytes (Normosol-R) 1,000 mls @ 100 mls/hr IV .Q10H FANNY Stop: 08/28/20 22:28 Last Admin: 07/30/20 08:54 Dose: 100 mls/hr Documented by: [id number] Infusion: 07/30/20 08:54 Dose: 100 mls/hr Documented by: [id number] Admin: 07/29/20 23:09 Dose: 100 mls/hr Documented by: [id number] Famotidine 20 mg/ Syringe 5 mls @ 2.5 mls/min IV BID FANNY Stop: 08/28/20 22:59 Last Admin: 07/30/20 09:38 Dose: 2.5 mls/min Documented by: [id number] Admin: 07/29/20 23:13 Dose: 2.5 mls/min Documented by: [id number] Propofol (Diprivan) 1,000 mg in 100 mls @ 22.752 mls/hr IV .Q4H24M FANNY; Protocol Stop: 08/01/20 22:44 Last Admin: 07/30/20 14:11 Dose: Not Given Documented by: [id number] Admin: 07/30/20 14:11 Dose: Not Given Documented by: [id number] Titration: 07/30/20 11:10 Dose: 0 mcg/kg/min, 0 mls/hr Documented by: [id number] Titration: 07/30/20 08:26 Dose: 40 mcg/kg/min, 22.8 mls/hr Documented by: [id number] Admin: 07/30/20 08:23 Dose: 50 mcg/kg/min, 28.4 mls/hr Documented by: [id number] Cosigned by: [id number] Titration: 07/30/20 08:23 Dose: 49.05 mcg/kg/min, 27.9 mls/hr Documented by: [id number] Cosigned by: [id number] Admin: 07/30/20 05:59 Dose: 49.05 mcg/kg/min, 27.9 mls/hr Documented by: [id number] Cosigned by: [id number] Titration: 07/30/20 05:59 Dose: 49.05 mcg/kg/min, 27.9 mls/hr Documented by: [id number] Cosigned by: [id number] Admin: 07/30/20 03:13 Dose: 49.05 mcg/kg/min, 27.9 mls/hr Documented by: [id number] Cosigned by: [id number] Titration: 07/30/20 03:13 Dose: 49.05 mcg/kg/min, 27.9 mls/hr Documented by: [id number] Cosigned by: [id number] Admin: 07/29/20 23:52 Dose: 49.05 mcg/kg/min, 27.9 mls/hr Documented by: [id number] Cosigned by: [id number] Fentanyl Citrate (Fentanyl Drip) 1,250 mcg in 250 mls @ 25 mls/hr IV .Q10H FANNY; Protocol Stop: 08/12/20 22:44 Last Admin: 07/30/20 14:11 Dose: Not Given Documented by: [id number] Titration: 07/30/20 11:10 Dose: 0 mcg/hr, 0 mls/hr Documented by: [id number] Cosigned by: [id number] Titration: 07/30/20 08:26 Dose: 125 mcg/hr, 25 mls/hr Documented by: [id number] Cosigned by: [id number] Titration: 07/30/20 04:49 Dose: 150 mcg/hr, 30 mls/hr Documented by: [id number] Cosigned by: [id number] Titration: 07/30/20 03:26 Dose: 100 mcg/hr, 20 mls/hr Documented by: [id number] Cosigned by: [id number] Titration: 07/30/20 01:37 Dose: 75 mcg/hr, 15 mls/hr Documented by: [id number] Cosigned by: [id number] Titration: 07/30/20 01:06 Dose: 50 mcg/hr, 10 mls/hr Documented by: [id number] Cosigned by: [id number] Admin: 07/30/20 00:11 Dose: 25 mcg/hr, 5 mls/hr Documented by: [id number] Cosigned by: [id number] Thiamine HCl 100 mg/ Syringe 10 mls @ 2 mls/min IV QAM FANNY Stop: 08/29/20 08:59 Last Admin: 07/30/20 09:28 Dose: 2 mls/min Documented by: [id number] Olanzapine (Olanzapine 5 Mg Tablet) 5 mg PO QAM FANNY Stop: 08/29/20 08:59 Last Admin: 07/30/20 09:28 Dose: 5 mg Documented by: [id number] Propofol (Propofol Bolus From Bag) 20 mg IV Q5M PRN PRN Reason: Sedation Stop: 08/01/20 22:43 Last Admin: 07/30/20 04:46 Dose: 20 mg Documented by: [id number] Cosigned by: [id number] Admin: 07/30/20 03:25 Dose: 20 mg Documented by: [id number] Cosigned by: [id number] Admin: 07/30/20 00:04 Dose: 20 mg Documented by: [id number] Cosigned by: [id number] Coding Level of Care Code 38627 [facility] Intl Hosp Care Lvl 2
== END 2020-07-30 15:35 | disposition home or self-care (01) | DRG 951 ==
LOC: ED 19:48 → SUATTDRO 21:22 → 1E 21:22